=== PATIENT | female | born 1975 | race Caucasian/White ===

== ENCOUNTER 2018-08-24 23:41 | Inpatient (IN) | payer MEDICAID, OTHER ==
[2018-08-25] MEDS ORDERED: Sodium Chloride 0.9% 1,000 ML IV STA ×2 (01:13→04:39)
--- NOTE | 2018-08-25 01:16 | ED PDOC ---
HPI: Abdomen Time Seen by Provider: 08/25/18 00:30 Chief Complaint (Nursing): Abdominal Pain Chief Complaint (Provider): abdominal pain History Per: Patient History/Exam Limitations: no limitations Onset/Duration Of Symptoms: Hrs (x5) Current Symptoms Are (Timing): Still Present Location Of Pain/Discomfort: Epigastric Quality Of Discomfort: "Pain" Associated Symptoms: Nausea. denies: Fever, Chills, Vomiting, Diarrhea, Constipation Additional Complaint(s): Beth Velasquez is a 42 year old female, with a past medical history of x2 open heart surgeries due to rheumatic heart disease and infection, who presents to the emergency department accompanied by family for evaluation of an epigastric pain associated with nausea onset since 18:00 tonight. Patient states pain radiates to the back, her last bowel movement was at 19:00 tonight. She denies any fever, chills, cough, chest pain, shortness of breath, vomit, diarrhea, gases, constipation or other medical complaints. PMD: None provided. Past Medical History Reviewed: Historical Data, Nursing Documentation, Vital Signs Vital Signs: Last Vital Signs Temp 98.7 F 08/25/18 00:05 Pulse 73 08/25/18 00:05 Resp 18 08/25/18 00:05 BP 135/73 08/25/18 00:05 Pulse Ox 98 08/25/18 00:05 Primary Care Provider: Rashad Juarez - Medical History Other PMH: rheumatic heart disease, heart infection - Surgical History Surgical History: Cholecystectomy Other surgeries: x2 open heart - Family History Family History: States: Unknown Family Hx - Home Medications Home Medications: Ambulatory Orders Medication Instructions Recorded Metoprolol Succinate [Kapspargo 50 mg PO DAILY 08/25/18 Sprinkle] Warfarin [Coumadin] 5 mg PO ASDIR 08/25/18 Warfarin [Coumadin] 7.5 mg PO ASDIR 08/25/18 - Allergies Allergies/Adverse Reactions: Allergies Allergy/AdvReac Type Severity Reaction Status Date / Time No Known Allergies Allergy Verified 08/25/18 00:05 Review of Systems ROS Statement: Except As Marked, All Systems Reviewed And Found Negative Constitutional: Negative for: Fever, Chills Cardiovascular: Negative for: Chest Pain Respiratory: Negative for: Cough, Shortness of Breath Gastrointestinal: Positive for: Nausea, Abdominal Pain. Negative for: Vomiting, Diarrhea, Constipation Physical Exam - Reviewed Nursing Documentation Reviewed: Yes Vital Signs Reviewed: Yes - Physical Exam Appears: Positive for: No Acute Distress Head Exam: Positive for: ATRAUMATIC, NORMAL INSPECTION, NORMOCEPHALIC Skin: Positive for: Normal Color, Warm, Dry Eye Exam: Positive for: Normal appearance, EOMI, PERRL Neck: Positive for: Normal, Painless ROM Cardiovascular/Chest: Positive for: Regular Rate, Rhythm. Negative for: Murmur Respiratory: Positive for: Normal Breath Sounds. Negative for: Respiratory Distress Gastrointestinal/Abdominal: Positive for: Normal Exam, Soft, Other (large surgical scars across the upper abdomen). Negative for: Tenderness, Guarding, Rebound Back: Positive for: Normal Inspection. Negative for: L CVA Tenderness, R CVA Tenderness, Vertebral Tenderness Extremity: Positive for: Normal ROM (upper and lower extremities). Negative for: Deformity, Swelling Neurological/Psych: Positive for: Awake, Alert, Normal Tone - Laboratory Results Result Diagrams: 08/25/18 01:09 08/25/18 11:40 - ECG O2 Sat by Pulse Oximetry: 98 (RA) Pulse Ox Interpretation: Normal Medical Decision Making Medical Decision Making: Time: 00:30 Initial Impression: Extensive surgical and cardiac history with epigastric abdominal pain. R/o cardiac etiology. Patient with vomiting r/o SVR vs other pathologies Initial Plan: --VBG --Abd & Pelvis IV Contrast [CT] --EKG --CMP --BNP --Troponin I --CBC w/ differential --PTT --PT --Chest Portable [RAD] --Urinalysis --Reevaluation 03:[address] COMMENTS: 5.2 cm left ovarian cyst. 2.2 cm right ovarian cyst. Cholecystectomy. Dilated common bile duct measuring 12.3 mm in its largest transverse dimension. Correlation with LFTs is suggested. Dilated intrahepatic biliary tree. Mild thickening of the stomach. The liver is of uniform attenuation without mass or defect. The spleen is normal. The pancreas is of normal contour and attenuation characteristics. There is no evidence of adrenal mass. Both kidneys demonstrate prompt and equal nephrograms. The kidneys are normal in size, shape and configuration. There is no evidence of renal or ureteral mass. No renal or ureteral calculi are identified. There is no hydroureter or hydronephrosis. No evidence for appendicitis. There is no bowel wall thickening. No evidence for small or large bowel obstruction. There is no evidence of abdominal ascites or lymphadenopathy. There is no evidence of intrinsic or extrinsic bladder mass. There is no pelvic ascites or lymphadenopathy. Images of the lung bases show no evidence of pleural or parenchymal mass. There are no pleural effusions. The bony structures are free of lytic or blastic lesions. IMPRESSION: 5.2 cm left ovarian cyst. 2.2 cm right ovarian cyst. Cholecystectomy. Dilated common bile duct measuring 12.3 mm in its largest transverse dimension. Correlation with LFTs is suggested. Dilated intrahepatic biliary tree. Mild thickening of the stomach, probably mild gastritis. Thank you for your kind referral of this patient. 05:10 Consulted surgery, MRCP ordered. Patient admitted to hospitalist. Normal WBC, no indication for antibiotics at this time. Scribe Attestation: Documented by Yamil Gutierrez, acting as a scribe for Amanda Quiroz. Provider Scribe Attestation: All medical record entries made by the Scribe were at my direction and personally dictated by me. I have reviewed the chart and agree that the record accurately reflects my personal performance of the history, physical exam, medical decision making, and the department course for this patient. I have also personally directed, reviewed, and agree with the discharge instructions and disposition. Disposition - Clinical Impression Clinical Impression: Abdominal pain - Disposition Disposition Time: 05:10 Condition: FAIR
[2018-08-25 01:18] LABS: BASO # 0.1 K/uL (0.0-0.2); BASO % 0.7 % (0.0-2.0); EOS % 0.5 % (0.0-4.0); HEMOGLOBIN 12.8 g/dL (12.0-16.0); LYMPH # 0.5 K/uL (1.0-4.3); LYMPH % 5.4 % (20.0-40.0); MEAN CELL VOLUME 84.6 fl (81.0-99.0); MEAN CORPUSCULAR HGB CONC 33.1 g/dL (33.0-37.0); MEAN PLATELET VOLUME 9.4 fl (7.2-11.7); MONO # 0.5 K/uL (0.0-0.8); MONO % 5.1 % (0.0-10.0); NEUT % 88.3 % (50.0-75.0); NRBC % 0.1 % (0.0-0.0); PLATELET COUNT 219 K/uL (130-400); RBC 4.55 Mil/uL (3.80-5.20); RED CELL DISTRIBUTION WIDTH 14.5 % (11.5-14.5); WHITE BLOOD COUNT 9.1 K/uL (4.8-10.8)
[2018-08-25 01:21] LABS: VENOUS BLOOD GAS BASE EXCESS 0.1 mmol/L (0.0-2.0); VENOUS BLOOD GAS PCO2 56 mmHg (40-60); VENOUS BLOOD GAS PO2 23 mm/Hg (30-55)
[2018-08-25 01:28] LABS: BLOOD UREA NITROGEN 17 mg/dl (7-17); CALCIUM 9.2 mg/dL (8.4-10.2); GFR NON-AFRICAN AMERICAN > 60
[2018-08-25 01:33] LABS: SQUAMOUS EPITHIAL 2 /hpf (0-5); URINE BILIRUBIN SMALL (NEGATIVE); URINE BLOOD SMALL (NEGATIVE); URINE CLARITY SLIGHTY-CLOUDY (Clear); URINE COLOR AMBER (YELLOW); URINE GLUCOSE (UA) NEG (NEGATIVE); URINE LEUKOCYTE ESTERASE NEG Leu/uL (Negative); URINE PROTEIN 100 mg/dL (NEGATIVE)
[2018-08-25 01:36] LABS: ALB/GLOB RATIO 1.2 (1.0-2.1); ALT/SGPT 1706 U/L (9-52); AST/SGOT 1456 U/L (14-36)
[2018-08-25 01:40] LABS: B-TYPE NATRIURETIC PEPTIDE 359 pg/ml (0-450)
[2018-08-25] MEDS ORDERED: Iohexol 300 100 ML IJ ONE (02:28)
[2018-08-25] MEDS ORDERED: Sodium Chloride 0.9% 50 ML IV ONE ×2 (02:29→07:14)
[2018-08-25 03:04] LABS: BANDS 1 % (0-2); LYMPHOCYTE 5 % (20-50); MONOCYTE 1 % (0-10); MYELOCYTE 1 % (0-0); NEUTROPHIL 92 % (42-75); TOTAL CELLS COUNTED 100
[2018-08-25 03:05] LABS: ANISOCYTOSIS SLIGHT; BURR CELLS SLIGHT; HYPOCHROMIC SLIGHT; LARGE PLATELETS PRESENT; PLATELET ESTIMATE NORMAL (NORMAL)
--- NOTE | 2018-08-25 05:51 | CP.PCM.HP ---
<Lana Tate - Last Filed: 08/25/18 07:05> History of Present Illness - History of Present Illness History of Present Illness: CC: abd pain HPI: 42 YO Female with PMHx of cardiac valve repair (x2), presents to [facility] ED for abdominal pain. Patient states that her pain started around 6PM last night, pain persisted and she became very nauseous, dry heaving but no emesis thus far. Pain is located in the epigastric area with radiation to the back, sharp/cramping in nature, not associated worsening with movement and denies fevers or chills. Normal BMs and no new foods (sushi yesterday and home foods). Of note, patient states that since her cholesecectomy (2000) she has had similar episodes of pain 1-2 x a month, but none as severe as today. No trauma, no PO Tylenol intake, no natural med PO intake. Voyce [id number] PMHx: cardiac valvular repair (x2, metallic mitral valve, does not recall the second valve) SurgHx: see above, cholesesectomy (2000) FHx: cardiac disease, denies liver disease SHx: lives with family, denies ETOH, smoking and illicit drug use NKDA Meds: Metoprolol and Warfarin 5mg Monday and Monday, all other days Warfarin 7.5mg Present on Admission - Present on Admission Any Indicators Present on Admission: No Review of Systems - Constitutional Constitutional: absent: Chills, Fever - Cardiovascular Cardiovascular: absent: Chest Pain, Dyspnea, Palpitations - Respiratory Respiratory: absent: Cough, Dyspnea - Gastrointestinal Gastrointestinal: Abdominal Pain, Nausea. absent: Vomiting - Genitourinary Genitourinary: absent: Dysuria Past Patient History - Past Social History Smoking Status: Never Smoked Alcohol: None Drugs: Denies Home Situation {Lives}: With Family - SURGICAL HISTORY Hx Cholecystectomy: Yes - ANESTHESIA Hx Anesthesia: Yes Hx Anesthesia Reactions: No Meds Allergies/Adverse Reactions: Allergies Allergy/AdvReac Type Severity Reaction Status Date / Time No Known Allergies Allergy Verified 08/25/18 00:05 Physical Exam - Constitutional Appears: No Acute Distress - Head Exam Head Exam: NORMAL INSPECTION - Eye Exam Eye Exam: EOMI, Normal appearance - ENT Exam ENT Exam: Mucous Membranes Moist - Respiratory Exam Respiratory Exam: Clear to Auscultation Bilateral, NORMAL BREATHING PATTERN. absent: Wheezes - Cardiovascular Exam Cardiovascular Exam: Clicks, +S2, Systolic Murmur (and clicking of the valve ) Additional comments: sternotomy scar noted, old, healed - GI/Abdominal Exam GI & Abdominal Exam: Normal Bowel Sounds, Soft. absent: Tenderness Additional comments: old open master scar noted, healed - Extremities Exam Extremities exam: Positive for: normal inspection. Negative for: pedal edema - Neurological Exam Neurological exam: Alert, Oriented x3 - Psychiatric Exam Psychiatric exam: Anxious - Skin Skin Exam: Dry, Normal Color, Warm Results - Vital Signs Recent Vital Signs: Last Vital Signs Temp 98.7 F 08/25/18 00:05 Pulse 73 08/25/18 00:05 Resp 18 08/25/18 00:05 BP 135/73 08/25/18 00:05 Pulse Ox 98 08/25/18 05:36 - Labs Result Diagrams: 08/25/18 01:09 08/25/18 01:09 Labs: Laboratory Results - last 24 hr 08/25/18 08/25/18 08/25/18 01:09 01:09 01:09 WBC 9.1 RBC 4.55 Hgb 12.8 Hct 38.5 MCV 84.6 MCH 28.0 MCHC 33.1 RDW 14.5 Plt Count 219 MPV 9.4 Neut % (Auto) 88.3 H Lymph % (Auto) 5.4 L [place] % (Auto) 5.1 Eos % (Auto) 0.5 Baso % (Auto) 0.7 Neut # (Auto) 8.0 H Lymph # (Auto) 0.5 L [place] # (Auto) 0.5 Eos # (Auto) 0.0 Baso # (Auto) 0.1 Neutrophils % (Manual) 92 H Band Neutrophils % 1 Lymphocytes % (Manual) 5 L Monocytes % (Manual) 1 Myelocytes % 1 H Platelet Estimate Normal Large Platelets Present Hypochromasia (manual) Slight Anisocytosis (manual) Slight [place] Cells Slight Acanthocytes (Spur) Slight APTT 46.4 H pO2 VBG pH VBG pCO2 VBG HCO3 VBG Total CO2 VBG O2 Sat (Calc) VBG Base Excess VBG Potassium Glucose Lactate FiO2 Sodium 139 Potassium 5.4 H Chloride 103 Carbon Dioxide 26 Anion Gap 15 BUN 17 Creatinine 0.7 Est GFR ( Amer) > 60 Est GFR (Non-Af Amer) > 60 Random Glucose 114 H Calcium 9.2 Total Bilirubin 2.6 H AST 1456 H ALT 1706 H Alkaline Phosphatase 339 H Troponin I < 0.0120 NT-Pro-B Natriuret Pep 359 Total Protein 9.1 H Albumin 5.0 Globulin 4.1 H Albumin/Globulin Ratio 1.2 Lipase Venous Blood Potassium Urine Color Urine Clarity Urine pH Ur Specific [place] Urine Protein Urine Glucose (UA) Urine Ketones Urine Blood Urine Nitrate Urine Bilirubin Urine Urobilinogen Ur Leukocyte Esterase Urine RBC (Auto) Urine Microscopic WBC Ur Squamous Epith Cells 08/25/18 08/25/18 08/25/18 01:09 01:13 04:40 WBC RBC Hgb Hct MCV MCH MCHC RDW Plt Count MPV Neut % (Auto) Lymph % (Auto) [place] % (Auto) Eos % (Auto) Baso % (Auto) Neut # (Auto) Lymph # (Auto) [place] # (Auto) Eos # (Auto) Baso # (Auto) Neutrophils % (Manual) Band Neutrophils % Lymphocytes % (Manual) Monocytes % (Manual) Myelocytes % Platelet Estimate Large Platelets Hypochromasia (manual) Anisocytosis (manual) [place] Cells Acanthocytes (Spur) APTT pO2 23 L VBG pH 7.30 L VBG pCO2 56 VBG HCO3 23.3 VBG Total CO2 29.3 H VBG O2 Sat (Calc) 38.2 L VBG Base Excess 0.1 VBG Potassium 4.5 Glucose 114 H Lactate 1.7 FiO2 21.0 Sodium 138.0 Potassium Chloride 105.0 Carbon Dioxide Anion Gap BUN Creatinine Est GFR ( Amer) Est GFR (Non-Af Amer) Random Glucose Calcium Total Bilirubin AST ALT Alkaline Phosphatase Troponin I NT-Pro-B Natriuret Pep Total Protein Albumin Globulin Albumin/Globulin Ratio Lipase 111 Venous Blood Potassium 4.5 Urine Color Michelle Urine Clarity Slighty-cloudy Urine pH 5.0 Ur Specific [place] 1.039 H Urine Protein 100 Urine Glucose (UA) Neg Urine Ketones Negative Urine Blood Small Urine Nitrate Negative Urine Bilirubin Small Urine Urobilinogen 4.0 H Ur Leukocyte Esterase Neg Urine RBC (Auto) 34 H Urine Microscopic WBC 3 Ur Squamous Epith Cells 2 Assessment & Plan - Assessment and Plan (Free Text) Assessment: Assessment/Plan: 42 YO Female with PMHx of cardiac valve repair (x2) is admitted for elevated li sherin enzymes with biliary tree dilatation. Elevated Transaminases -unknown acuity -viral vs toxic vs obstruction vs other causes -AST/ALT 1456/1706 with elevated bili -CT abd and pelvis sig for dilated common bile duct and intrahepatic biliary system, ovarian cysts -keep NPO, Pain management as needed, Zofran PRN -follow up blood work -surgery and GI consulted; follow up recs -MRCP today -consider abx if additional procedure is planned Hyperkalemia -K elevated to 5.4 -1x dose of kayxalete ordered Cardiac valvular disease -chronic -s/p repair with metallic mitral valve -c/w BB -follow up blood work, INR -defer to surgery for anticoagulation, if planned for procedure DVT prolx -on warfarin at home -SCDs for now <Luis Roy - Last Filed: 08/25/18 07:24> Results - Vital Signs Recent Vital Signs: Last Vital Signs Temp 98.7 F 08/25/18 00:05 Pulse 73 08/25/18 00:05 Resp 18 08/25/18 00:05 BP 135/73 08/25/18 00:05 Pulse Ox 98 08/25/18 05:36 - Labs Result Diagrams: 08/25/18 01:09 08/25/18 01:09 Labs: Laboratory Results - last 24 hr 08/25/18 08/25/18 08/25/18 01:09 01:09 01:09 WBC 9.1 RBC 4.55 Hgb 12.8 Hct 38.5 MCV 84.6 MCH 28.0 MCHC 33.1 RDW 14.5 Plt Count 219 MPV 9.4 Neut % (Auto) 88.3 H Lymph % (Auto) 5.4 L [place] % (Auto) 5.1 Eos % (Auto) 0.5 Baso % (Auto) 0.7 Neut # (Auto) 8.0 H Lymph # (Auto) 0.5 L [place] # (Auto) 0.5 Eos # (Auto) 0.0 Baso # (Auto) 0.1 Neutrophils % (Manual) 92 H Band Neutrophils % 1 Lymphocytes % (Manual) 5 L Monocytes % (Manual) 1 Myelocytes % 1 H Platelet Estimate Normal Large Platelets Present Hypochromasia (manual) Slight Anisocytosis (manual) Slight [place] Cells Slight Acanthocytes (Spur) Slight PT Cancelled INR Cancelled APTT Cancelled pO2 VBG pH VBG pCO2 VBG HCO3 VBG Total CO2 VBG O2 Sat (Calc) VBG Base Excess VBG Potassium Glucose Lactate FiO2 Sodium 139 Potassium 5.4 H Chloride 103 Carbon Dioxide 26 Anion Gap 15 BUN 17 Creatinine 0.7 Est GFR ( Amer) > 60 Est GFR (Non-Af Amer) > 60 Random Glucose 114 H Calcium 9.2 Total Bilirubin 2.6 H AST 1456 H ALT 1706 H Alkaline Phosphatase 339 H Troponin I < 0.0120 NT-Pro-B Natriuret Pep 359 Total Protein 9.1 H Albumin 5.0 Globulin 4.1 H Albumin/Globulin Ratio 1.2 Lipase Venous Blood Potassium Urine Color Urine Clarity Urine pH Ur Specific [place] Urine Protein Urine Glucose (UA) Urine Ketones Urine Blood Urine Nitrate Urine Bilirubin Urine Urobilinogen Ur Leukocyte Esterase Urine RBC (Auto) Urine Microscopic WBC Ur Squamous Epith Cells 08/25/18 08/25/18 08/25/18 01:09 01:13 04:40 WBC RBC Hgb Hct MCV MCH MCHC RDW Plt Count MPV Neut % (Auto) Lymph % (Auto) [place] % (Auto) Eos % (Auto) Baso % (Auto) Neut # (Auto) Lymph # (Auto) [place] # (Auto) Eos # (Auto) Baso # (Auto) Neutrophils % (Manual) Band Neutrophils % Lymphocytes % (Manual) Monocytes % (Manual) Myelocytes % Platelet Estimate Large Platelets Hypochromasia (manual) Anisocytosis (manual) Joon Cells Acanthocytes (Spur) PT INR APTT pO2 23 L VBG pH 7.30 L VBG pCO2 56 VBG HCO3 23.3 VBG Total CO2 29.3 H VBG O2 Sat (Calc) 38.2 L VBG Base Excess 0.1 VBG Potassium 4.5 Glucose 114 H Lactate 1.7 FiO2 21.0 Sodium 138.0 Potassium Chloride 105.0 Carbon Dioxide Anion Gap BUN Creatinine Est GFR ( Amer) Est GFR (Non-Af Amer) Random Glucose Calcium Total Bilirubin AST ALT Alkaline Phosphatase Troponin I NT-Pro-B Natriuret Pep Total Protein Albumin Globulin Albumin/Globulin Ratio Lipase 111 Venous Blood Potassium 4.5 Urine Color [place] Urine Clarity Slighty-cloudy Urine pH 5.0 Ur Specific [place] 1.039 H Urine Protein 100 Urine Glucose (UA) Neg Urine Ketones Negative Urine Blood Small Urine Nitrate Negative Urine Bilirubin Small Urine Urobilinogen 4.0 H Ur Leukocyte Esterase Neg Urine RBC (Auto) 34 H Urine Microscopic WBC 3 Ur Squamous Epith Cells 2 08/25/18 05:34 WBC RBC Hgb Hct MCV MCH MCHC RDW Plt Count MPV Neut % (Auto) Lymph % (Auto) [place] % (Auto) Eos % (Auto) Baso % (Auto) Neut # (Auto) Lymph # (Auto) [place] # (Auto) Eos # (Auto) Baso # (Auto) Neutrophils % (Manual) Band Neutrophils % Lymphocytes % (Manual) Monocytes % (Manual) Myelocytes % Platelet Estimate Large Platelets Hypochromasia (manual) Anisocytosis (manual) Joon Cells Acanthocytes (Spur) PT INR APTT pO2 VBG pH VBG pCO2 VBG HCO3 VBG Total CO2 VBG O2 Sat (Calc) VBG Base Excess VBG Potassium Glucose Lactate FiO2 Sodium Potassium Chloride Carbon Dioxide Anion Gap BUN Creatinine Est GFR ( Amer) Est GFR (Non-Af Amer) Random Glucose Calcium Total Bilirubin AST ALT Alkaline Phosphatase Troponin I NT-Pro-B Natriuret Pep Total Protein Albumin Globulin Albumin/Globulin Ratio Lipase 107 Venous Blood Potassium Urine Color Urine Clarity Urine pH Ur Specific [place] Urine Protein Urine Glucose (UA) Urine Ketones Urine Blood Urine Nitrate Urine Bilirubin Urine Urobilinogen Ur Leukocyte Esterase Urine RBC (Auto) Urine Microscopic WBC Ur Squamous Epith Cells Assessment & Plan - Assessment and Plan (Free Text) Plan: Patient seen and examined at bedside, agree with assessment and plan as per above. Pt seen and examined at bedside with the resident, agree with with the management as per above. - Date & Time Date: 08/25/18 Time: 07:24
[2018-08-25] MEDS ORDERED: Sodium Chloride 0.9% 1,000 ML IV SCH (06:00)
[2018-08-25] MEDS ORDERED: Gadodiamide 287 MG/ML VIAL (15ML) IV ONE (07:14)
--- NOTE | 2018-08-25 07:58 | CP.PCM.CON ---
<Jose Mclean - Last Filed: 08/25/18 11:32> History of Present Illness - History of Present Illness History of Present Illness: General Surgery Consult for Dr. Ortega Reason for consult: abd pain, dilated cbd, suspected choledolcholithiasis 42 F with PMH that includes s/p laparoscopic cholecystectomy, cardiac valve repair x 2 presents to [facility] for complaint of abdominal pain. Patient seen and evaluated in the ED. Patient states that her pain started around 6PM last night. The pain persisted and she became very nauseous. She rates pain and severe and describes it as constant and sharp located in the epigastrium with radiation to the back. She denies any specific alleviating or aggravating factors. Denies fevers or chills. Patient reports having this pain intermittently over the last year but this is the worst episode she has experienced. CT abd/pelvis done in ED revealed dilated cbd suspicious for choledolcholithiasis (see full report). MRCP is pending. Denies cp, SOB, palpitations, vomiting, diarrhea, incontinence, urinary symptoms. PMH: valve repair x 2 on warfarin, rheumatic fever PSH: cholecystectomy (2000), cardiac valvular repair x 2 (one is metal mitral valve) FH: cardiac disease Social: denies ETOH, tobacco and illicit drug use ALL: NKDA Meds: Metoprolol, Warfarin 5mg Monday and Monday, all other days Warfarin 7.5mg Review of Systems - Review of Systems All systems: reviewed and no additional remarkable complaints except (as per HPI) Past Patient History - Past Social History Smoking Status: Never Smoked Alcohol: None Drugs: Denies Home Situation {Lives}: With Family - CARDIAC Hx Cardiac Disorders: Yes Hx Heart Murmur: Yes Other/Comment: cardiac valve repair, rheumatic disease - PULMONARY Hx Respiratory Disorders: No - NEUROLOGICAL Hx Neurological Disorder: No - HEENT Hx HEENT Problems: No - RENAL Hx Chronic Kidney Disease: No - ENDOCRINE/METABOLIC Hx Endocrine Disorders: No - HEMATOLOGICAL/ONCOLOGICAL Hx Blood Disorders: No - INTEGUMENTARY Hx Dermatological Problems: No - MUSCULOSKELETAL/RHEUMATOLOGICAL Hx Musculoskeletal Disorders: No - GASTROINTESTINAL Hx Gastrointestinal Disorders: No - GENITOURINARY/GYNECOLOGICAL Hx Genitourinary Disorders: No - PSYCHIATRIC Hx Psychophysiologic Disorder: No Hx Substance Use: No - SURGICAL HISTORY Hx Cholecystectomy: Yes - ANESTHESIA Hx Anesthesia: Yes Hx Anesthesia Reactions: No Meds Allergies/Adverse Reactions: Allergies Allergy/AdvReac Type Severity Reaction Status Date / Time No Known Allergies Allergy Verified 08/25/18 00:05 - Medications Medications: Current Medications Sodium Chloride (Sodium Chloride 0.9%) 1,000 mls @ 100 mls/hr IV .Q10H RADHA Stop: 08/26/18 05:46 Last Admin: 08/25/18 06:55 Dose: 100 mls/hr Morphine Sulfate (Morphine) 2 mg IVP Q4 PRN PRN Reason: Pain, severe (8-10) Last Admin: 08/25/18 06:55 Dose: 2 mg Morphine Sulfate (Morphine) 1 mg IVP Q6 PRN PRN Reason: Pain, moderate (4-7) Ondansetron HCl (Zofran Inj) 4 mg IVP Q6 PRN PRN Reason: Nausea/Vomiting Last Admin: 08/25/18 06:55 Dose: 4 mg Physical Exam - Constitutional Appears: Non-toxic, No Acute Distress - Head Exam Head Exam: ATRAUMATIC, NORMOCEPHALIC - Eye Exam Eye Exam: EOMI Pupil Exam: PERRL - ENT Exam ENT Exam: Mucous Membranes Moist - Respiratory Exam Respiratory Exam: NORMAL BREATHING PATTERN - Cardiovascular Exam Cardiovascular Exam: REGULAR RHYTHM - GI/Abdominal Exam GI & Abdominal Exam: Normal Bowel Sounds, Soft, Tenderness (RUQ/epigastrium). absent: Distended, Firm, Guarding, Hernia, Mass, Rebound, Rigid - Extremities Exam Extremities exam: Positive for: normal capillary refill, pedal pulses present - Back Exam Back exam: absent: CVA tenderness (L), CVA tenderness (R) - Neurological Exam Neurological exam: Alert, CN II-XII Intact, Oriented x3 - Psychiatric Exam Psychiatric exam: Normal Affect, Normal Mood - Skin Skin Exam: Dry, Intact, Warm Results - Vital Signs Recent Vital Signs: Last Vital Signs Temp 98.7 F 08/25/18 00:05 Pulse 73 08/25/18 00:05 Resp 18 08/25/18 00:05 BP 135/73 08/25/18 00:05 Pulse Ox 98 08/25/18 05:36 - Labs Result Diagrams: 08/25/18 01:09 08/25/18 01:09 Labs: Laboratory Results - last 24 hr 08/25/18 08/25/18 08/25/18 01:09 01:09 01:09 WBC 9.1 RBC 4.55 Hgb 12.8 Hct 38.5 MCV 84.6 MCH 28.0 MCHC 33.1 RDW 14.5 Plt Count 219 MPV 9.4 Neut % (Auto) 88.3 H Lymph % (Auto) 5.4 L [place] % (Auto) 5.1 Eos % (Auto) 0.5 Baso % (Auto) 0.7 Neut # (Auto) 8.0 H Lymph # (Auto) 0.5 L [place] # (Auto) 0.5 Eos # (Auto) 0.0 Baso # (Auto) 0.1 Neutrophils % (Manual) 92 H Band Neutrophils % 1 Lymphocytes % (Manual) 5 L Monocytes % (Manual) 1 Myelocytes % 1 H Platelet Estimate Normal Large Platelets Present Hypochromasia (manual) Slight Anisocytosis (manual) Slight [place] Cells Slight Acanthocytes (Spur) Slight PT Cancelled INR Cancelled APTT Cancelled pO2 VBG pH VBG pCO2 VBG HCO3 VBG Total CO2 VBG O2 Sat (Calc) VBG Base Excess VBG Potassium Glucose Lactate FiO2 Sodium 139 Potassium 5.4 H Chloride 103 Carbon Dioxide 26 Anion Gap 15 BUN 17 Creatinine 0.7 Est GFR ( Amer) > 60 Est GFR (Non-Af Amer) > 60 Random Glucose 114 H Calcium 9.2 Total Bilirubin 2.6 H AST 1456 H ALT 1706 H Alkaline Phosphatase 339 H Troponin I < 0.0120 NT-Pro-B Natriuret Pep 359 Total Protein 9.1 H Albumin 5.0 Globulin 4.1 H Albumin/Globulin Ratio 1.2 Lipase Venous Blood Potassium Urine Color Urine Clarity Urine pH Ur Specific [place] Urine Protein Urine Glucose (UA) Urine Ketones Urine Blood Urine Nitrate Urine Bilirubin Urine Urobilinogen Ur Leukocyte Esterase Urine RBC (Auto) Urine Microscopic WBC Ur Squamous Epith Cells 08/25/18 08/25/18 08/25/18 01:09 01:13 04:40 WBC RBC Hgb Hct MCV MCH MCHC RDW Plt Count MPV Neut % (Auto) Lymph % (Auto) [place] % (Auto) Eos % (Auto) Baso % (Auto) Neut # (Auto) Lymph # (Auto) [place] # (Auto) Eos # (Auto) Baso # (Auto) Neutrophils % (Manual) Band Neutrophils % Lymphocytes % (Manual) Monocytes % (Manual) Myelocytes % Platelet Estimate Large Platelets Hypochromasia (manual) Anisocytosis (manual) [place] Cells Acanthocytes (Spur) PT INR APTT pO2 23 L VBG pH 7.30 L VBG pCO2 56 VBG HCO3 23.3 VBG Total CO2 29.3 H VBG O2 Sat (Calc) 38.2 L VBG Base Excess 0.1 VBG Potassium 4.5 Glucose 114 H Lactate 1.7 FiO2 21.0 Sodium 138.0 Potassium Chloride 105.0 Carbon Dioxide Anion Gap BUN Creatinine Est GFR ( Amer) Est GFR (Non-Af Amer) Random Glucose Calcium Total Bilirubin AST ALT Alkaline Phosphatase Troponin I NT-Pro-B Natriuret Pep Total Protein Albumin Globulin Albumin/Globulin Ratio Lipase 111 Venous Blood Potassium 4.5 Urine Color Michelle Urine Clarity Slighty-cloudy Urine pH 5.0 Ur Specific [place] 1.039 H Urine Protein 100 Urine Glucose (UA) Neg Urine Ketones Negative Urine Blood Small Urine Nitrate Negative Urine Bilirubin Small Urine Urobilinogen 4.0 H Ur Leukocyte Esterase Neg Urine RBC (Auto) 34 H Urine Microscopic WBC 3 Ur Squamous Epith Cells 2 08/25/18 05:34 WBC RBC Hgb Hct MCV MCH MCHC RDW Plt Count MPV Neut % (Auto) Lymph % (Auto) [place] % (Auto) Eos % (Auto) Baso % (Auto) Neut # (Auto) Lymph # (Auto) [place] # (Auto) Eos # (Auto) Baso # (Auto) Neutrophils % (Manual) Band Neutrophils % Lymphocytes % (Manual) Monocytes % (Manual) Myelocytes % Platelet Estimate Large Platelets Hypochromasia (manual) Anisocytosis (manual) [place] Cells Acanthocytes (Spur) PT INR APTT pO2 VBG pH VBG pCO2 VBG HCO3 VBG Total CO2 VBG O2 Sat (Calc) VBG Base Excess VBG Potassium Glucose Lactate FiO2 Sodium Potassium Chloride Carbon Dioxide Anion Gap BUN Creatinine Est GFR ( Amer) Est GFR (Non-Af Amer) Random Glucose Calcium Total Bilirubin AST ALT Alkaline Phosphatase Troponin I NT-Pro-B Natriuret Pep Total Protein Albumin Globulin Albumin/Globulin Ratio Lipase 107 Venous Blood Potassium Urine Color Urine Clarity Urine pH Ur Specific [place] Urine Protein Urine Glucose (UA) Urine Ketones Urine Blood Urine Nitrate Urine Bilirubin Urine Urobilinogen Ur Leukocyte Esterase Urine RBC (Auto) Urine Microscopic WBC Ur Squamous Epith Cells Assessment & Plan - Assessment and Plan (Free Text) Assessment: 42F s/p laparoscopic cholecystectomy in 2000 now presents with abd pain and dilated CBD on imaging Plan: -May give liquids -IVf -analgesics/Anti-metics PRN -f/u MRCP -Recommend GI consult for possible ERCP -Will continue to follow -Medical management as per primary -Discussed with Dr. Collins PGY2 - Date & Time Date: 08/25/18 Time: 08:00 <Rusty Schneider - Last Filed: 08/26/18 12:22> Meds - Medications Medications: Current Medications Lidocaine (Lidoderm) 1 ea TD DAILY [facility] Last Admin: 08/26/18 09:04 Dose: 1 ea Metoprolol Succinate (Toprol Xl) 50 mg PO DAILY [facility] Last Admin: 08/26/18 09:03 Dose: 50 mg Morphine Sulfate (Morphine) 2 mg IVP Q4 PRN PRN Reason: Pain, severe (8-10) Last Admin: 08/25/18 17:28 Dose: 2 mg Morphine Sulfate (Morphine) 1 mg IVP Q6 PRN PRN Reason: Pain, moderate (4-7) Last Admin: 08/26/18 10:48 Dose: 1 mg Ondansetron HCl (Zofran Inj) 4 mg IVP Q6 PRN PRN Reason: Nausea/Vomiting Last Admin: 08/25/18 13:07 Dose: 4 mg Pantoprazole Sodium (Protonix Inj) 40 mg IVP DAILY [facility] Last Admin: 08/26/18 09:04 Dose: 40 mg Results - Vital Signs Recent Vital Signs: Last Vital Signs Temp 99.1 F 08/26/18 08:25 Pulse 87 08/26/18 09:03 Resp 18 08/26/18 08:25 BP 115/74 08/26/18 09:03 Pulse Ox 94 L 08/26/18 08:25 - Labs Result Diagrams: 08/26/18 05:10 08/26/18 05:10 Labs: Laboratory Results - last 24 hr 08/25/18 08/25/18 08/25/18 06:04 11:40 11:40 WBC RBC Hgb Hct MCV MCH MCHC RDW Plt Count PT 69.1 H* INR 6.1 Sodium Potassium Chloride Carbon Dioxide Anion Gap BUN Creatinine Est GFR ( Amer) Est GFR (Non-Af Amer) Random Glucose Calcium Total Bilirubin AST ALT Alkaline Phosphatase Total Protein Albumin Globulin Albumin/Globulin Ratio Urine Opiates Screen Urine Methadone Screen Acetaminophen < 10.0 L Ur Barbiturates Screen Ur Phencyclidine Scrn Ur Amphetamines Screen U Benzodiazepines Scrn U Oth Cocaine Metabols U Cannabinoids Screen Hepatitis A IgM Ab Negative Hep Bs Antigen Negative Hep B Core IgM Ab Negative Hepatitis C Antibody Negative Blood Type Blood Type Confirm Antibody Screen BBK History Checked 08/25/18 08/25/18 08/25/18 11:40 11:40 14:45 WBC RBC Hgb Hct MCV MCH MCHC RDW Plt Count PT INR Sodium 137 Potassium 4.3 Chloride 104 Carbon Dioxide 22 Anion Gap 15 BUN 9 Creatinine 0.6 L Est GFR ( Amer) > 60 Est GFR (Non-Af Amer) > 60 Random Glucose 106 H Calcium 8.7 Total Bilirubin 3.0 H AST 786 H D ALT 1351 H Alkaline Phosphatase 335 H Total Protein 8.1 Albumin 4.5 Globulin 3.7 Albumin/Globulin Ratio 1.2 Urine Opiates Screen Urine Methadone Screen Acetaminophen Ur Barbiturates Screen Ur Phencyclidine Scrn Ur Amphetamines Screen U Benzodiazepines Scrn U Oth Cocaine Metabols U Cannabinoids Screen Hepatitis A IgM Ab Hep Bs Antigen Hep B Core IgM Ab Hepatitis C Antibody Blood Type A POSITIVE Blood Type Confirm A POSITIVE Antibody Screen Negative BBK History Checked No verified bt 08/25/18 08/26/18 08/26/18 20:04 05:10 05:10 WBC 5.0 RBC 3.71 L Hgb 10.4 L D Hct 31.2 L MCV 84.0 MCH 28.1 MCHC 33.5 RDW 14.8 H Plt Count 158 PT INR Sodium 138 Potassium 3.7 Chloride 107 Carbon Dioxide 25 Anion Gap 10 BUN 7 Creatinine 0.7 Est GFR ( Amer) > 60 Est GFR (Non-Af Amer) > 60 Random Glucose 138 H Calcium 8.0 L Total Bilirubin 1.5 H AST 336 H D ALT 815 H D Alkaline Phosphatase 230 H D Total Protein 6.3 Albumin 3.3 L D Globulin 3.1 Albumin/Globulin Ratio 1.1 Urine Opiates Screen Positive H Urine Methadone Screen Negative Acetaminophen Ur Barbiturates Screen Negative Ur Phencyclidine Scrn Negative Ur Amphetamines Screen Negative U Benzodiazepines Scrn Negative U Oth Cocaine Metabols Negative U Cannabinoids Screen Negative Hepatitis A IgM Ab Hep Bs Antigen Hep B Core IgM Ab Hepatitis C Antibody Blood Type Blood Type Confirm Antibody Screen BBK History Checked 08/26/18 09:29 WBC RBC Hgb Hct MCV MCH MCHC RDW Plt Count PT 83.2 H* INR 7.3 Sodium Potassium Chloride Carbon Dioxide Anion Gap BUN Creatinine Est GFR ( Amer) Est GFR (Non-Af Amer) Random Glucose Calcium Total Bilirubin AST ALT Alkaline Phosphatase Total Protein Albumin Globulin Albumin/Globulin Ratio Urine Opiates Screen Urine Methadone Screen Acetaminophen Ur Barbiturates Screen Ur Phencyclidine Scrn Ur Amphetamines Screen U Benzodiazepines Scrn U Oth Cocaine Metabols U Cannabinoids Screen Hepatitis A IgM Ab Hep Bs Antigen Hep B Core IgM Ab Hepatitis C Antibody Blood Type Blood Type Confirm Antibody Screen BBK History Checked Assessment & Plan - Assessment and Plan (Free Text) Plan: All medical record entries made by the resident were at my direction. I have reviewed the chart and agree that the record accurately reflects my personal performance of the history, physical exam, and medical decision making.
[2018-08-25 08:06] LABS: PARTIAL THROMBOPLASTIN TIME 56.4 Seconds (25.6-37.1)
[2018-08-25] MEDS ORDERED: Heparin 25,000units in D5W 25,000 UNITS/250 ML BAG IV SCH (08:30)
[2018-08-25 08:32] LABS: INR 4.9; PROTHROMBIN TIME 56.2 Seconds (9.8-13.1)
--- NOTE | 2018-08-25 10:43 | MRI ---
MRI abdomen without/with IV contrast MRCP Indication: elevated LFTs and dilated hepatic duct Technique: Multiplanar, multi sequence magnetic resonance images of the abdomen were obtained without and with the administration of intravenous gadolinium using a multi phase abdomen protocol. Rotating maximum intensity projection images of the biliary system were generated. A total of 964 images submitted for review Comparison: CT abdomen and pelvis with IV contrast performed the same day. Findings: Cholecystectomy. Dilated common bile duct measures approximately 17 mm in diameter. Small filling defect present, possibly small calculus. Intrahepatic biliary ductal dilatation. Distal common bile duct demonstrates abrupt taper; primary or secondary stricture not excluded. The pancreatic duct appears within normal limits of caliber. Hepatic steatosis. The spleen, pancreas, and adrenal glands appear unremarkable. The kidneys enhance symmetrically. No hydronephrosis or obstructing calculus identified. No enlarged abdominal lymph nodes are appreciated. Limited included portions of the abdomen: The stomach is under distended but appears thick walled from its mid to distal portion; correlate clinically for possibility of gastritis. Included bowel loops appear within normal limits of caliber without evidence of obstruction. Uterus is present. Suspect bilateral ovarian cysts. Recommend further evaluation with pelvic ultrasound. Limited views of the inferior thorax appear unremarkable. Impression: Cholecystectomy. Dilated common bile duct measures approximately 17 mm in diameter. Small filling defect present measuring approximately 6 mm, possibly small calculus. Distal common bile duct demonstrates abrupt taper; primary or secondary stricture not excluded. Intrahepatic biliary ductal dilatation. Recommend further evaluation with ERCP if indicated. Hepatic steatosis. Limited included portions of the abdomen: The stomach is under distended but appears thick walled from its mid to distal portion; correlate clinically for possibility of gastritis. Included bowel loops appear within normal limits of caliber without evidence of obstruction. Uterus is present. Suspect bilateral ovarian cysts. Recommend further evaluation with pelvic ultrasound.
--- NOTE | 2018-08-25 11:02 | RAD ---
Date of service: 08/25/2018 HISTORY: possible admission COMPARISON: No prior. FINDINGS: LUNGS: No active pulmonary disease. PLEURA: No significant pleural effusion identified, no pneumothorax apparent. CARDIOVASCULAR: No atherosclerotic calcification present No radiographic findings to suggest acute or significant cardiovascular disease. Incidental Finding(s): Postoperative changes related to sternotomy. OSSEOUS STRUCTURES: No significant abnormalities. VISUALIZED UPPER ABDOMEN: Normal. OTHER FINDINGS: None. IMPRESSION: No active disease.
[2018-08-25] MEDS: Dextrose 5%/0.9% NS 1,000 ML IV SCH ×2 (11:36→19:00)
--- NOTE | 2018-08-25 12:17 | CT ---
Date of service: 08/25/2018 PROCEDURE: CT Abdomen and Pelvis with contrast HISTORY: left/epig abd pain radiating to back COMPARISON: August 25, 2018. MRCP TECHNIQUE: Intravenous contrast dose: 95 cc Omnipaque 300. Radiation dose: Total exam DLP = 666.91 mGy-cm. This CT exam was performed using one or more of the following dose reduction techniques: Automated exposure control, adjustment of the mA and/or kV according to patient size, and/or use of iterative reconstruction technique. FINDINGS: LOWER THORAX: Unremarkable. LIVER: Hepatic steatosis. No focal masses. No intrahepatic bile duct dilatation or perihepatic ascites. Dilated intrahepatic biliary radicles. GALLBLADDER AND BILE DUCTS: Status post cholecystectomy. No abnormality is seen in the gallbladder fossa. Dilated common bile duct maximum measurement 18.4 mm. This tapers distally to 9.4 mm and near the a.m. pill of 3 mm. No visible common duct stone. PANCREAS: Neither focal nor diffuse abnormalities identified with respect to the pancreas or pancreatic duct in the setting of dilated common bile duct. SPLEEN: Unremarkable. ADRENALS: Unremarkable. No mass. KIDNEYS AND URETERS: Unremarkable. No hydronephrosis. No solid mass. VASCULATURE: Unremarkable. No aortic aneurysm. No atherosclerotic calcification or mural plaque present. BOWEL: Unremarkable. No obstruction. No gross mural thickening. APPENDIX: Normal appendix. PERITONEUM: Unremarkable. No free fluid. No free air. LYMPH NODES: Unremarkable. No enlarged lymph nodes. BLADDER: Unremarkable. REPRODUCTIVE: Unremarkable. BONES: No acute fracture. OTHER FINDINGS: None IMPRESSION: Status post cholecystectomy. Dilated common and intrahepatic biliary radicles. No evidence of choledocholithiasis, mass or other pathologic process. Bilateral adnexal cyst left larger than right. Concordant results (preliminary interpretation) provided by [employer]. Procedure Completed: 02:45. Preliminary Report: Interpreted and electronically signed: 03:47. Final Interpretation: 12:13.
[2018-08-25 12:56] LABS: PROTHROMBIN TIME 69.1 Seconds (9.8-13.1)
[2018-08-25 13:08] LABS: INR 6.1
[2018-08-25] MEDS: Lidocaine 5% Patch TD SCH (13:11)
[2018-08-25 13:17] LABS: ALB/GLOB RATIO 1.2 (1.0-2.1); ALBUMIN 4.5 g/dL (3.5-5.0); ALT/SGPT 1351 U/L (9-52); AST/SGOT 786 U/L (14-36); BLOOD UREA NITROGEN 9 mg/dl (7-17); CALCIUM 8.7 mg/dL (8.4-10.2); GFR NON-AFRICAN AMERICAN > 60
[2018-08-25 16:47] LABS: HEPATITIS B SURFACE AG Negative (NEGATIVE)
[2018-08-25 16:52] LABS: HEPATITIS A IGM NEGATIVE (NEGATIVE); HEPATITIS B CORE AB NEGATIVE (NEGATIVE)
[2018-08-25 17:04] LABS: HEPATITIS C ANTIBODY NEGATIVE (NEGATIVE)
[2018-08-25 20:47] LABS: BARBITURATES, UR NEGATIVE (NEGATIVE); BENZODIAZEPINES, UR NEGATIVE (NEGATIVE); OPIATES, UR POSITIVE (NEGATIVE); PHENCYCLIDINE, UR NEGATIVE (NEGATIVE)
[2018-08-26] MEDS: Dextrose 5%/0.9% NS 1,000 ML IV SCH (03:22)
[2018-08-26 06:56] LABS: HEMOGLOBIN 10.4 g/dL (12.0-16.0); MEAN CORPUSCULAR HEMOGLOBIN 28.1 pg (27.0-31.0); MEAN CORPUSCULAR HGB CONC 33.5 g/dL (33.0-37.0); RBC 3.71 Mil/uL (3.80-5.20); RED CELL DISTRIBUTION WIDTH 14.8 % (11.5-14.5)
[2018-08-26 07:05] LABS: ALB/GLOB RATIO 1.1 (1.0-2.1); ALBUMIN 3.3 g/dL (3.5-5.0); ALT/SGPT 815 U/L (9-52); AST/SGOT 336 U/L (14-36); BLOOD UREA NITROGEN 7 mg/dl (7-17); GFR NON-AFRICAN AMERICAN > 60
--- NOTE | 2018-08-26 07:10 | CP.PCM.PN ---
<Jose Mclean - Last Filed: 08/26/18 07:56> Subjective - Date & Time of Evaluation Date of Evaluation: 08/26/18 Time of Evaluation: 07:08 - Subjective Subjective: Surgery Note for Dr. Ortega Patient seen and examined at bedside. No acute event overnight. Patient states pain has improved a bit and is controlled. Denies fever/chills or nausea/vomiting. Patient remains NPO but may have CLD today. No other complaints at this time. Objective - Vital Signs/Intake and Output Vital Signs (last 24 hours): Temp Pulse Resp BP Pulse Ox 97.9 F 80 18 105/65 98 08/25/18 23:39 08/25/18 23:39 08/25/18 23:39 08/25/18 23:39 08/26/18 03:45 Intake and Output: 08/26/18 08/26/18 06:59 18:59 Intake Total 1500 Balance 1500 - Medications Medications: Current Medications Dextrose/Sodium Chloride (Dextrose 5%/0.9% Ns 1000 Ml) 1,000 mls @ 125 mls/hr IV .Q8H RADHA Stop: 08/26/18 10:56 Last Admin: 08/26/18 03:22 Dose: 125 mls/hr Lidocaine (Lidoderm) 1 ea TD DAILY [facility] Last Admin: 08/25/18 13:11 Dose: 1 ea Metoprolol Succinate (Toprol Xl) 50 mg PO DAILY [facility] Morphine Sulfate (Morphine) 2 mg IVP Q4 PRN PRN Reason: Pain, severe (8-10) Last Admin: 08/25/18 17:28 Dose: 2 mg Morphine Sulfate (Morphine) 1 mg IVP Q6 PRN PRN Reason: Pain, moderate (4-7) Ondansetron HCl (Zofran Inj) 4 mg IVP Q6 PRN PRN Reason: Nausea/Vomiting Last Admin: 08/25/18 13:07 Dose: 4 mg - Labs Labs: 08/26/18 05:10 08/26/18 05:10 PT 69.1 Seconds (9.8-13.1) H* 08/25/18 11:40 INR 6.1 08/25/18 11:40 APTT 56.4 Seconds (25.6-37.1) H 08/25/18 07:40 - Additional Findings Additional findings: - Constitutional Appears: Non-toxic, No Acute Distress - Head Exam Head Exam: ATRAUMATIC, NORMOCEPHALIC - Eye Exam Eye Exam: EOMI Pupil Exam: PERRL - ENT Exam ENT Exam: Mucous Membranes Moist - Respiratory Exam Respiratory Exam: NORMAL BREATHING PATTERN - Cardiovascular Exam Cardiovascular Exam: REGULAR RHYTHM - GI/Abdominal Exam GI & Abdominal Exam: Normal Bowel Sounds, Soft, Tenderness (RUQ/epigastrium). absent: Distended, Firm, Guarding, Hernia, Mass, Rebound, Rigid - Extremities Exam Extremities exam: Positive for: normal capillary refill, pedal pulses present - Back Exam Back exam: absent: CVA tenderness (L), CVA tenderness (R) - Neurological Exam Neurological exam: Alert, CN II-XII Intact, Oriented x3 - Psychiatric Exam Psychiatric exam: Normal Affect, Normal Mood - Skin Skin Exam: Dry, Intact, Warm Assessment and Plan - Assessment and Plan (Free Text) Assessment: 42F s/p laparoscopic cholecystectomy in 2000 now presents with abd pain and dilated CBD on imaging Plan: -CLD -IVF -analgesics/Anti-metics PRN -Monitor LFTs -MRCP: CBD 17 mm with 6 mm filling defect distally. Intrahepatic dilation. (see full report) -f/u GI recommendations -Discussed with Dr. Collins PGY2 <Rusty Schneider - Last Filed: 08/26/18 12:16> Objective - Vital Signs/Intake and Output Vital Signs (last 24 hours): Temp Pulse Resp BP Pulse Ox 99.1 F 87 18 115/74 94 L 08/26/18 08:25 08/26/18 09:03 08/26/18 08:25 08/26/18 09:03 08/26/18 08:25 Intake and Output: 08/26/18 08/26/18 06:59 18:59 Intake Total 1500 Balance 1500 - Medications Medications: Current Medications Lidocaine (Lidoderm) 1 ea TD DAILY [facility] Last Admin: 08/26/18 09:04 Dose: 1 ea Metoprolol Succinate (Toprol Xl) 50 mg PO DAILY [facility] Last Admin: 08/26/18 09:03 Dose: 50 mg Morphine Sulfate (Morphine) 2 mg IVP Q4 PRN PRN Reason: Pain, severe (8-10) Last Admin: 08/25/18 17:28 Dose: 2 mg Morphine Sulfate (Morphine) 1 mg IVP Q6 PRN PRN Reason: Pain, moderate (4-7) Last Admin: 08/26/18 10:48 Dose: 1 mg Ondansetron HCl (Zofran Inj) 4 mg IVP Q6 PRN PRN Reason: Nausea/Vomiting Last Admin: 08/25/18 13:07 Dose: 4 mg Pantoprazole Sodium (Protonix Inj) 40 mg IVP DAILY [facility] Last Admin: 08/26/18 09:04 Dose: 40 mg - Labs Labs: 08/26/18 05:10 08/26/18 05:10 PT 83.2 Seconds (9.8-13.1) H* 08/26/18 09:29 INR 7.3 08/26/18 09:29 APTT 56.4 Seconds (25.6-37.1) H 08/25/18 07:40 Assessment and Plan - Assessment and Plan (Free Text) Assessment: All medical record entries made by the resident were at my direction. I have reviewed the chart and agree that the record accurately reflects my personal per formance of the history, physical exam, and medical decision making.
--- NOTE | 2018-08-26 08:25 | CP.PCM.PN ---
Subjective - Date & Time of Evaluation Date of Evaluation: 08/26/18 Time of Evaluation: 12:42 - Subjective Subjective: No acute overnight events. Patient feeling a bit better, abdominal and back pain is less. Tolerated clear liquids. No fevers, chills. Objective - Vital Signs/Intake and Output Vital Signs (last 24 hours): Temp Pulse Resp BP Pulse Ox 97.9 F 80 18 105/65 98 08/25/18 23:39 08/25/18 23:39 08/25/18 23:39 08/25/18 23:39 08/26/18 03:45 Intake and Output: 08/26/18 08/26/18 06:59 18:59 Intake Total 1500 Balance 1500 - Medications Medications: Current Medications Dextrose/Sodium Chloride (Dextrose 5%/0.9% Ns 1000 Ml) 1,000 mls @ 125 mls/hr IV .Q8H [facility] Stop: 08/26/18 10:56 Last Admin: 08/26/18 03:22 Dose: 125 mls/hr Lidocaine (Lidoderm) 1 ea TD DAILY [facility] Last Admin: 08/25/18 13:11 Dose: 1 ea Metoprolol Succinate (Toprol Xl) 50 mg PO DAILY [facility] Morphine Sulfate (Morphine) 2 mg IVP Q4 PRN PRN Reason: Pain, severe (8-10) Last Admin: 08/25/18 17:28 Dose: 2 mg Morphine Sulfate (Morphine) 1 mg IVP Q6 PRN PRN Reason: Pain, moderate (4-7) Ondansetron HCl (Zofran Inj) 4 mg IVP Q6 PRN PRN Reason: Nausea/Vomiting Last Admin: 08/25/18 13:07 Dose: 4 mg - Labs Labs: 08/26/18 05:10 08/26/18 05:10 PT 69.1 Seconds (9.8-13.1) H* 08/25/18 11:40 INR 6.1 08/25/18 11:40 APTT 56.4 Seconds (25.6-37.1) H 08/25/18 07:40 - Constitutional Appears: Well, Non-toxic - Head Exam Head Exam: ATRAUMATIC, NORMAL INSPECTION, NORMOCEPHALIC - Eye Exam Eye Exam: Scleral icterus (mild) - ENT Exam ENT Exam: Mucous Membranes Moist - Respiratory Exam Respiratory Exam: Clear to Ausculation Bilateral, NORMAL BREATHING PATTERN - Cardiovascular Exam Cardiovascular Exam: REGULAR RHYTHM, +S1, +S2 - GI/Abdominal Exam GI & Abdominal Exam: Soft. absent: Distended, Guarding, Tenderness - Extremities Exam Extremities Exam: Normal Inspection. absent: Pedal Edema - Back Exam Back Exam: NORMAL INSPECTION. absent: paraspinal tenderness - Neurological Exam Neurological Exam: Alert, Awake, CN II-XII Intact - Psychiatric Exam Psychiatric exam: Normal Affect, Normal Mood - Skin Skin Exam: Dry, Intact Assessment and Plan - Assessment and Plan (Free Text) Assessment: 42 YO Female with PMHx of cardiac valve repair (x2) is admitted for hepatitis, likely secondary to calculi in biliary tree with biliary tree dilatation with supratherapeutic INR. Hepatic steatosis noted on MRI. Viral hepatitis ruled out, acetominophen level <10. Liver enzymes trending down, patient is afebrile and hemodynamically stable. Tolerating clear liquid diet. Hepatitis thought to be secondary to CBD obstruction with calculi -acute vs chronic, patient denies hx of elevated LFTs in the past, however hepatic steatosis was noted on MRI -viral etiology -ruled out. -toxic - no etoh/ high dose tylenol use - acetominophen level <10 -Liver function trending down, alk phos treding down -CT abd and pelvis sig for dilated common bile duct and intrahepatic biliary system, ovarian cysts -MRCP:Dilated common bile duct measures approximately 17 mm in diameter. Small filling defect present measuring approximately 6 mm, possibly small calculus. Distal common bile duct demonstrates abrupt taper; primary or secondary stricture not excluded. Intrahepatic biliary ductal dilatation. Recommend fur ther evaluation with ERCP if indicated. Hepatic steatosis. -f/u CMP in AM Supratherapeutic INR -patient is on coumadin at home, however level continues to rise despite holding coumadin -monitor PT/INR -Vitamin K given 08/26 Anemia --stable, could be dilutional --normocytic, monitor cbc Cardiac valvular disease -chronic -s/p repair with metallic mitral valve -c/w BB, hold coumadin DVT prophylaxis -on warfarin at home- on hold due to elevated INR -hold lovenox/heparin due to elevated PT -SCDs for now -ambulation Hyperkalemia resolved
[2018-08-26] MEDS: Metoprolol Succinate 50 mg XL Tab PO SCH (09:03)
[2018-08-26] MEDS: Lidocaine 5% Patch TD SCH (09:04)
--- NOTE | 2018-08-26 09:51 | CARD ---
APPROVED REPORT Date of service: 08/25/2018 EKG Measurement Heart [id number] <Conclusion> Normal sinus rhythm Normal Electrocardiogram
[2018-08-26 11:36] LABS: INR 7.3; PROTHROMBIN TIME 83.2 Seconds (9.8-13.1)
[2018-08-26 19:26] LABS: INR 4.7; PROTHROMBIN TIME 53.6 Seconds (9.8-13.1)
[2018-08-26] MEDS: Potassium Ch 20mEq in D5-1/2NS 1,000 ML IV SCH (21:47)
[2018-08-27 06:50] LABS: HEMOGLOBIN 10.4 g/dL (12.0-16.0); MEAN CELL VOLUME 84.4 fl (81.0-99.0); MEAN CORPUSCULAR HEMOGLOBIN 28.2 pg (27.0-31.0); MEAN CORPUSCULAR HGB CONC 33.4 g/dL (33.0-37.0); RBC 3.67 Mil/uL (3.80-5.20); RED CELL DISTRIBUTION WIDTH 14.5 % (11.5-14.5); WHITE BLOOD COUNT 6.1 K/uL (4.8-10.8)
[2018-08-27 06:57] LABS: ALBUMIN 3.3 g/dL (3.5-5.0); ALT/SGPT 601 U/L (9-52); AST/SGOT 177 U/L (14-36); BLOOD UREA NITROGEN 5 mg/dl (7-17); CALCIUM 8.1 mg/dL (8.4-10.2); GFR NON-AFRICAN AMERICAN > 60
--- NOTE | 2018-08-27 07:56 | CP.PCM.PN ---
<Bret Dorado - Last Filed: 08/27/18 07:57> Subjective - Date & Time of Evaluation Date of Evaluation: 08/27/18 Time of Evaluation: 07:54 - Subjective Subjective: Surgery Progress Note for Dr. Ortega 42F seen and evaluated at bedside this morning. No acute events overnight. No complaints this morning. Patient states abd pain has improved. No nausea or vomiting. Had BM yesterday. Denies f/c, diarrhea, SOB, CP, or urinary symptoms. Objective - Vital Signs/Intake and Output Vital Signs (last 24 hours): Temp Pulse Resp BP Pulse Ox 98.4 F 73 19 134/83 97 08/27/18 07:46 08/27/18 07:46 08/27/18 07:46 08/27/18 07:46 08/27/18 07:46 Intake and Output: 08/27/18 08/27/18 06:59 18:59 Intake Total 1000 Balance 1000 - Medications Medications: Current Medications Potassium Chloride/Dextrose/Sod Cl (Potassium Chl 20 Meq In D5-1/2ns) 1,000 mls @ 100 mls/hr IV .Q10H [facility] Stop: 08/27/18 20:47 Last Admin: 08/26/18 21:47 Dose: 100 mls/hr Lidocaine (Lidoderm) 1 ea TD DAILY [facility] Last Admin: 08/26/18 09:04 Dose: 1 ea Metoprolol Succinate (Toprol Xl) 50 mg PO DAILY [facility] Last Admin: 08/26/18 09:03 Dose: 50 mg Morphine Sulfate (Morphine) 2 mg IVP Q4 PRN PRN Reason: Pain, severe (8-10) Last Admin: 08/25/18 17:28 Dose: 2 mg Morphine Sulfate (Morphine) 1 mg IVP Q6 PRN PRN Reason: Pain, moderate (4-7) Last Admin: 08/26/18 10:48 Dose: 1 mg Ondansetron HCl (Zofran Inj) 4 mg IVP Q6 PRN PRN Reason: Nausea/Vomiting Last Admin: 08/25/18 13:07 Dose: 4 mg Pantoprazole Sodium (Protonix Inj) 40 mg IVP DAILY [facility] Last Admin: 08/26/18 09:04 Dose: 40 mg - Labs Labs: 08/27/18 05:35 08/27/18 05:35 PT 53.6 Seconds (9.8-13.1) H* 08/26/18 18:07 INR 4.7 08/26/18 18:07 APTT 56.4 Seconds (25.6-37.1) H 08/25/18 07:40 - Constitutional Appears: Well, Non-toxic, No Acute Distress - Head Exam Head Exam: ATRAUMATIC, NORMAL INSPECTION, NORMOCEPHALIC - Eye Exam Eye Exam: EOMI - ENT Exam ENT Exam: Mucous Membranes Moist - Respiratory Exam Respiratory Exam: Clear to Ausculation Bilateral, NORMAL BREATHING PATTERN. absent: Wheezes, Respiratory Distress - Cardiovascular Exam Cardiovascular Exam: REGULAR RHYTHM, +S1, +S2. absent: Murmur - GI/Abdominal Exam GI & Abdominal Exam: Soft, Normal Bowel Sounds. absent: Distended, Guarding, Tenderness, Rebound - Neurological Exam Neurological Exam: Alert, Awake, Oriented x3 - Psychiatric Exam Psychiatric exam: Normal Affect, Normal Mood - Skin Additional comments: open cholecystectomy scar noted Assessment and Plan - Assessment and Plan (Free Text) Assessment: 42F w/ choledocholithiasis, pending ERCP once INR therapeutic Plan: NPO FU morning INR Pending ERCP FU further GI recommendations Further recs per Dr. Johnson PGY1 <Rusty Schneider - Last Filed: 09/02/18 04:06> Objective - Vital Signs/Intake and Output Vital Signs (last 24 hours): Temp Pulse Resp BP Pulse Ox 97.9 F 67 20 115/80 99 08/31/18 16:19 08/31/18 16:19 08/31/18 16:19 08/31/18 16:19 08/31/18 16:19 - Labs Labs: 08/31/18 05:40 08/31/18 05:40 PT 12.7 Seconds (9.8-13.1) 08/30/18 08:25 INR 1.1 08/30/18 08:25 APTT 89.3 Seconds (25.6-37.1) H 08/31/18 11:55 Assessment and Plan - Assessment and Plan (Free Text) Plan: All medical record entries made by the resident were at my direction. I have reviewed the chart and agree that the record accurately reflects my personal performance of the history, physical exam, and medical decision making
[2018-08-27] MEDS ORDERED: Potassium Chloride 20 mEq ER Tab PO ONE (09:30)
[2018-08-27] MEDS: Lidocaine 5% Patch TD SCH (09:50)
[2018-08-27] MEDS: Metoprolol Succinate 50 mg XL Tab PO SCH (09:51)
[2018-08-27] MEDS: Potassium Ch 20mEq in D5-1/2NS 1,000 ML IV SCH ×2 (09:52→18:27)
[2018-08-27 10:27] LABS: INR 1.6; PROTHROMBIN TIME 18.7 Seconds (9.8-13.1)
--- NOTE | 2018-08-27 12:36 | CP.PCM.PN ---
Subjective - Date & Time of Evaluation Date of Evaluation: 08/27/18 Time of Evaluation: 12:32 - Subjective Subjective: Patient seen and examined bedside with Dr. Sood. Some right sided back pain, no nausea/vomiting. NPO - will start clear liquids. No other complaints. INR pending- f/u LFTs trending down Objective - Vital Signs/Intake and Output Vital Signs (last 24 hours): Temp Pulse Resp BP Pulse Ox 98.4 F 73 19 134/83 97 08/27/18 09:00 08/27/18 09:51 08/27/18 09:00 08/27/18 09:51 08/27/18 09:00 Intake and Output: 08/27/18 08/27/18 06:59 18:59 Intake Total 1000 Balance 1000 - Medications Medications: Current Medications Potassium Chloride/Dextrose/Sod Cl (Potassium Chl 20 Meq In D5-1/2ns) 1,000 mls @ 100 mls/hr IV .Q10H [facility] Stop: 08/27/18 20:47 Last Admin: 08/27/18 09:52 Dose: 100 mls/hr Lidocaine (Lidoderm) 1 ea TD DAILY [facility] Last Admin: 08/27/18 09:50 Dose: 1 ea Metoprolol Succinate (Toprol Xl) 50 mg PO DAILY [facility] Last Admin: 08/27/18 09:51 Dose: 50 mg Morphine Sulfate (Morphine) 2 mg IVP Q4 PRN PRN Reason: Pain, severe (8-10) Last Admin: 08/25/18 17:28 Dose: 2 mg Morphine Sulfate (Morphine) 1 mg IVP Q6 PRN PRN Reason: Pain, moderate (4-7) Last Admin: 08/27/18 10:09 Dose: 1 mg Ondansetron HCl (Zofran Inj) 4 mg IVP Q6 PRN PRN Reason: Nausea/Vomiting Last Admin: 08/25/18 13:07 Dose: 4 mg Pantoprazole Sodium (Protonix Inj) 40 mg IVP DAILY [facility] Last Admin: 08/27/18 09:51 Dose: 40 mg - Labs Labs: 08/27/18 05:35 08/27/18 05:35 PT 18.7 Seconds (9.8-13.1) H D 08/27/18 09:45 INR 1.6 05/20/19 09:45 APTT 56.4 Seconds (25.6-37.1) H 08/25/18 07:40 - Constitutional Appears: Non-toxic, No Acute Distress - Head Exam Head Exam: ATRAUMATIC, NORMAL INSPECTION, NORMOCEPHALIC - ENT Exam ENT Exam: Mucous Membranes Moist - Respiratory Exam Respiratory Exam: Clear to Ausculation Bilateral, NORMAL BREATHING PATTERN - Cardiovascular Exam Cardiovascular Exam: Clicks, REGULAR RHYTHM, +S1, +S2 - GI/Abdominal Exam GI & Abdominal Exam: Soft, Normal Bowel Sounds. absent: Distended, Guarding, Tenderness - Neurological Exam Neurological Exam: Alert, Awake, CN II-XII Intact - Skin Skin Exam: Dry, Intact Assessment and Plan - Assessment and Plan (Free Text) Assessment: 42 YO Female with PMHx of cardiac valve repair (x2) is admitted for hepatitis, likely secondary to calculi in biliary tree with biliary tree dilatation with supratherapeutic INR now subtherapeutic. Hepatic steatosis noted on MRI. Viral hepatitis ruled out, acetominophen level <10. Liver enzymes trending down, patient is afebrile and hemodynamically stable. Tolerating clear liquid diet. Obtain cardiac clearance for ERCP. Hepatitis thought to be secondary to CBD obstruction with calculi -acute vs chronic, patient denies hx of elevated LFTs in the past, however hepatic steatosis was noted on MRI -viral etiology -ruled out. -toxic - no etoh/ high dose tylenol use - acetominophen level <10 -Liver function trending down, alk phos treding down -CT abd and pelvis sig for dilated common bile duct and intrahepatic biliary system, ovarian cysts -MRCP:Dilated common bile duct measures approximately 17 mm in diameter. Small filling defect present measuring approximately 6 mm, possibly small calculus. Distal common bile duct demonstrates abrupt taper; primary or secondary stricture not excluded. Intrahepatic biliary ductal dilatation. Hepatic steatosis. -cardiac clearance for possible ERCP - will d/w Dr. Sherman -Case d/w Dr. Ryan Supratherapeutic INR now subtherapeutic -patient is on coumadin at home, however level continues to rise despite holding coumadin -monitor PT/INR -Vitamin K given 08/26 and 08/27 repeat inr pending Anemia --stable, could be dilutional --normocytic, monitor cbc Cardiac valvular disease -chronic -s/p repair with metallic mitral valve -c/w BB, hold coumadin DVT prophylaxis -on warfarin at home- on hold due to supretherapeutic INR -hold lovenox/heparin due to elevated PT -SCDs for now -ambulation Hypokalemia -repleted Rafael PGY3
[2018-08-27] MEDS ORDERED: Heparin 25,000units in D5W 25,000 UNITS/250 ML BAG IV SCH ×3 (15:45→18:15)
[2018-08-28 02:12] LABS: HEMOGLOBIN 10.7 g/dL (12.0-16.0); MEAN CELL VOLUME 84.4 fl (81.0-99.0); MEAN CORPUSCULAR HEMOGLOBIN 28.3 pg (27.0-31.0); MEAN CORPUSCULAR HGB CONC 33.5 g/dL (33.0-37.0); RBC 3.79 Mil/uL (3.80-5.20); WHITE BLOOD COUNT 6.9 K/uL (4.8-10.8)
[2018-08-28 02:29] LABS: ALBUMIN 3.5 g/dL (3.5-5.0); ALT/SGPT 508 U/L (9-52); AST/SGOT 120 U/L (14-36); BLOOD UREA NITROGEN 5 mg/dl (7-17); CALCIUM 8.3 mg/dL (8.4-10.2); GFR NON-AFRICAN AMERICAN > 60
[2018-08-28] MEDS ORDERED: Heparin 25,000units in D5W 25,000 UNITS/250 ML BAG IV SCH ×2 (04:30→22:30)
[2018-08-28] MEDS ORDERED: Magnesium Sulfate 2 gm/50 ml 2 GM/50 ML BAG IVPB ONE (08:03)
--- NOTE | 2018-08-28 08:10 | CP.PCM.PN ---
<Bret Dorado - Last Filed: 08/28/18 08:54> Subjective - Date & Time of Evaluation Date of Evaluation: 08/28/18 Time of Evaluation: 08:08 - Subjective Subjective: Surgery Progress Note for Dr. Ortega 42F seen and evaluated at bedside this morning. No acute events overnight. No complaints this morning. States abd pain has improved. Tolerated CLD. Passing flatus, having BM. Denies f/c, n/v/d, SOB, CP, or urinary symptoms Objective - Vital Signs/Intake and Output Vital Signs (last 24 hours): Temp Pulse Resp BP Pulse Ox 98.5 F 65 20 131/78 95 08/28/18 08:02 08/28/18 08:02 08/28/18 08:02 08/28/18 08:02 08/28/18 08:02 - Medications Medications: Current Medications Heparin Sodium/Dextrose (Heparin 25,000 Units/250ml In D5w) 25,000 units in 250 mls @ 13 mls/hr IV .[id number] [facility]; Protocol Last Admin: 08/27/18 20:21 Dose: 13 mls/hr Heparin Sodium/Dextrose (Heparin 25,000 Units/250ml In D5w) 25,000 units in 250 mls @ 11 mls/hr IV .[id number] [facility]; Protocol Last Admin: 08/28/18 04:41 Dose: 11 mls/hr Magnesium Sulfate (Magnesium Sulfate 2 Gm/50 Ml Water) 2 gm in 50 mls @ 50 mls/hr IVPB ONCE ONE Stop: 08/28/18 09:02 Lidocaine (Lidoderm) 1 ea TD DAILY [facility] Last Admin: 08/27/18 09:50 Dose: 1 ea Metoprolol Succinate (Toprol Xl) 50 mg PO DAILY [facility] Last Admin: 08/27/18 09:51 Dose: 50 mg Morphine Sulfate (Morphine) 2 mg IVP Q4 PRN PRN Reason: Pain, severe (8-10) Last Admin: 08/25/18 17:28 Dose: 2 mg Morphine Sulfate (Morphine) 1 mg IVP Q6 PRN PRN Reason: Pain, moderate (4-7) Last Admin: 08/27/18 20:07 Dose: 1 mg Ondansetron HCl (Zofran Inj) 4 mg IVP Q6 PRN PRN Reason: Nausea/Vomiting Last Admin: 08/25/18 13:07 Dose: 4 mg Pantoprazole Sodium (Protonix Inj) 40 mg IVP DAILY [facility] Last Admin: 08/27/18 09:51 Dose: 40 mg - Labs Labs: 08/28/18 02:00 08/28/18 02:00 PT 18.7 Seconds (9.8-13.1) H D 08/27/18 09:45 INR 1.6 08/27/18 09:45 APTT 152.1 Seconds (25.6-37.1) H 08/28/18 02:40 - Constitutional Appears: Well, Non-toxic, No Acute Distress - Head Exam Head Exam: ATRAUMATIC, NORMAL INSPECTION, NORMOCEPHALIC - Eye Exam Eye Exam: EOMI - ENT Exam ENT Exam: Mucous Membranes Moist - Respiratory Exam Respiratory Exam: Clear to Ausculation Bilateral, NORMAL BREATHING PATTERN - Cardiovascular Exam Cardiovascular Exam: REGULAR RHYTHM, +S1, +S2. absent: Murmur - GI/Abdominal Exam GI & Abdominal Exam: Soft, Normal Bowel Sounds. absent: Distended, Tenderness - Neurological Exam Neurological Exam: Alert, Awake, Oriented x3 - Psychiatric Exam Psychiatric exam: Normal Affect, Normal Mood - Skin Skin Exam: Dry, Intact, Normal Color, Warm Assessment and Plan - Assessment and Plan (Free Text) Assessment: 42F w/ suspected choledocholithiasis Plan: Pending ERCP per GI LFTs downtrending Continue to monitor liver enzymes Further recs per Dr. Johnson PGY1 <Rusty Schneider - Last Filed: 09/02/18 04:03> Objective - Vital Signs/Intake and Output Vital Signs (last 24 hours): Temp Pulse Resp BP Pulse Ox 97.9 F 67 20 115/80 99 08/31/18 16:19 08/31/18 16:19 08/31/18 16:19 08/31/18 16:19 08/31/18 16:19 - Labs Labs: 08/31/18 05:40 08/31/18 05:40 PT 12.7 Seconds (9.8-13.1) 08/30/18 08:25 INR 1.1 08/30/18 08:25 APTT 89.3 Seconds (25.6-37.1) H 08/31/18 11:55 Assessment and Plan - Assessment and Plan (Free Text) Plan: All medical record entries made by the resident were at my direction. I have reviewed the chart and agree that the record accurately reflects my personal performance of the history, physical exam, and medical decision making await ERCP
[2018-08-28] MEDS: Lidocaine 5% Patch TD SCH (08:43)
[2018-08-28] MEDS: Metoprolol Succinate 50 mg XL Tab PO SCH (08:44)
[2018-08-28 09:37] LABS: INR 1.3; PROTHROMBIN TIME 14.2 Seconds (9.8-13.1)
[2018-08-28 09:40] LABS: PARTIAL THROMBOPLASTIN TIME 91.9 Seconds (25.6-37.1)
[2018-08-28] MEDS: Heparin 25,000units in D5W 25,000 UNITS/250 ML BAG IV SCH (10:17)
--- NOTE | 2018-08-28 11:13 | CP.PCM.PN ---
<Kaity Parker - Last Filed: 08/28/18 16:56> Subjective - Date & Time of Evaluation Date of Evaluation: 08/28/18 Time of Evaluation: 11:12 - Subjective Subjective: No acute overnight events. On heparin drip. Tolerating clear liquid diet. No abd pain today. No chest pain, shortness of breath, nausea, vomiting. 1 BM overnight Objective - Vital Signs/Intake and Output Vital Signs (last 24 hours): Temp Pulse Resp BP Pulse Ox 98.5 F 65 20 138/65 95 08/28/18 08:02 08/28/18 08:44 08/28/18 08:02 08/28/18 08:44 08/28/18 08:02 - Medications Medications: Current Medications Heparin Sodium/Dextrose (Heparin 25,000 Units/250ml In D5w) 25,000 units in 250 mls @ 9.5 mls/hr IV .Q24H [facility]; Protocol Last Admin: 08/28/18 10:17 Dose: 9.5 mls/hr Lidocaine (Lidoderm) 1 ea TD DAILY [facility] Last Admin: 08/28/18 08:43 Dose: 1 ea Metoprolol Succinate (Toprol Xl) 50 mg PO DAILY [facility] Last Admin: 08/28/18 08:44 Dose: 50 mg Morphine Sulfate (Morphine) 2 mg IVP Q4 PRN PRN Reason: Pain, severe (8-10) Last Admin: 08/25/18 17:28 Dose: 2 mg Morphine Sulfate (Morphine) 1 mg IVP Q6 PRN PRN Reason: Pain, moderate (4-7) Last Admin: 08/27/18 20:07 Dose: 1 mg Ondansetron HCl (Zofran Inj) 4 mg IVP Q6 PRN PRN Reason: Nausea/Vomiting Last Admin: 08/25/18 13:07 Dose: 4 mg Pantoprazole Sodium (Protonix Inj) 40 mg IVP DAILY [facility] Last Admin: 08/28/18 08:44 Dose: 40 mg - Labs Labs: 08/28/18 02:00 08/28/18 02:00 PT 14.2 Seconds (9.8-13.1) H 08/28/18 09:20 INR 1.3 08/28/18 09:20 APTT 91.9 Seconds (25.6-37.1) H 08/28/18 09:20 - Constitutional Appears: Non-toxic - Head Exam Head Exam: ATRAUMATIC, NORMAL INSPECTION, NORMOCEPHALIC - ENT Exam ENT Exam: Mucous Membranes Moist, Normal Exam - Respiratory Exam Respiratory Exam: Clear to Ausculation Bilateral, NORMAL BREATHING PATTERN - Cardiovascular Exam Cardiovascular Exam: Clicks, REGULAR RHYTHM, +S1, +S2 - GI/Abdominal Exam GI & Abdominal Exam: Soft. absent: Distended, Tenderness - Extremities Exam Extremities Exam: Full ROM, Normal Capillary Refill, Normal Inspection. absent: Joint Swelling, Pedal Edema - Neurological Exam Neurological Exam: Alert, Awake, CN II-XII Intact, Normal Gait, Oriented x3 Assessment and Plan - Assessment and Plan (Free Text) Assessment: 42 YO Female with PMHx of cardiac valve repair (x2) is admitted for hepatitis, likely secondary to calculi in biliary tree with biliary tree dilatation with s upratherapeutic INR now subtherapeutic. Viral hepatitis ruled out, acetominophen level <10. CT abd and pelvis sig for dilated common bile duct and intrahepatic biliary system, ovarian cysts. MRCP:Dilated common bile duct measures approximately 17 mm in diameter. Small filling defect present measuring approximately 6 mm, possibly small calculus. Distal common bile duct demonstrates abrupt taper; primary or secondary stricture not excluded. Intrahepatic biliary ductal dilatation. Hepatic steatosis. Today: Liver enzymes trending down, patient is afebrile and hemodynamically stable. C/w heparin Drip due to subtherapeutic INR. Tolerating clear liquid diet will advance to low fat diet. Cleared by Dr. Sherman for ERCP. Hepatitis thought to be secondary to CBD obstruction with calculi -LFTs improving -for possible ERCP -start low fat diet -Case d/w Dr. Ryan Supratherapeutic INR now subtherapeutic -patient is on coumadin at home, however level continues to rise despite holding coumadin -monitor PT/INR -Vitamin K given 08/26 and 08/27 repeat inr pending Anemia --stable, could be dilutional --normocytic, monitor cbc Cardiac valvular disease -chronic -s/p repair with metallic mitral valve -c/w BB, hold coumadin DVT prophylaxis -on warfarin at home- on hold due to supretherapeutic INR -heparin drip -SCDs for now -ambulation Hypokalemia -resolved Rafael PGY3 <Nancy Shafer Arianna - Last Filed: 08/28/18 17:39> Objective - Vital Signs/Intake and Output Vital Signs (last 24 hours): Temp Pulse Resp BP Pulse Ox 97.9 F 59 L 18 126/79 97 08/28/18 15:49 08/28/18 15:49 08/28/18 15:49 08/28/18 15:49 08/28/18 15:49 Intake and Output: 08/28/18 08/28/18 06:59 18:59 Intake Total 100 Balance 100 - Medications Medications: Current Medications Heparin Sodium/Dextrose (Heparin 25,000 Units/250ml In D5w) 25,000 units in 250 mls @ 9.5 mls/hr IV .Q24H [facility]; Protocol Last Admin: 08/28/18 10:17 Dose: 9.5 mls/hr Lidocaine (Lidoderm) 1 ea TD DAILY [facility] Last Admin: 08/28/18 08:43 Dose: 1 ea Metoprolol Succinate (Toprol Xl) 50 mg PO DAILY [facility] Last Admin: 08/28/18 08:44 Dose: 50 mg Morphine Sulfate (Morphine) 2 mg IVP Q4 PRN PRN Reason: Pain, severe (8-10) Last Admin: 08/25/18 17:28 Dose: 2 mg Morphine Sulfate (Morphine) 1 mg IVP Q6 PRN PRN Reason: Pain, moderate (4-7) Last Admin: 08/27/18 20:07 Dose: 1 mg Ondansetron HCl (Zofran Inj) 4 mg IVP Q6 PRN PRN Reason: Nausea/Vomiting Last Admin: 08/25/18 13:07 Dose: 4 mg Pantoprazole Sodium (Protonix Inj) 40 mg IVP DAILY [facility] Last Admin: 08/28/18 08:44 Dose: 40 mg - Labs Labs: 08/28/18 02:00 08/28/18 02:00 PT 14.2 Seconds (9.8-13.1) H 08/28/18 09:20 INR 1.3 08/28/18 09:20 APTT 70.6 Seconds (25.6-37.1) H 08/28/18 15:30 Attending/Attestation - Attestation I have personally seen and examined this patient.: Yes I have fully participated in the care of the patient.: Yes I have reviewed all pertinent clinical information, including history, physical exam and plan: Yes Notes (Text): 1.Choledocholithiasis and possible CBD stricture 2. Abn LFTs 3. Mechanical Heart Valve on Anticoagulation 4. Supratherapeutic INR 5. HTN 6. Anemia, prob dilutional LFTs and bilirubin trending down Continue pain management no need for antibiotics Plan for ERCP as per GI - Dr Ryan INR now normal after Vit K Coumadin held and started on Heparin drip in preparation for poss Surgical procedure - monitor APTT cont Metoprolol
--- NOTE | 2018-08-29 05:03 | CON ---
DATE: 08/28/2018 REFERRING PHYSICIAN: Reece Sood MD REASON FOR CONSULTATION: Abdominal pain. HISTORY OF PRESENT ILLNESS: This is a pleasant 42-year-old female with a history of on Coumadin who comes in with abdominal pain and discomfort and vomiting, all of which have resolved. The patient is feeling better. MRCP demonstrates small stones. INR is elevated. Currently lying in bed comfortably, in no apparent distress. PAST MEDICAL HISTORY: As above. PAST SURGICAL HISTORY: As above. MEDICATIONS: Reviewed. REVIEW OF SYSTEMS: All other systems have been reviewed and negative apart from the HPI. PHYSICAL EXAMINATION: VITAL SIGNS: Here in the hospital are grossly unremarkable. GENERAL: This is a pleasant, middle aged female, lying in bed comfortably, in no apparent distress. HEENT: Head; normocephalic and atraumatic. Eyes; pupils are equally reactive to light bilaterally. No conjunctival pallor or icterus. NECK: Supple. Normal range of motion. No lymphadenopathy appreciated. LUNGS: Coarse breath sounds bilaterally. HEART: S1 and S2, regular rate and rhythm. No murmurs appreciated. ABDOMEN: Soft, nontender. Bowel sounds present. No rebound. No guarding. RECTAL: Deferred. EXTREMITIES: Pulses felt bilaterally. SKIN: Warm, dry, and intact. NEUROLOGICAL: A and O x3. LABORATORY DATA: Labs and radiology have been reviewed. WBC is 6.1, hemoglobin 10.4, hematocrit 31. INR was 4.7, now down to 1.6. LFTs are as high as alk phos 231. MRCP demonstrates small stones. ASSESSMENT: This is a 42-year-old female with kidney stones. Plan for ERCP once cardiac clearance is obtained and the patient is off Coumadin. Thank you for the consult. Gilbert Ryan MD/ PhD cc: Reece Sood MD
[2018-08-29 07:20] LABS: BASO % 0.7 % (0.0-2.0); EOS # 0.2 K/uL (0.0-0.7); EOS % 3.1 % (0.0-4.0); HEMOGLOBIN 11.4 g/dL (12.0-16.0); LYMPH % 16.9 % (20.0-40.0); MEAN CELL VOLUME 85.1 fl (81.0-99.0); MEAN CORPUSCULAR HEMOGLOBIN 27.7 pg (27.0-31.0); MEAN CORPUSCULAR HGB CONC 32.6 g/dL (33.0-37.0); MEAN PLATELET VOLUME 8.5 fl (7.2-11.7); MONO # 0.4 K/uL (0.0-0.8); MONO % 6.8 % (0.0-10.0); NEUT # 4.3 K/uL (1.8-7.0); NEUT % 72.5 % (50.0-75.0); NRBC % 0.1 % (0.0-0.0); RBC 4.13 Mil/uL (3.80-5.20); RED CELL DISTRIBUTION WIDTH 14.3 % (11.5-14.5)
[2018-08-29 07:35] LABS: ALB/GLOB RATIO 1.1 (1.0-2.1); ALT/SGPT 407 U/L (9-52); AST/SGOT 97 U/L (14-36); BLOOD UREA NITROGEN 11 mg/dl (7-17); CALCIUM 8.5 mg/dL (8.4-10.2); GFR NON-AFRICAN AMERICAN > 60
[2018-08-29] MEDS: Lidocaine 5% Patch TD SCH (08:32)
[2018-08-29] MEDS: Metoprolol Succinate 50 mg XL Tab PO SCH (08:33)
--- NOTE | 2018-08-29 10:09 | CP.PCM.PN ---
<Jose Mclean - Last Filed: 08/29/18 10:41> Subjective - Date & Time of Evaluation Date of Evaluation: 08/29/18 Time of Evaluation: 10:40 - Subjective Subjective: Surgery Progress Note for Dr. Ortega Patient seen and evaluated at bedside. No acute events overnight. No complaints this morning. Tolerating HHD. Passing flatus, having BM. Denies f/c, n/v/d, SOB, CP, or urinary symptoms. Plan for ERCP 08/30. Objective - Vital Signs/Intake and Output Vital Signs (last 24 hours): Temp Pulse Resp BP Pulse Ox 97.6 F 64 18 124/85 98 08/29/18 08:44 08/29/18 08:44 08/29/18 08:44 08/29/18 08:44 08/29/18 08:44 - Medications Medications: Current Medications Heparin Sodium/Dextrose (Heparin 25,000 Units/250ml In D5w) 25,000 units in 250 mls @ 9.5 mls/hr IV .Q24H [facility]; Protocol Last Admin: 08/28/18 10:17 Dose: 9.5 mls/hr Heparin Sodium/Dextrose (Heparin 25,000 Units/250ml In D5w) 25,000 units in 250 mls @ 9.5 mls/hr IV .Q24H [facility]; Protocol Last Admin: 08/28/18 22:59 Dose: 9.5 mls/hr Lidocaine (Lidoderm) 1 ea TD DAILY [facility] Last Admin: 08/29/18 08:32 Dose: 1 ea Metoprolol Succinate (Toprol Xl) 50 mg PO DAILY [facility] Last Admin: 08/29/18 08:33 Dose: 50 mg Morphine Sulfate (Morphine) 2 mg IVP Q4 PRN PRN Reason: Pain, severe (8-10) Last Admin: 08/25/18 17:28 Dose: 2 mg Morphine Sulfate (Morphine) 1 mg IVP Q6 PRN PRN Reason: Pain, moderate (4-7) Last Admin: 08/27/18 20:07 Dose: 1 mg Ondansetron HCl (Zofran Inj) 4 mg IVP Q6 PRN PRN Reason: Nausea/Vomiting Last Admin: 08/25/18 13:07 Dose: 4 mg Pantoprazole Sodium (Protonix Inj) 40 mg IVP DAILY [facility] Last Admin: 08/29/18 08:32 Dose: 40 mg - Labs Labs: 08/29/18 07:00 08/29/18 07:00 PT 14.2 Seconds (9.8-13.1) H 08/28/18 09:20 INR 1.3 08/28/18 09:20 APTT 59.3 Seconds (25.6-37.1) H 08/28/18 21:50 - Additional Findings Additional findings: - Constitutional Appears: Well, Non-toxic, No Acute Distress - Head Exam Head Exam: ATRAUMATIC, NORMAL INSPECTION, NORMOCEPHALIC - Eye Exam Eye Exam: EOMI - ENT Exam ENT Exam: Mucous Membranes Moist - Respiratory Exam Respiratory Exam: Clear to Ausculation Bilateral, NORMAL BREATHING PATTERN - Cardiovascular Exam Cardiovascular Exam: REGULAR RHYTHM, +S1, +S2. absent: Murmur - GI/Abdominal Exam GI & Abdominal Exam: Soft, Normal Bowel Sounds. absent: Distended, Tenderness - Neurological Exam Neurological Exam: Alert, Awake, Oriented x3 - Psychiatric Exam Psychiatric exam: Normal Affect, Normal Mood - Skin Skin Exam: Dry, Intact, Normal Color, Warm Assessment and Plan - Assessment and Plan (Free Text) Assessment: 42F w/ suspected choledocholithiasis Plan: Plan for ERCP 08/30 as per GI LFTs downtrending Continue to monitor liver enzymes NPO past MN Hold heparin drip for procedure Further recs per Dr. Collins PGY2 <Rusty Schneider - Last Filed: 09/02/18 03:53> Objective - Vital Signs/Intake and Output Vital Signs (last 24 hours): Temp Pulse Resp BP Pulse Ox 97.9 F 67 20 115/80 99 08/31/18 16:19 08/31/18 16:19 08/31/18 16:19 08/31/18 16:19 08/31/18 16:19 - Labs Labs: 08/31/18 05:40 08/31/18 05:40 PT 12.7 Seconds (9.8-13.1) 08/30/18 08:25 INR 1.1 08/30/18 08:25 APTT 89.3 Seconds (25.6-37.1) H 08/31/18 11:55 Assessment and Plan - Assessment and Plan (Free Text) Assessment: All medical record entries made by the resident were at my direction. I have reviewed the chart and agree that the record accurately reflects my personal performance of the history, physical exam, and medical decision making Await ERCP results
--- NOTE | 2018-08-29 10:21 | CP.PCM.PN ---
<Kaity Parker - Last Filed: 08/29/18 10:24> Subjective - Date & Time of Evaluation Date of Evaluation: 08/29/18 Time of Evaluation: 10:20 - Subjective Subjective: No acute overnight events. Patient tolerating low fat diet. On heparin drip. For ERCP tomorrow. No complaints. D/c Heparin drip at 7 AM NPO past midnight. Objective - Vital Signs/Intake and Output Vital Signs (last 24 hours): Temp Pulse Resp BP Pulse Ox 97.6 F 64 18 124/85 98 08/29/18 08:44 08/29/18 08:44 08/29/18 08:44 08/29/18 08:44 08/29/18 08:44 - Medications Medications: Current Medications Heparin Sodium/Dextrose (Heparin 25,000 Units/250ml In D5w) 25,000 units in 250 mls @ 9.5 mls/hr IV .Q24H [facility]; Protocol Last Admin: 08/28/18 22:59 Dose: 9.5 mls/hr Lidocaine (Lidoderm) 1 ea TD DAILY [facility] Last Admin: 08/29/18 08:32 Dose: 1 ea Metoprolol Succinate (Toprol Xl) 50 mg PO DAILY [facility] Last Admin: 08/29/18 08:33 Dose: 50 mg Morphine Sulfate (Morphine) 2 mg IVP Q4 PRN PRN Reason: Pain, severe (8-10) Last Admin: 08/25/18 17:28 Dose: 2 mg Morphine Sulfate (Morphine) 1 mg IVP Q6 PRN PRN Reason: Pain, moderate (4-7) Last Admin: 08/27/18 20:07 Dose: 1 mg Ondansetron HCl (Zofran Inj) 4 mg IVP Q6 PRN PRN Reason: Nausea/Vomiting Last Admin: 08/25/18 13:07 Dose: 4 mg Pantoprazole Sodium (Protonix Inj) 40 mg IVP DAILY [facility] Last Admin: 08/29/18 08:32 Dose: 40 mg - Labs Labs: 08/29/18 07:00 08/29/18 07:00 PT 14.2 Seconds (9.8-13.1) H 08/28/18 09:20 INR 1.3 08/28/18 09:20 APTT 59.3 Seconds (25.6-37.1) H 08/28/18 21:50 - Constitutional Appears: Well, Non-toxic - Head Exam Head Exam: ATRAUMATIC, NORMAL INSPECTION, NORMOCEPHALIC - Eye Exam Eye Exam: Normal appearance - Respiratory Exam Respiratory Exam: Clear to Ausculation Bilateral, NORMAL BREATHING PATTERN - Cardiovascular Exam Cardiovascular Exam: Clicks, REGULAR RHYTHM, +S1, +S2 - GI/Abdominal Exam GI & Abdominal Exam: Soft. absent: Distended, Guarding, Tenderness - Extremities Exam Extremities Exam: absent: Pedal Edema - Neurological Exam Neurological Exam: Alert, Awake Assessment and Plan - Assessment and Plan (Free Text) Assessment: 42 YO Female with PMHx of cardiac valve repair (x2) is admitted for hepatitis, likely secondary to calculi in biliary tree with biliary tree dilatation with s upratherapeutic INR now subtherapeutic currently on heparin. Viral hepatitis ruled out, acetominophen level <10. CT abd and pelvis sig for dilated common bile duct and intrahepatic biliary system, ovarian cysts. MRCP:Dilated common bile duct measures approximately 17 mm in diameter. Small filling defect present measuring approximately 6 mm, possibly small calculus. Distal common bile duct demonstrates abrupt taper; primary or secondary stricture not excluded. Intrahepatic biliary ductal dilatation. Hepatic steatosis. Today: Liver enzymes trending down, patient is afebrile and hemodynamically stable. C/w heparin Drip due to subtherapeutic INR. Tolerating clear liquid diet will advance to low fat diet. Cleared by Dr. Sherman for ERCP. ERCP in AM NPO past midnight HEparin drip to be d/c at 7 AM Hepatitis thought to be secondary to CBD obstruction with calculi -LFTs improving -for possible ERCP -start low fat diet -Case d/w Dr. Ryan Supratherapeutic INR now subtherapeutic -patient is on coumadin at home, however level continues to rise despite holding coumadin -monitor PT/INR -Vitamin K given 08/26 and 08/27 repeat inr pending Anemia --stable, could be dilutional --normocytic, monitor cbc Cardiac valvular disease -chronic -s/p repair with metallic mitral valve -c/w BB, hold coumadin DVT prophylaxis -on warfarin at home -heparin drip -SCDs for now -ambulation Hypokalemia -resolved Rafael PGY3 <Nancy Shafer Last Filed: 08/29/18 15:37> Objective - Vital Signs/Intake and Output Vital Signs (last 24 hours): Temp Pulse Resp BP Pulse Ox 97.6 F 64 18 124/85 98 08/29/18 08:44 08/29/18 08:44 08/29/18 08:44 08/29/18 08:44 08/29/18 08:44 - Medications Medications: Current Medications Heparin Sodium/Dextrose (Heparin 25,000 Units/250ml In D5w) 25,000 units in 250 mls @ 9.5 mls/hr IV .Q24H [facility]; Protocol Stop: 08/30/18 07:00 Last Admin: 08/28/18 22:59 Dose: 9.5 mls/hr Indomethacin (Indocin Suppository) 100 mg [place] ONCE ONE Stop: 08/30/18 12:01 Lidocaine (Lidoderm) 1 ea TD DAILY [facility] Last Admin: 08/29/18 08:32 Dose: 1 ea Metoprolol Succinate (Toprol Xl) 50 mg PO DAILY [facility] Last Admin: 08/29/18 08:33 Dose: 50 mg Morphine Sulfate (Morphine) 2 mg IVP Q4 PRN PRN Reason: Pain, severe (8-10) Last Admin: 08/25/18 17:28 Dose: 2 mg Morphine Sulfate (Morphine) 1 mg IVP Q6 PRN PRN Reason: Pain, moderate (4-7) Last Admin: 08/27/18 20:07 Dose: 1 mg Ondansetron HCl (Zofran Inj) 4 mg IVP Q6 PRN PRN Reason: Nausea/Vomiting Last Admin: 08/25/18 13:07 Dose: 4 mg Pantoprazole Sodium (Protonix Inj) 40 mg IVP DAILY [facility] Last Admin: 08/29/18 08:32 Dose: 40 mg - Labs Labs: 08/29/18 07:00 08/29/18 07:00 PT 13.0 Seconds (9.8-13.1) 08/29/18 07:00 INR 1.1 08/29/18 07:00 APTT 59.3 Seconds (25.6-37.1) H 08/28/18 21:50 Attending/Attestation - Attestation I have personally seen and examined this patient.: Yes I have fully participated in the care of the patient.: Yes I have reviewed all pertinent clinical information, including history, physical exam and plan: Yes Notes (Text): 1.Choledocholithiasis and possible CBD stricture 2. Abn LFTs 3. Mechanical Heart Valve on Anticoagulation 4. Supratherapeutic INR 5. HTN 6. Anemia, prob dilutional LFTs and bilirubin trending down Continue pain management no fever, no leukocytosis-no need for antibiotics Plan for ERCP tomorrow as per GI - Dr Ryan- Hold Heparin drip in am INR now normal after Vit K Coumadin held and started on Heparin drip in preparation for poss Surgical procedure - monitor APTT cont Metoprolol
[2018-08-29] MEDS: Heparin 25,000units in D5W 25,000 UNITS/250 ML BAG IV SCH (13:41)
[2018-08-29 15:09] LABS: INR 1.1
[2018-08-29 15:36] LABS: PARTIAL THROMBOPLASTIN TIME 57.4 Seconds (25.6-37.1)
[2018-08-29] MEDS ORDERED: Heparin 25,000units in D5W 25,000 UNITS/250 ML BAG IV SCH ×2 (20:30→22:30)
[2018-08-30 06:57] LABS: ALB/GLOB RATIO 1.1 (1.0-2.1); ALBUMIN 4.1 g/dL (3.5-5.0); ALT/SGPT 336 U/L (9-52); AST/SGOT 117 U/L (14-36); BLOOD UREA NITROGEN 17 mg/dl (7-17); CALCIUM 8.9 mg/dL (8.4-10.2); GFR NON-AFRICAN AMERICAN > 60
[2018-08-30] MEDS ORDERED: Iohexol 240 (50 ml) ONE (07:51)
[2018-08-30] MEDS ORDERED: Indomethacin 50 MG Suppository PR ONE ×3 (07:51→14:10)
[2018-08-30] MEDS ORDERED: Glucagon Recombinant 1 mg Inj ONE (07:51)
--- NOTE | 2018-08-30 08:13 | CP.PCM.PN ---
<Arleth George - Last Filed: 08/30/18 08:34> Subjective - Date & Time of Evaluation Date of Evaluation: 08/30/18 Time of Evaluation: 08:11 - Subjective Subjective: Surgery Progress Note for Dr. Ortega Patient seen and evaluated at bedside. No acute events overnight. No complaints this morning. Passing flatus, having BM. Denies f/c, n/v/d, SOB, CP, or urinary symptoms. Plan for ERCP today Objective - Vital Signs/Intake and Output Vital Signs (last 24 hours): Temp Pulse Resp BP Pulse Ox 97.8 F 69 20 121/77 98 08/30/18 07:55 08/30/18 07:55 08/30/18 07:55 08/30/18 07:55 08/30/18 07:55 - Medications Medications: Current Medications Indomethacin (Indocin Suppository) 100 mg [place] ONCE ONE Stop: 08/30/18 12:01 Lidocaine (Lidoderm) 1 ea TD DAILY [facility] Last Admin: 08/29/18 08:32 Dose: 1 ea Metoprolol Succinate (Toprol Xl) 50 mg PO DAILY [facility] Last Admin: 08/29/18 08:33 Dose: 50 mg Morphine Sulfate (Morphine) 2 mg IVP Q4 PRN PRN Reason: Pain, severe (8-10) Last Admin: 08/25/18 17:28 Dose: 2 mg Morphine Sulfate (Morphine) 1 mg IVP Q6 PRN PRN Reason: Pain, moderate (4-7) Last Admin: 08/27/18 20:07 Dose: 1 mg Ondansetron HCl (Zofran Inj) 4 mg IVP Q6 PRN PRN Reason: Nausea/Vomiting Last Admin: 08/25/18 13:07 Dose: 4 mg Pantoprazole Sodium (Protonix Inj) 40 mg IVP DAILY [facility] Last Admin: 08/29/18 08:32 Dose: 40 mg - Labs Labs: 08/29/18 07:00 08/30/18 06:15 PT 13.0 Seconds (9.8-13.1) 08/29/18 07:00 INR 1.1 08/29/18 07:00 APTT 57.4 Seconds (25.6-37.1) H 08/29/18 07:00 - Constitutional Appears: Well, Non-toxic, No Acute Distress - Head Exam Head Exam: ATRAUMATIC, NORMOCEPHALIC - Eye Exam Eye Exam: Normal appearance - ENT Exam ENT Exam: Mucous Membranes Moist - Respiratory Exam Respiratory Exam: Clear to Ausculation Bilateral, NORMAL BREATHING PATTERN - Cardiovascular Exam Cardiovascular Exam: REGULAR RHYTHM, +S1, +S2 - GI/Abdominal Exam GI & Abdominal Exam: Tenderness, Normal Bowel Sounds - Neurological Exam Neurological Exam: Alert, Awake, Oriented x3 - Psychiatric Exam Psychiatric exam: Normal Affect - Skin Skin Exam: Normal Color Assessment and Plan - Assessment and Plan (Free Text) Assessment: 42F w/ suspected choledocholithiasis Plan: Plan for ERCP today as per GI LFTs downtrending Continue to monitor liver enzymes Further recs per Dr. Ortega <Rusty Schneider - Last Filed: 09/02/18 03:46> Objective - Vital Signs/Intake and Output Vital Signs (last 24 hours): Temp Pulse Resp BP Pulse Ox 97.9 F 67 20 115/80 99 08/31/18 16:19 08/31/18 16:19 08/31/18 16:19 08/31/18 16:19 08/31/18 16:19 - Labs Labs: 08/31/18 05:40 08/31/18 05:40 PT 12.7 Seconds (9.8-13.1) 08/30/18 08:25 INR 1.1 08/30/18 08:25 APTT 89.3 Seconds (25.6-37.1) H 08/31/18 11:55 Assessment and Plan - Assessment and Plan (Free Text) Plan: All medical record entries made by the resident were at my direction. I have reviewed the chart and agree that the record accurately reflects my personal performance of the history, physical exam, and medical decision making. await [facility] results
[2018-08-30] MEDS ORDERED: Heparin 25,000units in D5W 25,000 UNITS/250 ML BAG IV SCH ×3 (08:15→20:15)
[2018-08-30 08:54] LABS: INR 1.1; PROTHROMBIN TIME 12.7 Seconds (9.8-13.1)
[2018-08-30 08:56] LABS: PARTIAL THROMBOPLASTIN TIME 51.2 Seconds (25.6-37.1)
[2018-08-30] MEDS: Lidocaine 5% Patch TD SCH (09:23)
[2018-08-30] MEDS: Metoprolol Succinate 50 mg XL Tab PO SCH (09:26)
--- NOTE | 2018-08-30 10:50 | CP.PCM.PN ---
<Kaity Parker - Last Filed: 08/30/18 10:54> Subjective - Date & Time of Evaluation Date of Evaluation: 08/30/18 Time of Evaluation: 10:50 - Subjective Subjective: No complaints. No overnight events. NPO status maintained. Plan for ERCP later today. Will need to restart heparin drip and coumadin today for mechanical valve. F/u post procedure. Objective - Vital Signs/Intake and Output Vital Signs (last 24 hours): Temp Pulse Resp BP Pulse Ox 97.8 F 69 20 121/77 98 08/30/18 07:55 08/30/18 09:26 08/30/18 07:55 08/30/18 09:26 08/30/18 07:55 - Medications Medications: Current Medications Ampicillin 2 gm/ Sodium (Chloride) 100 mls @ 100 mls/hr IVPB ONCE ONE; Protocol Stop: 08/30/18 12:59 Indomethacin (Indocin Suppository) 100 mg [place] ONCE ONE Stop: 08/30/18 12:01 Lidocaine (Lidoderm) 1 ea TD DAILY [facility] Last Admin: 08/30/18 09:23 Dose: 1 ea Metoprolol Succinate (Toprol Xl) 50 mg PO DAILY [facility] Last Admin: 08/30/18 09:26 Dose: 50 mg Morphine Sulfate (Morphine) 2 mg IVP Q4 PRN PRN Reason: Pain, severe (8-10) Last Admin: 08/25/18 17:28 Dose: 2 mg Morphine Sulfate (Morphine) 1 mg IVP Q6 PRN PRN Reason: Pain, moderate (4-7) Last Admin: 08/27/18 20:07 Dose: 1 mg Ondansetron HCl (Zofran Inj) 4 mg IVP Q6 PRN PRN Reason: Nausea/Vomiting Last Admin: 08/25/18 13:07 Dose: 4 mg Pantoprazole Sodium (Protonix Inj) 40 mg IVP DAILY [facility] Last Admin: 08/30/18 09:26 Dose: 40 mg - Labs Labs: 08/29/18 07:00 08/30/18 06:15 PT 12.7 Seconds (9.8-13.1) 08/30/18 08:25 INR 1.1 08/30/18 08:25 APTT 51.2 Seconds (25.6-37.1) H 08/30/18 08:25 - Constitutional Appears: Well - Head Exam Head Exam: ATRAUMATIC, NORMAL INSPECTION, NORMOCEPHALIC - Eye Exam Eye Exam: Normal appearance - ENT Exam ENT Exam: Mucous Membranes Moist - Respiratory Exam Respiratory Exam: Clear to Ausculation Bilateral, NORMAL BREATHING PATTERN - Cardiovascular Exam Cardiovascular Exam: REGULAR RHYTHM, +S1, +S2 - GI/Abdominal Exam GI & Abdominal Exam: Soft, Normal Bowel Sounds. absent: Distended, Guarding, Tenderness - Neurological Exam Neurological Exam: Alert, Awake, Oriented x3 - Psychiatric Exam Psychiatric exam: Normal Affect, Normal Mood - Skin Skin Exam: Dry, Intact Assessment and Plan - Assessment and Plan (Free Text) Assessment: 42 YO Female with PMHx of cardiac valve repair (x2) is admitted for hepatitis, likely secondary to calculi in biliary tree with biliary tree dilatation with supratherapeutic INR now subtherapeutic currently on heparin. Viral hepatitis ruled out, acetominophen level <10. CT abd and pelvis sig for dilated common bile duct and intrahepatic biliary system, ovarian cysts. MRCP:Dilated common bile duct measures approximately 17 mm in diameter. Small filling defect present measuring approximately 6 mm, possibly small calculus. Distal common bile duct demonstrates abrupt taper; primary or secondary stricture not excluded. Intrahepatic biliary ductal dilatation. Hepatic steatosis. Cleared by Dr. Sherman(cardiology) for ERCP. Transaminitis CBD obstruction with calculi Hepatic Steatosis Mechanical Heart Valve with supratherapeutic INR now subtherapeutic Anemia DVT prophylaxis -Plan for ERCP -Resume heparin drip post procedure, will discuss with Dr. Ryan -Coumadin to be resumed as well, INR 1.1 -Will follow up post procedure Rafael PGY3 <Nancy Shafer - Last Filed: 08/30/18 15:27> Objective - Vital Signs/Intake and Output Vital Signs (last 24 hours): Temp Pulse Resp BP Pulse Ox 97.3 F L 69 18 126/76 100 08/30/18 15:00 08/30/18 15:15 08/30/18 15:15 08/30/18 15:15 08/30/18 15:15 Intake and Output: 08/30/18 08/30/18 06:59 18:59 Intake Total 50 Balance 50 - Medications Medications: Current Medications Lidocaine (Lidoderm) 1 ea TD DAILY [facility] Last Admin: 08/30/18 09:23 Dose: 1 ea Metoprolol Succinate (Toprol Xl) 50 mg PO DAILY [facility] Last Admin: 08/30/18 09:26 Dose: 50 mg Morphine Sulfate (Morphine) 2 mg IVP Q4 PRN PRN Reason: Pain, severe (8-10) Last Admin: 08/25/18 17:28 Dose: 2 mg Morphine Sulfate (Morphine) 1 mg IVP Q6 PRN PRN Reason: Pain, moderate (4-7) Last Admin: 08/27/18 20:07 Dose: 1 mg Ondansetron HCl (Zofran Inj) 4 mg IVP Q6 PRN PRN Reason: Nausea/Vomiting Last Admin: 08/25/18 13:07 Dose: 4 mg Pantoprazole Sodium (Protonix Inj) 40 mg IVP DAILY [facility] Last Admin: 08/30/18 09:26 Dose: 40 mg - Labs Labs: 08/29/18 07:00 08/30/18 06:15 PT 12.7 Seconds (9.8-13.1) 08/30/18 08:25 INR 1.1 08/30/18 08:25 APTT 51.2 Seconds (25.6-37.1) H 08/30/18 08:25 Attending/Attestation - Attestation I have personally seen and examined this patient.: Yes I have fully participated in the care of the patient.: Yes I have reviewed all pertinent clinical information, including history, physical exam and plan: Yes Notes (Text): 1.Choledochal Cyst /Choledocholithiasis 2. Abn LFTs 3. Mechanical Heart Valve on Anticoagulation 4. Supratherapeutic INR, resolved 5. HTN 6. Anemia, prob dilutional LFTs and bilirubin trending down ERCP done by Dr Ryan showed Choledochal cyst Discussed with Surgery - plan for surgery to remove Choledochal cyst - Monday Surgery wants formal Cardiac clearance due to [facility] Heart Valve - cardio consult, ECHO Continue pain management Restart Heparin drip, hold off on the Coumadin due to plan for surgery Monday
[2018-08-30] MEDS ORDERED: AMPicillin 2 GM in Sodium Chloride 0.9% 100 ML IVPB ONE (12:00)
[2018-08-30] MEDS ORDERED: Lactated Ringer's 500 ML IV ONE ×2 (13:45→15:00)
[2018-08-30] MEDS ORDERED: Midazolam 2 MG/2 ML VIAL ONE (13:51)
[2018-08-30] MEDS ORDERED: Etomidate 20 mg/10ml Inj IV ONE (13:51)
[2018-08-30] MEDS ORDERED: Propofol 10 mg/ml Inj (20 ML) ONE (13:52)
[2018-08-30] MEDS ORDERED: Lactated Ringer's 500 ML IV SCH (15:30)
--- NOTE | 2018-08-30 16:48 | RAD ---
Date of service: 08/30/2018 PROCEDURE: ERCP HISTORY: Transaminitis/ elevated alk phos 2/2biliary stone COMPARISON: None TECHNIQUE: Standard protocol for this study/examination. FINDINGS: Total fluoroscopic time (continuous mode) utilized during the procedure 158 seconds. Submitted images from the current procedure: 7.0 IMPRESSION: Less than 1 hr fluoroscopic assistance provided during performance of the procedure.
[2018-08-30 20:38] VITALS: BMI 30.2
[2018-08-31 03:26] VITALS: RESP 20; O2SAT 99
[2018-08-31] MEDS ORDERED: Heparin 25,000units in D5W 25,000 UNITS/250 ML BAG IV SCH (06:00)
[2018-08-31 06:23] LABS: BASO % 0.5 % (0.0-2.0); EOS # 0.2 K/uL (0.0-0.7); EOS % 2.2 % (0.0-4.0); HEMOGLOBIN 11.5 g/dL (12.0-16.0); LYMPH # 1.1 K/uL (1.0-4.3); LYMPH % 15.2 % (20.0-40.0); MEAN CELL VOLUME 84.5 fl (81.0-99.0); MEAN CORPUSCULAR HEMOGLOBIN 28.2 pg (27.0-31.0); MEAN CORPUSCULAR HGB CONC 33.4 g/dL (33.0-37.0); MEAN PLATELET VOLUME 8.5 fl (7.2-11.7); MONO # 0.6 K/uL (0.0-0.8); NEUT # 5.6 K/uL (1.8-7.0); NEUT % 74.1 % (50.0-75.0); RBC 4.09 Mil/uL (3.80-5.20); RED CELL DISTRIBUTION WIDTH 13.6 % (11.5-14.5); WHITE BLOOD COUNT 7.6 K/uL (4.8-10.8)
[2018-08-31 06:53] LABS: ALB/GLOB RATIO 1.1 (1.0-2.1); ALBUMIN 3.7 g/dL (3.5-5.0); ALT/SGPT 322 U/L (9-52); AST/SGOT 193 U/L (14-36); BLOOD UREA NITROGEN 15 mg/dl (7-17); CALCIUM 8.6 mg/dL (8.4-10.2); GFR NON-AFRICAN AMERICAN > 60; LIPASE 88 U/L (23-300)
--- NOTE | 2018-08-31 07:39 | CP.PCM.PN ---
<Jose Mclean - Last Filed: 08/31/18 10:21> Subjective - Date & Time of Evaluation Date of Evaluation: 08/31/18 Time of Evaluation: 10:21 - Subjective Subjective: General Surgery Note for Dr. Ortega Patient seen and examined at bedside. No acute event overnight. She is s/p ERCP POD#1. Patient has no complaints and feels fine. She is tolerating diet. Paasing flatus and having BM. Patient denies fever/chills, nausea/vomiting, or abd pain. Objective - Vital Signs/Intake and Output Vital Signs (last 24 hours): Temp Pulse Resp BP Pulse Ox 97.8 F 60 20 143/83 99 08/31/18 03:25 08/31/18 03:25 08/31/18 03:25 08/31/18 03:25 08/31/18 03:25 - Medications Medications: Current Medications Lactated Ringer's (Lactated Ringer's 500ml) 500 mls @ 75 mls/hr IV .[id number] [facility] Heparin Sodium/Dextrose (Heparin 25,000 Units/250ml In D5w) 25,000 units in 250 mls @ 11.5 mls/hr IV .[id number] [facility]; Protocol Last Admin: 08/31/18 06:14 Dose: 11.5 mls/hr Lidocaine (Lidoderm) 1 ea TD DAILY [facility] Last Admin: 08/30/18 09:23 Dose: 1 ea Metoprolol Succinate (Toprol Xl) 50 mg PO DAILY [facility] Last Admin: 08/30/18 09:26 Dose: 50 mg Morphine Sulfate (Morphine) 2 mg IVP Q4 PRN PRN Reason: Pain, severe (8-10) Last Admin: 08/25/18 17:28 Dose: 2 mg Morphine Sulfate (Morphine) 1 mg IVP Q6 PRN PRN Reason: Pain, moderate (4-7) Last Admin: 08/27/18 20:07 Dose: 1 mg Ondansetron HCl (Zofran Inj) 4 mg IVP Q6 PRN PRN Reason: Nausea/Vomiting Last Admin: 08/25/18 13:07 Dose: 4 mg Pantoprazole Sodium (Protonix Inj) 40 mg IVP DAILY [facility] Last Admin: 08/30/18 09:26 Dose: 40 mg - Labs Labs: 08/31/18 05:40 08/31/18 05:40 PT 12.7 Seconds (9.8-13.1) 08/30/18 08:25 INR 1.1 08/30/18 08:25 APTT 188.7 Seconds (25.6-37.1) H 08/31/18 04:00 - Constitutional Appears: No Acute Distress - Head Exam Head Exam: ATRAUMATIC, NORMOCEPHALIC - Eye Exam Eye Exam: EOMI, Normal appearance Pupil Exam: PERRL - ENT Exam ENT Exam: Mucous Membranes Moist - Respiratory Exam Respiratory Exam: NORMAL BREATHING PATTERN - Cardiovascular Exam Cardiovascular Exam: REGULAR RHYTHM - GI/Abdominal Exam GI & Abdominal Exam: Soft, Normal Bowel Sounds. 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 Collins PGY2 <Rusty Schneider - Last Filed: 09/02/18 03:41> Objective - Vital Signs/Intake and Output Vital Signs (last 24 hours): Temp Pulse Resp BP Pulse Ox 97.9 F 67 20 115/80 99 08/31/18 16:19 08/31/18 16:19 08/31/18 16:19 08/31/18 16:19 08/31/18 16:19 - Labs Labs: 08/31/18 05:40 08/31/18 05:40 PT 12.7 Seconds (9.8-13.1) 08/30/18 08:25 INR 1.1 08/30/18 08:25 APTT 89.3 Seconds (25.6-37.1) H 08/31/18 11:55 Assessment and Plan - Assessment and Plan (Free Text) Plan: All medical record entries made by the resident were at my direction. I have reviewed the chart and agree that the record accurately reflects my personal performance of the history, physical exam, and medical decision making Patient has choledochocyst on MRI and comfirmed on ERCP. Pending OR
[2018-08-31] MEDS ORDERED: ceFAZolin 2 GM in Sodium Chloride 0.9% 100 ML IVPB ONE ×2 (08:06→12:00)
[2018-08-31] MEDS ORDERED: AMPicillin 2 GM in Sodium Chloride 0.9% 100 ML IVPB ONE (08:18)
[2018-08-31] MEDS: Lidocaine 5% Patch TD SCH (09:53)
--- NOTE | 2018-08-31 10:37 | CP.PCM.PN ---
Subjective - Date & Time of Evaluation Date of Evaluation: 08/31/18 Time of Evaluation: 15:54 - Subjective Subjective: No acute overnight events. Patient feeling better. No abdominal pain. Currently on heparin drip. Objective - Vital Signs/Intake and Output Vital Signs (last 24 hours): Temp Pulse Resp BP Pulse Ox 97.7 F 63 20 106/66 99 08/31/18 08:07 08/31/18 08:07 08/31/18 08:07 08/31/18 08:07 08/31/18 08:07 - Medications Medications: Current Medications Lactated Ringer's (Lactated Ringer's 500ml) 500 mls @ 75 mls/hr IV .Q6H40M RADHA Heparin Sodium/Dextrose (Heparin 25,000 Units/250ml In D5w) 25,000 units in 250 mls @ 11.5 mls/hr IV .[id number] RADHA; Protocol Last Admin: 08/31/18 06:14 Dose: 11.5 mls/hr Lidocaine (Lidoderm) 1 ea TD DAILY [facility] Last Admin: 08/30/18 09:23 Dose: 1 ea Metoprolol Succinate (Toprol Xl) 50 mg PO DAILY [facility] Last Admin: 08/30/18 09:26 Dose: 50 mg Morphine Sulfate (Morphine) 2 mg IVP Q4 PRN PRN Reason: Pain, severe (8-10) Last Admin: 08/25/18 17:28 Dose: 2 mg Morphine Sulfate (Morphine) 1 mg IVP Q6 PRN PRN Reason: Pain, moderate (4-7) Last Admin: 08/27/18 20:07 Dose: 1 mg Ondansetron HCl (Zofran Inj) 4 mg IVP Q6 PRN PRN Reason: Nausea/Vomiting Last Admin: 08/25/18 13:07 Dose: 4 mg Pantoprazole Sodium (Protonix Inj) 40 mg IVP DAILY [facility] Last Admin: 08/30/18 09:26 Dose: 40 mg - Labs Labs: 08/31/18 05:40 08/31/18 05:40 PT 12.7 Seconds (9.8-13.1) 08/30/18 08:25 INR 1.1 08/30/18 08:25 APTT 188.7 Seconds (25.6-37.1) H 08/31/18 04:00 - Constitutional Appears: Well, Non-toxic - Head Exam Head Exam: ATRAUMATIC, NORMAL INSPECTION, NORMOCEPHALIC - Respiratory Exam Respiratory Exam: Clear to Ausculation Bilateral, NORMAL BREATHING PATTERN - Cardiovascular Exam Cardiovascular Exam: REGULAR RHYTHM, +S1, +S2. absent: Murmur - GI/Abdominal Exam GI & Abdominal Exam: Soft, Normal Bowel Sounds. absent: Distended, Guarding, Tenderness - Extremities Exam Extremities Exam: Full ROM, Normal Capillary Refill, Normal Inspection. absent: Joint Swelling, Pedal Edema - Neurological Exam Neurological Exam: Alert, Awake - Psychiatric Exam Psychiatric exam: Normal Affect, Normal Mood - Skin Skin Exam: Dry, Intact, Normal Color, Warm Assessment and Plan (1) Choledochal cyst Status: Acute (2) Choledocholithiasis with acute cholecystitis Status: Acute (3) Mechanical heart valve present Status: Chronic - Assessment and Plan (Free Text) Assessment: 42 YO Female with PMHx of cardiac valve repair (x2) is admitted for hepatitis, likely secondary to calculi in biliary tree with biliary tree dilatation with supratherapeutic INR now subtherapeutic currently on heparin. Viral hepatitis ruled out, acetominophen level <10. CT abd and pelvis sig for dilated common bile duct and intrahepatic biliary system, ovarian cysts. MRCP:Dilated common bile duct measures approximately 17 mm in diameter. Small filling defect present measuring approximately 6 mm, possibly small calculus. Distal common bile duct demonstrates abrupt taper; primary or secondary stricture not excluded. Intrahepatic biliary ductal dilatation. Hepatic steatosis. 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 CBD obstruction with calculi s/p ERCP found to have choledolchocyst Transaminitis Hepatic Steatosis Mechanical Heart Valve with supratherapeutic INR now subtherapeutic Anemia DVT prophylaxis -Plan for possible surgery of cyst, pending discussion with patient/family as per surgery. -Heparin Drip resumed. - Patient to be scheduled for surgery by Dr. Ortega for type 1 choledochol cyst excision hepaticojejunostomy. Rafael PGY3
--- NOTE | 2018-08-31 10:48 | CP.PCM.PN ---
Subjective - Date & Time of Evaluation Date of Evaluation: 08/31/18 Time of Evaluation: 10:47 - Subjective Subjective: no overnight events Objective - Vital Signs/Intake and Output Vital Signs (last 24 hours): Temp Pulse Resp BP Pulse Ox 97.7 F 63 20 106/66 99 08/31/18 08:07 08/31/18 08:07 08/31/18 08:07 08/31/18 08:07 08/31/18 08:07 - Medications Medications: Current Medications Lactated Ringer's (Lactated Ringer's 500ml) 500 mls @ 75 mls/hr IV .Q6H40M RADHA Heparin Sodium/Dextrose (Heparin 25,000 Units/250ml In D5w) 25,000 units in 250 mls @ 11.5 mls/hr IV .[id number] RADHA; Protocol Last Admin: 08/31/18 06:14 Dose: 11.5 mls/hr Lidocaine (Lidoderm) 1 ea TD DAILY [facility] Last Admin: 08/30/18 09:23 Dose: 1 ea Metoprolol Succinate (Toprol Xl) 50 mg PO DAILY [facility] Last Admin: 08/30/18 09:26 Dose: 50 mg Morphine Sulfate (Morphine) 2 mg IVP Q4 PRN PRN Reason: Pain, severe (8-10) Last Admin: 08/25/18 17:28 Dose: 2 mg Morphine Sulfate (Morphine) 1 mg IVP Q6 PRN PRN Reason: Pain, moderate (4-7) Last Admin: 08/27/18 20:07 Dose: 1 mg Ondansetron HCl (Zofran Inj) 4 mg IVP Q6 PRN PRN Reason: Nausea/Vomiting Last Admin: 08/25/18 13:07 Dose: 4 mg Pantoprazole Sodium (Protonix Inj) 40 mg IVP DAILY [facility] Last Admin: 08/30/18 09:26 Dose: 40 mg - Labs Labs: 08/31/18 05:40 08/31/18 05:40 PT 12.7 Seconds (9.8-13.1) 08/30/18 08:25 INR 1.1 08/30/18 08:25 APTT 188.7 Seconds (25.6-37.1) H 08/31/18 04:00 - Neck Exam Neck Exam: Normal Inspection - Respiratory Exam Respiratory Exam: Clear to Ausculation Bilateral, NORMAL BREATHING PATTERN - Cardiovascular Exam Cardiovascular Exam: REGULAR RHYTHM - GI/Abdominal Exam GI & Abdominal Exam: Soft, Normal Bowel Sounds Assessment and Plan - Assessment and Plan (Free Text) Assessment: 42 yo female with cbd stones s/p ercp and doing well ADAT cbd dilated on ercp cholangiogram concern for choledochocyst hepatobiliary evaluation
[2018-08-31] MEDS: Metoprolol Succinate 50 mg XL Tab PO SCH (11:51)
--- NOTE | 2018-08-31 12:33 | CARD ---
APPROVED REPORT Date of service: 08/31/2018 EXAM: Two-dimensional and M-mode echocardiogram with Doppler and color Doppler. Other Information Quality : GoodRhythm : NSR INDICATION Pre-Op Surgery/Intervention Status/Post Aortic Valve Replacement: Mechanical Status/Post Mitral Valve Replacement: Mechanical 2D DIMENSIONS IVSd0.95 (0.7-1.1cm)LVDd4.50 (3.9-5.9cm) LVOT Diameter1.83 (1.8-2.4cm)PWd1.16 (0.7-1.1cm) IVSs1.75 (0.8-1.2cm)LVDs2.42 (2.5-4.0cm) FS (%) 46.1 %PWs1.43 (0.8-1.2cm) M-Mode DIMENSIONS IVSd1.00 (0.7-1.1cm)LVDd4.12 (4.0-5.6cm) PWd0.74 (0.7-1.1cm)IVSs1.21 cm FS (%) 43 %LVDs2.35 (2.0-3.8cm) PWs1.29 cm Aortic Valve AoV Peak Hppxdctf420.9cm/sAoV VTI76.9cmAO Peak GR.42mmHg LVOT Peak Fbanfmhb93.2cm/sLVOT VTI17.18cmAO Mean GR.22mmHg TORRES (VMAX)0.93gw6HIW (VTI)0.35cm2 Mitral Valve MV E Pybhdgxs902.8cm/sMV DECEL [id number] A Ehtlppux17.5cm/s MV NPT89jqQ/A ratio2.8MVA (PHT)3.52cm2 TDI E/Lateral E'0.0E/Medial E'0.0 Tricuspid Valve TR Peak Tqjuxgjh274zz/sRAP BVXOCZQC28owEtST Peak Gr.26mmHg AWKU74ywMn LEFT VENTRICLE The left ventricle is normal size. There is normal left ventricular wall thickness. The left ventricular systolic function is normal. The estimated ejection fraction is 60-65% No regional wall motion abnormalities noted.. Transmitral Doppler flow pattern is Grade II-pseudonormal filling dynamics. No left ventricle thrombus noted on this study. There is no ventricular septal defect visualized. There is no left ventricular aneurysm. There is no mass noted in the left ventricle. RIGHT VENTRICLE The right ventricle is normal size. There is normal right ventricular wall thickness. The right ventricular systolic function is normal. ATRIA The left atrium is mildly dilated. The right atrium size is normal. The interatrial septum is intact with no evidence for an atrial septal defect. AORTIC VALVE Mechanical aortic valve. No aortic regurgitation is present. Peak velocity accross the valve is 3.2 m/sec. Calculated AV area is < 1 cm2. Likely has patient prosthesis mismatch. Correlate clinically. There is no aortic valvular vegetation. MITRAL VALVE There is mechanical mitral valve. There is no evidence of mitral valve prolapse. There is no mitral valve stenosis. There is no mitral valve regurgitation noted. TRICUSPID VALVE The tricuspid valve is normal in structure. There is mild tricuspid valve regurgitation noted. RVSP is calculated at 33 mm Hg. There is no tricuspid valve prolapse or vegetation. There is no tricuspid valve stenosis. PULMONIC VALVE The pulmonary valve is normal in structure. There is no pulmonic valvular regurgitation. There is no pulmonic valvular stenosis. GREAT VESSELS The aortic root is normal in size. The ascending aorta is normal in size. The pulmonary artery is normal. The IVC is normal in size and collapses >50% with inspiration. PERICARDIAL EFFUSION There is no pericardial effusion. There is no pleural effusion. <Conclusion> Technically difficult study The estimated ejection fraction is 60-65% Transmitral Doppler flow pattern is Grade II-pseudonormal filling dynamics. The left atrium is mildly dilated. Mechanical aortic valve. Peak velocity accross the valve is 3.2 m/sec. Calculated AV area is < 1 cm2. Likely has patient prosthesis mismatch. Correlate clinically. There is mechanical mitral valve in place. There is mild tricuspid valve regurgitation noted. RVSP is calculated at 33 mm Hg.
[2018-08-31] MEDS ORDERED: Enoxaparin 80 mg Syringe SC ONE (15:18)
--- NOTE | 2018-08-31 16:02 | CP.PCM.DIS ---
Provider - Provider Date of Admission: 08/25/18 05:03 Attending physician: Luis Roy MD Consults: 08/25/18 05:01 Surgery [General Surgery Consult] Stat Comment: Consulting Provider: Rusty Schneider Consulting Physician: Rusty Schneider Reason for Consult: elevated LFTs and dilated hepatic duct 08/25/18 08:00 Gastroenterology Consult Routine Comment: Consulting Provider: Gilbert Ryan Consulting Physician: Gilbert Ryan Reason for Consult: Elevated liver enzymes 08/30/18 15:20 Cardiology Consult Routine Comment: Consulting Provider: Trevor Oseguera Consulting Physician: Trevor Oseguera Reason for Consult: Cardiac clearance for surgery, hx of mechanical valve x 2 Time Spent in preparation of Discharge (in minutes): 35 Diagnosis - Discharge Diagnosis (1) Choledochal cyst Status: Acute Comment: For excision with Dr. Ortega (2) Choledocholithiasis with acute cholecystitis Status: Acute Comment: s/p ERCP -with removal of biliary stone and sphincterotomy. (3) Mechanical heart valve present Status: Chronic Comment: patient was given vitamin k x 2, started on heparin drip. Discharged on therapeutic lovenox 80mg q 12 hrs for next 3 days until surgery scheduled on 09/04/18 Hospital Course - Lab Results Lab Results: Most Recent Lab Values WBC 7.6 K/uL (4.8-10.8) 08/31/18 05:40 RBC 4.09 Mil/uL (3.80-5.20) 08/31/18 05:40 Hgb 11.5 g/dL (12.0-16.0) L 08/31/18 05:40 Hct 34.6 % (34.0-47.0) 08/31/18 05:40 MCV 84.5 fl (81.0-99.0) 08/31/18 05:40 MCH 28.2 pg (27.0-31.0) 08/31/18 05:40 MCHC 33.4 g/dL (33.0-37.0) 08/31/18 05:40 RDW 13.6 % (11.5-14.5) 08/31/18 05:40 Plt Count 221 K/uL (130-400) 08/31/18 05:40 MPV 8.5 fl (7.2-11.7) 08/31/18 05:40 Neut % (Auto) 74.1 % (50.0-75.0) 08/31/18 05:40 Lymph % (Auto) 15.2 % (20.0-40.0) L 08/31/18 05:40 [place] % (Auto) 8.0 % (0.0-10.0) 08/31/18 05:40 Eos % (Auto) 2.2 % (0.0-4.0) 08/31/18 05:40 Baso % (Auto) 0.5 % (0.0-2.0) 08/31/18 05:40 Neut # (Auto) 5.6 K/uL (1.8-7.0) 08/31/18 05:40 Lymph # (Auto) 1.1 K/uL (1.0-4.3) 08/31/18 05:40 [place] # (Auto) 0.6 K/uL (0.0-0.8) 08/31/18 05:40 Eos # (Auto) 0.2 K/uL (0.0-0.7) 08/31/18 05:40 Baso # (Auto) 0.0 K/uL (0.0-0.2) 08/31/18 05:40 Neutrophils % (Manual) 92 % (42-75) H 08/25/18 01:09 Band Neutrophils % 1 % (0-2) 08/25/18 01:09 Lymphocytes % (Manual) 5 % (20-50) L 08/25/18 01:09 Monocytes % (Manual) 1 % (0-10) 08/25/18 01:09 Myelocytes % 1 % (0-0) H 08/25/18 01:09 Platelet Estimate Normal (NORMAL) 08/25/18 01:09 Large Platelets Present 08/25/18 01:09 Hypochromasia (manual) Slight 08/25/18 01:09 Anisocytosis (manual) Slight 08/25/18 01:09 Joon Cells Slight 08/25/18 01:09 Acanthocytes (Spur) Slight 08/25/18 01:09 PT 12.7 Seconds (9.8-13.1) 08/30/18 08:25 INR 1.1 08/30/18 08:25 APTT 89.3 Seconds (25.6-37.1) H 08/31/18 11:55 pO2 23 mm/Hg (30-55) L 08/25/18 01:13 VBG pH 7.30 (7.32-7.43) L 08/25/18 01:13 VBG pCO2 56 mmHg (40-60) 08/25/18 01:13 VBG HCO3 23.3 mmol/L 08/25/18 01:13 VBG Total CO2 29.3 mmol/L (22-28) H 08/25/18 01:13 VBG O2 Sat (Calc) 38.2 % (40-65) L 08/25/18 01:13 VBG Base Excess 0.1 mmol/L (0.0-2.0) 08/25/18 01:13 VBG Potassium 4.5 mmol/L (3.6-5.2) 08/25/18 01:13 Sodium 138.0 mmol/L (132-148) 08/25/18 01:13 Chloride 105.0 mmol/L (98-107) 08/25/18 01:13 Glucose 114 mg/dL (65-105) H 08/25/18 01:13 Lactate 1.7 mmol/L (0.7-2.1) 08/25/18 01:13 FiO2 21.0 % 08/25/18 01:13 Sodium 135 mmol/l (132-148) 08/31/18 05:40 Potassium 4.1 MMOL/L (3.6-5.0) 08/31/18 05:40 Chloride 99 mmol/L (98-107) 08/31/18 05:40 Carbon Dioxide 26 mmol/L (22-30) 08/31/18 05:40 Anion Gap 14 (10-20) 08/31/18 05:40 BUN 15 mg/dl (7-17) 08/31/18 05:40 Creatinine 0.7 mg/dl (0.7-1.2) 08/31/18 05:40 Est GFR ( Amer) > 60 08/31/18 05:40 Est GFR (Non-Af Amer) > 60 08/31/18 05:40 Random Glucose 110 mg/dL (65-105) H 08/31/18 05:40 Calcium 8.6 mg/dL (8.4-10.2) 08/31/18 05:40 Phosphorus 2.5 mg/dl (2.5-4.5) 08/28/18 02:00 Magnesium 1.8 MG/DL (1.6-2.3) 08/29/18 07:00 Total Bilirubin 1.7 mg/dl (0.2-1.3) H 08/31/18 05:40 AST 193 U/L (14-36) H D 08/31/18 05:40 ALT 322 U/L (9-52) H 08/31/18 05:40 Alkaline Phosphatase 365 U/L (38-126) H 08/31/18 05:40 Troponin I < 0.0120 ng/mL (0.00-0.120) 08/25/18 01:09 NT-Pro-B Natriuret Pep 359 pg/ml (0-450) 08/25/18 01:09 Total Protein 7.1 G/DL (6.3-8.2) 08/31/18 05:40 Albumin 3.7 g/dL (3.5-5.0) 08/31/18 05:40 Globulin 3.4 gm/dL (2.2-3.9) 08/31/18 05:40 Albumin/Globulin Ratio 1.1 (1.0-2.1) 08/31/18 05:40 Lipase 88 U/L (23-300) 08/31/18 05:40 Venous Blood Potassium 4.5 mmol/L (3.6-5.2) 08/25/18 01:13 Urine Color Michelle (YELLOW) 08/25/18 01:09 Urine Clarity Slighty-cloudy (Clear) 08/25/18 01:09 Urine pH 5.0 (5.0-8.0) 08/25/18 01:09 Ur Specific [place] 1.039 (1.003-1.030) H 08/25/18 01:09 Urine Protein 100 mg/dL (NEGATIVE) 08/25/18 01:09 Urine Glucose (UA) Neg mg/dL (NEGATIVE) 08/25/18 01:09 Urine Ketones Negative mg/dL (NEGATIVE) 08/25/18 01:09 Urine Blood Small (NEGATIVE) 08/25/18 01:09 Urine Nitrate Negative (NEGATIVE) 08/25/18 01:09 Urine Bilirubin Small (NEGATIVE) 08/25/18 01:09 Urine Urobilinogen 4.0 mg/dL (0.2-1.0) H 08/25/18 01:09 Ur Leukocyte Esterase Neg Iza/uL (Negative) 08/25/18 01:09 Urine RBC (Auto) 34 /hpf (0-3) H 08/25/18 01:09 Urine Microscopic WBC 3 /hpf (0-5) 08/25/18 01:09 Ur Squamous Epith Cells 2 /hpf (0-5) 08/25/18 01:09 Urine Opiates Screen Positive (NEGATIVE) H 08/25/18 20:04 Urine Methadone Screen Negative (NEGATIVE) 08/25/18 20:04 Acetaminophen < 10.0 ug/ml (10.0-30.0) L 08/25/18 11:40 Ur Barbiturates Screen Negative (NEGATIVE) 08/25/18 20:04 Ur Phencyclidine Scrn Negative (NEGATIVE) 08/25/18 20:04 Ur Amphetamines Screen Negative (NEGATIVE) 08/25/18 20:04 U Benzodiazepines Scrn Negative (NEGATIVE) 08/25/18 20:04 U Oth Cocaine Metabols Negative (NEGATIVE) 08/25/18 20:04 U Cannabinoids Screen Negative (NEGATIVE) 08/25/18 20:04 Hepatitis A IgM Ab Negative (NEGATIVE) 08/25/18 06:04 Hep Bs Antigen Negative (NEGATIVE) 08/25/18 06:04 Hep B Core IgM Ab Negative (NEGATIVE) 08/25/18 06:04 Hepatitis C Antibody Negative (NEGATIVE) 08/25/18 06:04 Blood Type A POSITIVE 08/25/18 11:40 Blood Type Confirm A POSITIVE 08/25/18 14:45 Antibody Screen Negative 08/25/18 11:40 BBK History Checked No verified bt 08/25/18 11:40 - Hospital Course Hospital Course: 42 YO Female with PMHx of cardiac valve repair (x2) is admitted for hepatitis, likely secondary to calculi in biliary tree with biliary tree dilatation with supratherapeutic INR now subtherapeutic currently on heparin. Viral hepatitis ruled out, acetominophen level <10. CT abd and pelvis sig for dilated common bile duct and intrahepatic biliary system, ovarian cysts. MRCP:Dilated common bile duct measures approximately 17 mm in diameter. Small filling defect present measuring approximately 6 mm, possibly small calculus. Distal common bile duct demonstrates abrupt taper; primary or secondary stricture not excluded. Intrahepatic biliary ductal dilatation. Hepatic steatosis. 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 Patient to be scheduled for surgery by Dr. Ortega for type 1 choledochol cyst excision hepaticojejunostomy. Cardiac clearance requested for surgical procedure pending. Lovenox 80mg q12 hrs x 3 days. Do not restart coumadin. Return to [facility] on 09/04/18. Discharge Exam - GI/Abdominal Exam GI & Abdominal Exam: Soft - Skin Skin Exam: Dry, Intact, Normal Color, Warm Discharge Plan - Discharge Medications Prescriptions: Enoxaparin [Lovenox] 80 mg SQ Q12 3 Days #6 syr Ondansetron ODT [Zofran ODT] 4 mg PO Q6 PRN #5 odt PRN Reason: Nausea/Vomiting - Follow Up Plan Condition: FAIR Disposition: HOME/ ROUTINE Instructions: Gallstones (DC), Acute Abdominal Pain (DC) Additional Instructions: follow up with primary MD 1 week Referrals: Rusty Schneider MD [Staff Provider] - Gilbert Ryan MD, PhD [Staff Provider] -
[2018-08-31 16:20] VITALS: BP 115/80; PULSE 67; TEMP 97.9
--- NOTE | 2018-09-01 04:43 | CON ---
DATE: 08/31/2018 REASON FOR CONSULTATION: Preoperative evaluation. HISTORY OF PRESENT ILLNESS: The patient is a 42-year-old female, originally from [facility] who has a history of rheumatic heart disease in 1992. In [place], underwent presumably mitral valve commissurotomy in 1992. She became after this, had a daughter, and in 2000, the patient underwent aortic and mitral mechanical valve replacements, and she is being followed by Dr. Sherman as an outpatient, on Coumadin therapy. The patient presented with abdominal pain, was found to have cholelithiasis, cholecystitis, and biliary duct cyst without aggressive cholangitis. The patient underwent ERCP with removal of stones and debris and was considered for surgery for choledochal cyst as an outpatient on Monday of next week. The patient denied any chest pain or shortness of breath. She is fairly active and has no physical limitation of her activity and has no problems with her artificial valves since 2000, according to the daughter, who translated for me. MEDICATIONS: The patient's in-hospital medications were intravenous heparin on therapeutic regimen, morphine sulfate 2 mg intravenously every 4 hours p.r.n., Protonix 40 mg intravenously daily, Toprol-XL 50 mg once a day, Zofran 4 mg intravenous every 6 hours p.r.n. REVIEW OF SYSTEMS: No retrosternal chest pain, no shortness of breath, and no palpitations. PHYSICAL EXAMINATION: GENERAL: The patient is a middle-aged female who does not appear to be in any distress. VITAL SIGNS: At this time, blood pressure 115/80, heart rate 67, temperature 97.9, respirations 20. HEENT: Normocephalic. CHEST: Clear. HEART: S1, S2, regular. Metallic cardiac sounds. ABDOMEN: Soft. EXTREMITIES: No edema. LABORATORY DATA: EKG revealed normal sinus rhythm. Echocardiographic study revealed normal ejection fraction, mildly dilated left atrium, mechanical aortic valve. Peak velocity across the valve is 32 mm per second with calculated valve area less than 1 square centimeter. Likely has prosthesis mismatch. Mechanical mitral valve in place. Mild tricuspid insufficiency. Today's hemoglobin and hematocrit are 11.5 and 34.6. White count and platelet count are within normal limits. Today's SMA-7 is within normal limits except for glucose of 110. Today's total bilirubin is 1.7. AST, ALT, and alkaline phosphatase are elevated. Admitting INR is 4.9. Admitting chest x-ray, no active disease. Sternotomy sutures were noted. ASSESSMENT: 1. Status post mechanical mitral and aortic valve replacements in 2000. 2. Status post endoscopic retrograde cholangiopancreatography for common bile duct stones. 3. The patient is being considered for surgery for choledochal cyst. 4. Consider mechanical aortic valve stenosis. The calculated valve area from the transthoracic echo is less than 1 square centimeter. RECOMMENDATIONS: Continue current intravenous heparin until a therapeutic INR is achieved unless a decision is made to discharge the patient now, which it appears that the patient is being discharged. In this scenario, the patient needs to be kept on therapeutic subcutaneous Lovenox as an outpatient until she gets readmitted for her surgery. The patient has moderate to high cardiac risk from undergoing surgery under general anesthesia and surgically the procedure is unavoidable, then it needs to be done under close hemodynamic observation with a postoperative ICU monitoring. Further evaluation or intervention on the mechanical aortic prosthesis should be delayed and the patient is evaluated by our snow shoveler, Dr. Sherman, on outpatient basis. Trevor Oseguera MD
== END 2018-08-31 17:23 | disposition home or self-care (01) ==
LOC: H.ER 23:41 → H.ERHOLD 08-25 05:03 → H.MEDSURG1 08-25 09:50
PROVIDERS: ADMIT Internal Medicine; ATTEND Internal Medicine
PROC: 0F798ZZ Dilation of Common Bile Duct, Via Natural or Artificial Opening Endoscopic (ICD-10-PCS; 2018-08-30)
PROC: 0FC98ZZ Extirpation of Matter from Common Bile Duct, Via Natural or Artificial Opening Endoscopic (ICD-10-PCS; principal; 2018-08-30 13:00)
DX: K80.42 Calculus of bile duct with acute cholecystitis without obstruction (principal); K76.0 Fatty (change of) liver, not elsewhere classified; K75.9 Inflammatory liver disease, unspecified; E87.5 Hyperkalemia; I10 Essential (primary) hypertension; E87.6 Hypokalemia; D64.9 Anemia, unspecified; K29.70 Gastritis, unspecified, without bleeding; I09.9 Rheumatic heart disease, unspecified; N83.202 Unspecified ovarian cyst, left side; N83.201 Unspecified ovarian cyst, right side; R79.1 Abnormal coagulation profile; Z79.01 Long term (current) use of anticoagulants; Q44.4 Choledochal cyst; Z95.2 Presence of prosthetic heart valve

== ENCOUNTER 2018-09-02 12:22 | Inpatient (IN) | payer MEDICAID, OTHER ==
[2018-09-02 12:23] VITALS: BMI 30.8
[2018-09-02] MEDS ORDERED: Sodium Chloride 0.9% 1,000 ML IV STA ×2 (12:32→14:11)
[2018-09-02] MEDS ORDERED: Pantoprazole 40 MG in Sodium Chloride 0.9% 100 ML IVPB STA (12:47)
[2018-09-02 13:01] LABS: BASO # 0.1 K/uL (0.0-0.2); BASO % 0.9 % (0.0-2.0); EOS # 0.1 K/uL (0.0-0.7); EOS % 0.5 % (0.0-4.0); HEMOGLOBIN 10.3 g/dL (12.0-16.0); LYMPH # 1.4 K/uL (1.0-4.3); LYMPH % 12.3 % (20.0-40.0); MEAN CELL VOLUME 85.2 fl (81.0-99.0); MEAN CORPUSCULAR HEMOGLOBIN 28.1 pg (27.0-31.0); MEAN PLATELET VOLUME 8.6 fl (7.2-11.7); MONO # 0.5 K/uL (0.0-0.8); MONO % 4.9 % (0.0-10.0); NEUT # 9.1 K/uL (1.8-7.0); NEUT % 81.4 % (50.0-75.0); NRBC % 0.1 % (0.0-0.0); RBC 3.68 Mil/uL (3.80-5.20); WHITE BLOOD COUNT 11.2 K/uL (4.8-10.8)
[2018-09-02 13:05] LABS: VENOUS BLOOD GAS PCO2 33 mmHg (40-60); VENOUS BLOOD GAS PO2 42 mm/Hg (30-55); VENOUS BLOOD PH 7.43 (7.32-7.43)
[2018-09-02 13:13] LABS: INR 1.3; PROTHROMBIN TIME 14.4 Seconds (9.8-13.1)
[2018-09-02 13:14] LABS: ALB/GLOB RATIO 1.1 (1.0-2.1); ALT/SGPT 210 U/L (9-52); AMYLASE 106 U/L (30-110); AST/SGOT 64 U/L (14-36); BLOOD UREA NITROGEN 41 mg/dl (7-17); CALCIUM 8.9 mg/dL (8.4-10.2); GFR NON-AFRICAN AMERICAN > 60; LIPASE 95 U/L (23-300)
[2018-09-02 13:16] LABS: PARTIAL THROMBOPLASTIN TIME 29.6 Seconds (25.6-37.1)
--- NOTE | 2018-09-02 13:35 | ED PDOC ---
HPI:Nausea, Vomiting, Diarrhea Time Seen by Provider: 09/02/18 12:28 Chief Complaint (Nursing): GI Problem Chief Complaint (Provider): GI Problem History Per: Patient History/Exam Limitations: no limitations Onset/Duration Of Symptoms: Hrs Current Symptoms Are (Timing): Still Present Additional Complaint(s): Patient is a 42 y/o female with a PMHx of pneumonia, rheumatic disease, and choledocholithiasis who presents to the ED for evaluation of vomiting with episodes of blood and clots onset started this morning. Furthermore, patient complains of extreme lightheadedness and nausea. Daughter reports episodes of near fainting at home. Patient reports two days ago she was discharged from [place] ED after being admitted and treated for choledocholithiasis. Patient cl aimed she felt better and was tolerating food well at that time. Patient states she was also felt fine yesterday. Patient was on Coumadin for rheumatic disease and valve replacement. Since hospitalization patient changed to Lovenox for planned cholecystectomy on 09/04/18. Patient denies stomach pain, diarrhea, and black or bloody stools. PCP: Dr. Martha Sherman Past Medical History Reviewed: Historical Data, Nursing Documentation, Vital Signs Vital Signs: Last Vital Signs Temp 98.7 F 09/02/18 12:24 Pulse 87 09/02/18 12:24 Resp 18 09/02/18 12:24 BP 97/60 L 09/02/18 12:24 Pulse Ox 100 09/02/18 12:24 Primary Care Provider: Martha Sherman - Medical History PMH: Pneumonia Denies: HIV, Chronic Kidney Disease Other PMH: rheumatic diseases and choledocholithiasis - Surgical History Surgical History: Cholecystectomy Other surgeries: Valve Replacement - Family History Family History: States: Unknown Family Hx - Social History Current smoker - smoking cessation education provided: No Ex-Smoker (has not smoked in the last 12 months): No Alcohol: None Drugs: Denies - Home Medications Home Medications: Ambulatory Orders Medication Instructions Recorded Metoprolol Succinate [Kapspargo 50 mg PO DAILY 08/25/18 Sprinkle] Enoxaparin [Lovenox] 80 mg SQ Q12 3 Days #6 syr 08/31/18 Ondansetron ODT [Zofran ODT] 4 mg PO Q6 PRN #5 odt 08/31/18 - Allergies Allergies/Adverse Reactions: Allergies Allergy/AdvReac Type Severity Reaction Status Date / Time No Known Allergies Allergy Verified 09/02/18 12:26 Review of Systems ROS Statement: Except As Marked, All Systems Reviewed And Found Negative (as per HPI) Gastrointestinal: Positive for: Nausea, Vomiting (with episodes of blood and clots). Negative for: Abdominal Pain, Diarrhea, Melena, Hematochezia Neurological: Positive for: Dizziness, Other (lightheadedness) Physical Exam - Reviewed Nursing Documentation Reviewed: Yes Vital Signs Reviewed: Yes - Physical Exam Appears: Positive for: In Acute Distress (tired appearing) Head Exam: Positive for: ATRAUMATIC, NORMAL INSPECTION, NORMOCEPHALIC Skin: Positive for: Warm, Diaphoresis, Pallor, Jaundice Eye Exam: Positive for: EOMI, Normal appearance, PERRL ENT: Positive for: Normal ENT Inspection, Other (tacky mucous membranes) Neck: Positive for: Painless ROM, Supple Cardiovascular/Chest: Positive for: Regular Rate, Rhythm. Negative for: Murmur Respiratory: Positive for: Normal Breath Sounds. Negative for: Respiratory Distress Gastrointestinal/Abdominal: Positive for: Normal Exam, Soft. Negative for: Tenderness, Mass, Distended, Guarding, Rebound Back: Positive for: Normal Inspection. Negative for: Decreased ROM Extremity: Positive for: Normal ROM. Negative for: Deformity Lymphatic: Negative for: Adenopathy Neurological/Psych: Positive for: Lethargic, Other (arousable to voice) Comments: While in ED patient often closes eyes stating she feels dizzy and stays quiet for a few seconds. - Laboratory Results Result Diagrams: 09/03/18 04:25 09/03/18 04:25 Lab Results: pO2 42 mm/Hg (30-55) 09/02/18 12:38 VBG pH 7.43 (7.32-7.43) 09/02/18 12:38 VBG pCO2 33 mmHg (40-60) L 09/02/18 12:38 VBG HCO3 23.1 mmol/L 09/02/18 12:38 VBG Total CO2 22.9 mmol/L (22-28) 09/02/18 12:38 VBG O2 Sat (Calc) 88.1 % (40-65) H 09/02/18 12:38 VBG Base Excess -2.0 mmol/L (0.0-2.0) L 09/02/18 12:38 VBG Potassium 5.0 mmol/L (3.6-5.2) 09/02/18 12:38 Sodium 134.0 mmol/L (132-148) 09/02/18 12:38 Chloride 107.0 mmol/L (98-107) 09/02/18 12:38 Glucose 124 mg/dL (65-105) H 09/02/18 12:38 Lactate 1.6 mmol/L (0.7-2.1) 09/02/18 12:38 FiO2 21.0 % 09/02/18 12:38 PT 14.4 Seconds (9.8-13.1) H 09/02/18 13:00 INR 1.3 09/02/18 13:00 APTT 29.6 Seconds (25.6-37.1) 09/02/18 13:00 Total Bilirubin 0.8 mg/dl (0.2-1.3) 09/02/18 12:55 AST 64 U/L (14-36) H D 09/02/18 12:55 ALT 210 U/L (9-52) H D 09/02/18 12:55 Alkaline Phosphatase 279 U/L (38-126) H D 09/02/18 12:55 Total Protein 7.4 G/DL (6.3-8.2) 09/02/18 12:55 Albumin 4.0 g/dL (3.5-5.0) 09/02/18 12:55 Globulin 3.5 gm/dL (2.2-3.9) 09/02/18 12:55 Albumin/Globulin Ratio 1.1 (1.0-2.1) 09/02/18 12:55 Amylase 106 U/L (30-110) 09/02/18 12:55 Lipase 95 U/L (23-300) 09/02/18 12:55 - ECG O2 Sat by Pulse Oximetry: 100 (RA) Pulse Ox Interpretation: Normal - Critical Care Total Time (In Min): 30 Medical Decision Making Medical Decision Making: Time: 1255 Impression: GI Bleed DDx includes but not limited to acute gastritis, peptic ulcer disease, supratherapeutic anticoagulation, anemia, and near syncope. Plan: Packed Cells Leukoreduced Type and Screen VBG EKG Amylase CMP LDH Lipase Magnesium Phosphorus Urine Urine Dipstick CBC PTT Prothrombin Time Glucose, POC IV Fluids Protonix Inj 40 mg Sodium Chloride 0.9% Protonix Inj 80 mg IVP Blood Culture Transfused Blood IV Insertion Occult Blood, Stool Time: 1345 Hemoglobin 10 which is only a small drop from discharge. BUN 41. Hemoccult positive. Stool blood cult positive confirming GI bleed. Spoke with Dr. Alan who recommends repeat hemoglobin at [address] Alan recommends ICU placement. Patient discussed with Dr. Chaparro, diaphragm builder, who was made aware of ICU placement. Discussed findings with Dr. Hsieh, hospitalist. Scribe Attestation: Documented by Kameron Day, acting as a scribe Airam Keyes MD. Provider Scribe Attestation: All medical record entries made by the Scribe were at my direction and personally dictated by me. I have reviewed the chart and agree that the record accurately reflects my personal performance of the history, physical exam, medical decision making, and the department course for this patient. I have also personally directed, reviewed, and agree with the discharge instructions and disposition. Disposition - Clinical Impression Clinical Impression: Gastrointestinal hemorrhage - Disposition Disposition Time: 13:00 Condition: CRITICAL - Pt Status Changed To: Hospital Disposition Of: Inpatient - Admit Certification Admit to Inpatient:: After my assessment, the patient will require hospitaliza tion for at least two midnights. This is because of the severity of symptoms shown, intensity of services needed, and/or the medical risk in this patient being treated as an outpatient. - POA Present On Arrival: None
--- NOTE | 2018-09-02 14:50 | CP.PCM.HP ---
<Yarelis Ford - Last Filed: 09/02/18 15:25> History of Present Illness - History of Present Illness History of Present Illness: 42 yo female with history of cardiac valve repair (x2- aortic and mitral repair) on therapeutic lovenox, presented to [facility] ED because of vomiting blood clots. Patient is accompanied by daughters who say their mother had two episodes of vomitus with blood clots and one episode of fainting but did not fall or hit her head but goes "in and out" of conversation. Patient was recently discharged from [facility] after having an ERCP performed with Sphincterotomy performed because she was diagnosed with choledocholithiasis with obstructing stone. Patient was then discharged on therapeutic Lovenox given mechanical valves. At this time, patient reports she feels weak and dizzy. Denies chest pain, nausea, abdominal pain, lower extremity pain. Ros: negative except for stated above in HPI. Rn Recovery: Dr. Prakash Sherman PMHx: cardiac valvular repair (x2, metallic mitral valve, Aortic valve) SurgHx: see above, cholesesectomy (2000) FHx: cardiac disease, denies liver disease SHx: lives with family, denies ETOH, smoking and illicit drug use NKDA Meds: Metoprolol and Warfarin 5mg Monday and Monday, all other days Warfarin 7.5mg ED course: Hypotensive, afebrile, saturating 100% room air. -Packed Cells Leukoreduced and T & S - VBG, EKG, Amylase, CMP, LDH, Lipase, Mg, Phos, Urine Preg, Urine Dip, CBC, PTT, PT - Glucose - IV Fluids: 2L NS boluses - Protonix 80mg IVP loading dose then -Protonix Inj 40 mg drip - Blood Culture - Transfused Blood - Occult Blood, Stool Present on Admission - Present on Admission Any Indicators Present on Admission: No Past Patient History - Past Social History Alcohol: None Drugs: Denies - CARDIAC Hx Cardiac Disorders: Yes Hx Heart Murmur: Yes Other/Comment: cardiac valve repair, rheumatic disease - PULMONARY Hx Pneumonia: Yes - NEUROLOGICAL Hx Neurological Disorder: No - HEENT Hx HEENT Problems: No - RENAL Hx Chronic Kidney Disease: No - ENDOCRINE/METABOLIC Hx Endocrine Disorders: No - HEMATOLOGICAL/ONCOLOGICAL Hx Human Immunodeficiency Virus (HIV): No - INTEGUMENTARY Hx Dermatological Problems: No - MUSCULOSKELETAL/RHEUMATOLOGICAL Hx Musculoskeletal Disorders: No - GASTROINTESTINAL Hx Gastrointestinal Disorders: No - GENITOURINARY/GYNECOLOGICAL Hx Genitourinary Disorders: No - PSYCHIATRIC Hx Psychophysiologic Disorder: No Hx Substance Use: No - SURGICAL HISTORY Hx Cholecystectomy: Yes - ANESTHESIA Hx Anesthesia: Yes Hx Anesthesia Reactions: No Meds Allergies/Adverse Reactions: Allergies Allergy/AdvReac Type Severity Reaction Status Date / Time No Known Allergies Allergy Verified 09/02/18 12:26 Physical Exam - Constitutional Appears: Toxic, Chronically Ill, Other (fatigued ) - Eye Exam Eye Exam: Normal appearance Additional comments: Conjunctival pallor - ENT Exam ENT Exam: Mucous Membranes Moist - Neck Exam Neck exam: Positive for: Normal Inspection - Respiratory Exam Respiratory Exam: Clear to Auscultation Bilateral, NORMAL BREATHING PATTERN. absent: Accessory Muscle Use, Chest Wall Tenderness, Decreased Breath Sounds, Prolonged Expiratory Phase, Rales, Rhonchi, Wheezes, Respiratory Distress, Stridor - Cardiovascular Exam Cardiovascular Exam: Clicks, +S1, +S2 - GI/Abdominal Exam GI & Abdominal Exam: Normal Bowel Sounds, Soft. absent: Diminished Bowel Sounds, Distended, Firm, Rebound, Rigid, Tenderness - Extremities Exam Extremities exam: Positive for: normal capillary refill (< 2 sec cap), pedal pulses present. Negative for: calf tenderness, joint swelling, pedal edema, tenderness Additional comments: Ecchymosis noted on all extremities. - Neurological Exam Neurological exam: Alert, Oriented x3 - Skin Skin Exam: Dry, Intact, Pallor (extremities cold to touch) Results - Vital Signs Recent Vital Signs: Last Vital Signs Temp 98.3 F 09/02/18 14:40 Pulse 98 H 09/02/18 14:40 Resp 20 09/02/18 14:40 BP 103/57 L 09/02/18 14:40 Pulse Ox 100 09/02/18 14:40 - Labs Result Diagrams: 09/02/18 12:55 09/02/18 12:55 Labs: Laboratory Results - last 24 hr 09/02/18 09/02/18 09/02/18 12:38 12:48 12:55 WBC RBC Hgb Hct MCV MCH MCHC RDW Plt Count MPV Neut % (Auto) Lymph % (Auto) Liberty % (Auto) Eos % (Auto) Baso % (Auto) Neut # (Auto) Lymph # (Auto) [place] # (Auto) Eos # (Auto) Baso # (Auto) PT INR APTT pO2 42 VBG pH 7.43 VBG pCO2 33 L VBG HCO3 23.1 VBG Total CO2 22.9 VBG O2 Sat (Calc) 88.1 H VBG Base Excess -2.0 L VBG Potassium 5.0 Sodium 134.0 134 Chloride 107.0 105 Glucose 124 H Lactate 1.6 FiO2 21.0 Potassium 4.9 Carbon Dioxide 18 L Anion Gap 16 BUN 41 H Creatinine 0.7 Est GFR ( Amer) > 60 Est GFR (Non-Af Amer) > 60 POC Glucose (mg/dL) Random Glucose 119 H Calcium 8.9 Phosphorus 2.7 Magnesium 1.7 Total Bilirubin 0.8 AST 64 H D ALT 210 H D Alkaline Phosphatase 279 H D Lactate Dehydrogenase 781 H Total Protein 7.4 Albumin 4.0 Globulin 3.5 Albumin/Globulin Ratio 1.1 Amylase 106 Lipase 95 Venous Blood Potassium 5.0 Stool Occult Blood Positive H Blood Type Antibody Screen Crossmatch BBK History Checked 09/02/18 09/02/18 09/02/18 12:55 12:55 12:56 WBC 11.2 H RBC 3.68 L Hgb 10.3 L Hct 31.3 L MCV 85.2 MCH 28.1 MCHC 33.0 RDW 14.0 Plt Count 295 MPV 8.6 Neut % (Auto) 81.4 H Lymph % (Auto) 12.3 L Liberty % (Auto) 4.9 Eos % (Auto) 0.5 Baso % (Auto) 0.9 Neut # (Auto) 9.1 H Lymph # (Auto) 1.4 Liberty # (Auto) 0.5 Eos # (Auto) 0.1 Baso # (Auto) 0.1 PT INR APTT pO2 VBG pH VBG pCO2 VBG HCO3 VBG Total CO2 VBG O2 Sat (Calc) VBG Base Excess VBG Potassium Sodium Chloride Glucose Lactate FiO2 Potassium Carbon Dioxide Anion Gap BUN Creatinine Est GFR ( Amer) Est GFR (Non-Af Amer) POC Glucose (mg/dL) 98 Random Glucose Calcium Phosphorus Magnesium Total Bilirubin AST ALT Alkaline Phosphatase Lactate Dehydrogenase Total Protein Albumin Globulin Albumin/Globulin Ratio Amylase Lipase Venous Blood Potassium Stool Occult Blood Blood Type A POSITIVE Antibody Screen Negative Crossmatch See Detail BBK History Checked Patient has bt 09/02/18 13:00 WBC RBC Hgb Hct MCV MCH MCHC RDW Plt Count MPV Neut % (Auto) Lymph % (Auto) Liberty % (Auto) Eos % (Auto) Baso % (Auto) Neut # (Auto) Lymph # (Auto) [place] # (Auto) Eos # (Auto) Baso # (Auto) PT 14.4 H INR 1.3 APTT 29.6 pO2 VBG pH VBG pCO2 VBG HCO3 VBG Total CO2 VBG O2 Sat (Calc) VBG Base Excess VBG Potassium Sodium Chloride Glucose Lactate FiO2 Potassium Carbon Dioxide Anion Gap BUN Creatinine Est GFR ( Amer) Est GFR (Non-Af Amer) POC Glucose (mg/dL) Random Glucose Calcium Phosphorus Magnesium Total Bilirubin AST ALT Alkaline Phosphatase Lactate Dehydrogenase Total Protein Albumin Globulin Albumin/Globulin Ratio Amylase Lipase Venous Blood Potassium Stool Occult Blood Blood Type Antibody Screen Crossmatch BBK History Checked Assessment & Plan - Assessment and Plan (Free Text) Assessment: 42 to female with history of cardiac valve repair (x2- aortic and mitral repair) on lovenox, presented to [facility] ED because of vomiting blood clots admitted for upper GI bleed. 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 Dilated CBD measures 17 mm in diameter. Small filling defect present measuring 6 mm, possibly small calculus. Distal CBD demonstrates abrupt taper; primary or secondary stricture not excluded. Intrahepatic biliary ductal dilatation. Transaminitis - AST/ALT: 64 / 210 - Alk Phos: 279 - LDH: 781 - Trending down since last admission- secondary to choledolithiasis - Trend labs. Mechanical valves - S/P mitral and aortic valve repair - Metoprolol and Lovenox on hold at this time given GI bleed and hypotension DVT prophylaxis - SCD at this time - no anticoagulation at this time given upper GI bleed. <HsiehMin gibobnsLit D - Last Filed: 09/02/18 15:51> Results - Vital Signs Recent Vital Signs: Last Vital Signs Temp 98.3 F 09/02/18 14:40 Pulse 102 H 09/02/18 15:29 Resp 18 09/02/18 15:29 BP 118/67 09/02/18 15:29 Pulse Ox 100 09/02/18 15:29 - Labs Result Diagrams: 09/02/18 12:55 09/02/18 12:55 Labs: Laboratory Results - last 24 hr 09/02/18 09/02/18 09/02/18 12:38 12:48 12:55 WBC RBC Hgb Hct MCV MCH MCHC RDW Plt Count MPV Neut % (Auto) Lymph % (Auto) Liberty % (Auto) Eos % (Auto) Baso % (Auto) Neut # (Auto) Lymph # (Auto) [place] # (Auto) Eos # (Auto) Baso # (Auto) PT INR APTT pO2 42 VBG pH 7.43 VBG pCO2 33 L VBG HCO3 23.1 VBG Total CO2 22.9 VBG O2 Sat (Calc) 88.1 H VBG Base Excess -2.0 L VBG Potassium 5.0 Sodium 134.0 134 Chloride 107.0 105 Glucose 124 H Lactate 1.6 FiO2 21.0 Potassium 4.9 Carbon Dioxide 18 L Anion Gap 16 BUN 41 H Creatinine 0.7 Est GFR ( Amer) > 60 Est GFR (Non-Af Amer) > 60 POC Glucose (mg/dL) Random Glucose 119 H Calcium 8.9 Phosphorus 2.7 Magnesium 1.7 Total Bilirubin 0.8 AST 64 H D ALT 210 H D Alkaline Phosphatase 279 H D Lactate Dehydrogenase 781 H Total Protein 7.4 Albumin 4.0 Globulin 3.5 Albumin/Globulin Ratio 1.1 Amylase 106 Lipase 95 Venous Blood Potassium 5.0 Stool Occult Blood Positive H Blood Type Antibody Screen Crossmatch BBK History Checked 09/02/18 09/02/18 09/02/18 12:55 12:55 12:56 WBC 11.2 H RBC 3.68 L Hgb 10.3 L Hct 31.3 L MCV 85.2 MCH 28.1 MCHC 33.0 RDW 14.0 Plt Count 295 MPV 8.6 Neut % (Auto) 81.4 H Lymph % (Auto) 12.3 L Liberty % (Auto) 4.9 Eos % (Auto) 0.5 Baso % (Auto) 0.9 Neut # (Auto) 9.1 H Lymph # (Auto) 1.4 Liberty # (Auto) 0.5 Eos # (Auto) 0.1 Baso # (Auto) 0.1 PT INR APTT pO2 VBG pH VBG pCO2 VBG HCO3 VBG Total CO2 VBG O2 Sat (Calc) VBG Base Excess VBG Potassium Sodium Chloride Glucose Lactate FiO2 Potassium Carbon Dioxide Anion Gap BUN Creatinine Est GFR ( Amer) Est GFR (Non-Af Amer) POC Glucose (mg/dL) 98 Random Glucose Calcium Phosphorus Magnesium Total Bilirubin AST ALT Alkaline Phosphatase Lactate Dehydrogenase Total Protein Albumin Globulin Albumin/Globulin Ratio Amylase Lipase Venous Blood Potassium Stool Occult Blood Blood Type A POSITIVE Antibody Screen Negative Crossmatch See Detail BBK History Checked Patient has bt 09/02/18 13:00 WBC RBC Hgb Hct MCV MCH MCHC RDW Plt Count MPV Neut % (Auto) Lymph % (Auto) Liberty % (Auto) Eos % (Auto) Baso % (Auto) Neut # (Auto) Lymph # (Auto) Liberty # (Auto) Eos # (Auto) Baso # (Auto) PT 14.4 H INR 1.3 APTT 29.6 pO2 VBG pH VBG pCO2 VBG HCO3 VBG Total CO2 VBG O2 Sat (Calc) VBG Base Excess VBG Potassium Sodium Chloride Glucose Lactate FiO2 Potassium Carbon Dioxide Anion Gap BUN Creatinine Est GFR ( Amer) Est GFR (Non-Af Amer) POC Glucose (mg/dL) Random Glucose Calcium Phosphorus Magnesium Total Bilirubin AST ALT Alkaline Phosphatase Lactate Dehydrogenase Total Protein Albumin Globulin Albumin/Globulin Ratio Amylase Lipase Venous Blood Potassium Stool Occult Blood Blood Type Antibody Screen Crossmatch BBK History Checked Attending/Attestation - Attestation I have personally seen and examined this patient.: Yes I have fully participated in the care of the patient.: Yes I have reviewed all pertinent clinical information: Yes Notes (Text): 09/02/18 15:50 Patient seen and examined with resident. Case discussed and agreed with as sessment and plan of management.
--- NOTE | 2018-09-02 15:19 | CP.PCM.CON ---
History of Present Illness - History of Present Illness History of Present Illness: Patient was seen in ER room 8, d/w ER physician and also with patient's two daughters in the room. Patient is a 42 y/o female with a PMHx of pneumonia, rheumatic disease, and choledocholithiasis who presents to the ED for evaluation of vomiting with episodes of blood and clots onset started this morning. As per her daughter , patient complains of extreme lightheadedness and nausea. Patient reports two days ago she was discharged from [place] ED after being admitted and treated for choledocholithiasis. Patient claimed she felt better and was tolerating food well at that time. Patient states she was also felt fine yesterday. Patient was on Coumadin for rheumatic disease and valve replacement. Since hospitalization patient changed to Lovenox for planned cholecystectomy on 09/04/18. Patient denies stomach pain, diarrhea, and black or bloody stools. Review of Systems - Review of Systems Systems not reviewed;Unavailable: Unstable Vital Signs - Constitutional Constitutional: As Per HPI - EENT Eyes: As Per HPI Ears: As Per HPI Nose/Mouth/Throat: As Per HPI - Cardiovascular Cardiovascular: Rapid Heart Rate - Gastrointestinal Gastrointestinal: As Per HPI, Abdominal Pain, Change in Bowel Habits, Coffee Ground Emesis Past Patient History - Past Social History Alcohol: None Drugs: Denies - CARDIAC Hx Cardiac Disorders: Yes Hx Heart Murmur: Yes Other/Comment: cardiac valve repair, rheumatic disease - PULMONARY Hx Pneumonia: Yes - NEUROLOGICAL Hx Neurological Disorder: No - HEENT Hx HEENT Problems: No - RENAL Hx Chronic Kidney Disease: No - ENDOCRINE/METABOLIC Hx Endocrine Disorders: No - HEMATOLOGICAL/ONCOLOGICAL Hx Human Immunodeficiency Virus (HIV): No - INTEGUMENTARY Hx Dermatological Problems: No - MUSCULOSKELETAL/RHEUMATOLOGICAL Hx Musculoskeletal Disorders: No - GASTROINTESTINAL Hx Gastrointestinal Disorders: No - GENITOURINARY/GYNECOLOGICAL Hx Genitourinary Disorders: No - PSYCHIATRIC Hx Psychophysiologic Disorder: No Hx Substance Use: No - SURGICAL HISTORY Hx Cholecystectomy: Yes - ANESTHESIA Hx Anesthesia: Yes Hx Anesthesia Reactions: No Meds Allergies/Adverse Reactions: Allergies Allergy/AdvReac Type Severity Reaction Status Date / Time No Known Allergies Allergy Verified 09/02/18 12:26 - Medications Medications: Current Medications Pantoprazole Sodium 40 mg/ (Sodium Chloride) 100 mls @ 20 mls/hr IVPB STAT STA Stop: 09/02/18 17:46 Last Admin: 09/02/18 13:53 Dose: 20 mls/hr Ondansetron HCl (Zofran Inj) 4 mg IVP Q6H PRN PRN Reason: Nausea/Vomiting Physical Exam - Head Exam Head Exam: NORMAL INSPECTION - Eye Exam Eye Exam: Normal appearance - ENT Exam ENT Exam: Mucous Membranes Moist - Neck Exam Neck exam: Positive for: Full Rom - Respiratory Exam Respiratory Exam: NORMAL BREATHING PATTERN - Cardiovascular Exam Cardiovascular Exam: REGULAR RHYTHM Results - Vital Signs Recent Vital Signs: Last Vital Signs Temp 98.3 F 09/02/18 14:40 Pulse 98 H 09/02/18 14:40 Resp 20 09/02/18 14:40 BP 103/57 L 09/02/18 14:40 Pulse Ox 100 09/02/18 15:03 - Labs Result Diagrams: 09/02/18 12:55 09/02/18 12:55 Labs: Laboratory Results - last 24 hr 09/02/18 09/02/18 09/02/18 12:38 12:48 12:55 WBC RBC Hgb Hct MCV MCH MCHC RDW Plt Count MPV Neut % (Auto) Lymph % (Auto) [place] % (Auto) Eos % (Auto) Baso % (Auto) Neut # (Auto) Lymph # (Auto) [place] # (Auto) Eos # (Auto) Baso # (Auto) PT INR APTT pO2 42 VBG pH 7.43 VBG pCO2 33 L VBG HCO3 23.1 VBG Total CO2 22.9 VBG O2 Sat (Calc) 88.1 H VBG Base Excess -2.0 L VBG Potassium 5.0 Sodium 134.0 134 Chloride 107.0 105 Glucose 124 H Lactate 1.6 FiO2 21.0 Potassium 4.9 Carbon Dioxide 18 L Anion Gap 16 BUN 41 H Creatinine 0.7 Est GFR ( Amer) > 60 Est GFR (Non-Af Amer) > 60 POC Glucose (mg/dL) Random Glucose 119 H Calcium 8.9 Phosphorus 2.7 Magnesium 1.7 Total Bilirubin 0.8 AST 64 H D ALT 210 H D Alkaline Phosphatase 279 H D Lactate Dehydrogenase 781 H Total Protein 7.4 Albumin 4.0 Globulin 3.5 Albumin/Globulin Ratio 1.1 Amylase 106 Lipase 95 Venous Blood Potassium 5.0 Stool Occult Blood Positive H Blood Type Antibody Screen Crossmatch BBK History Checked 09/02/18 09/02/18 09/02/18 12:55 12:55 12:56 WBC 11.2 H RBC 3.68 L Hgb 10.3 L Hct 31.3 L MCV 85.2 MCH 28.1 MCHC 33.0 RDW 14.0 Plt Count 295 MPV 8.6 Neut % (Auto) 81.4 H Lymph % (Auto) 12.3 L [place] % (Auto) 4.9 Eos % (Auto) 0.5 Baso % (Auto) 0.9 Neut # (Auto) 9.1 H Lymph # (Auto) 1.4 [place] # (Auto) 0.5 Eos # (Auto) 0.1 Baso # (Auto) 0.1 PT INR APTT pO2 VBG pH VBG pCO2 VBG HCO3 VBG Total CO2 VBG O2 Sat (Calc) VBG Base Excess VBG Potassium Sodium Chloride Glucose Lactate FiO2 Potassium Carbon Dioxide Anion Gap BUN Creatinine Est GFR ( Amer) Est GFR (Non-Af Amer) POC Glucose (mg/dL) 98 Random Glucose Calcium Phosphorus Magnesium Total Bilirubin AST ALT Alkaline Phosphatase Lactate Dehydrogenase Total Protein Albumin Globulin Albumin/Globulin Ratio Amylase Lipase Venous Blood Potassium Stool Occult Blood Blood Type A POSITIVE Antibody Screen Negative Crossmatch See Detail BBK History Checked Patient has bt 09/02/18 13:00 WBC RBC Hgb Hct MCV MCH MCHC RDW Plt Count MPV Neut % (Auto) Lymph % (Auto) [place] % (Auto) Eos % (Auto) Baso % (Auto) Neut # (Auto) Lymph # (Auto) [place] # (Auto) Eos # (Auto) Baso # (Auto) PT 14.4 H INR 1.3 APTT 29.6 pO2 VBG pH VBG pCO2 VBG HCO3 VBG Total CO2 VBG O2 Sat (Calc) VBG Base Excess VBG Potassium Sodium Chloride Glucose Lactate FiO2 Potassium Carbon Dioxide Anion Gap BUN Creatinine Est GFR ( Amer) Est GFR (Non-Af Amer) POC Glucose (mg/dL) Random Glucose Calcium Phosphorus Magnesium Total Bilirubin AST ALT Alkaline Phosphatase Lactate Dehydrogenase Total Protein Albumin Globulin Albumin/Globulin Ratio Amylase Lipase Venous Blood Potassium Stool Occult Blood Blood Type Antibody Screen Crossmatch BBK History Checked Assessment & Plan - Assessment and Plan (Free Text) Assessment: 1-Upper GIB 2-Anemia 3-Dizziness 4-HTN 5-h/o Rheumatic heart disease PLAN: Serial H&H Will transfuse, if needed CBC PTT Prothrombin Time IV Fluids Protonix Inj 40 mg Sodium Chloride 0.9% Protonix Inj 80 mg IVP Occult Blood, Stool [employer], following, No AG at this point.
--- NOTE | 2018-09-02 16:44 | CP.PCM.CON ---
<Axel Juan - Last Filed: 09/02/18 20:48> History of Present Illness - History of Present Illness History of Present Illness: Surgery Consult Note- Dr. Ortega Reason for Consult: Choledochal Cyst 42F known to our service recently admitted for Cholangitits found to have Choledochal cyst presents to [facility] ED today for Hematemsis and near syncope. Patient admits to dizziness. During examination in ICU patient had large dark melanotic bowel movement. Previous admission concerned for Cholangitis and was found to have Choledochal Cyst. Patient was bridged to therapeutic Lovenox 80 BI D and discharged home for elective surgery. Currently AAOx3 GCS 15. non-focal. HR 80-90. ICU plans for transfusion of 2uPRBC Denies: fevers, chills, chest pain, shortness of breath, changes in urinary habits, sudden changes in vision NGT placed at bedside: Lavage negative PMH: Cardiac Valve repair X2( mitral, aortic), RA PSH: Cholecystectomy (2000), Cardiac Valve repair (2000), Open heart surgery (24 years ago) ALL: NKDA SocialHx: denies tobacco, etoh, recreational drug use FH: CAD, liver disease Review of Systems - Review of Systems All systems: reviewed and no additional remarkable complaints except - Constitutional Constitutional: As Per HPI Past Patient History - Past Social History Alcohol: None Drugs: Denies - CARDIAC Hx Cardiac Disorders: Yes Hx Heart Murmur: Yes Other/Comment: cardiac valve repair, rheumatic disease - PULMONARY Hx Pneumonia: Yes - NEUROLOGICAL Hx Neurological Disorder: No - HEENT Hx HEENT Problems: No - RENAL Hx Chronic Kidney Disease: No - ENDOCRINE/METABOLIC Hx Endocrine Disorders: No - HEMATOLOGICAL/ONCOLOGICAL Hx Human Immunodeficiency Virus (HIV): No - INTEGUMENTARY Hx Dermatological Problems: No - MUSCULOSKELETAL/RHEUMATOLOGICAL Hx Musculoskeletal Disorders: No - GASTROINTESTINAL Hx Gastrointestinal Disorders: No - GENITOURINARY/GYNECOLOGICAL Hx Genitourinary Disorders: No - PSYCHIATRIC Hx Psychophysiologic Disorder: No Hx Substance Use: No - SURGICAL HISTORY Hx Cholecystectomy: Yes - ANESTHESIA Hx Anesthesia: Yes Hx Anesthesia Reactions: No Meds Allergies/Adverse Reactions: Allergies Allergy/AdvReac Type Severity Reaction Status Date / Time No Known Allergies Allergy Verified 09/02/18 12:26 - Medications Medications: Current Medications Pantoprazole Sodium 40 mg/ (Sodium Chloride) 100 mls @ 20 mls/hr IVPB STAT STA Stop: 09/02/18 17:46 Last Admin: 09/02/18 13:53 Dose: 20 mls/hr Ondansetron HCl (Zofran Inj) 4 mg IVP Q6H PRN PRN Reason: Nausea/Vomiting Physical Exam - Constitutional Appears: Non-toxic, No Acute Distress, Chronically Ill - Head Exam Head Exam: ATRAUMATIC - Eye Exam Eye Exam: EOMI. absent: Scleral icterus - ENT Exam ENT Exam: Mucous Membranes Dry - Respiratory Exam Respiratory Exam: NORMAL BREATHING PATTERN. absent: Accessory Muscle Use, Respiratory Distress - Cardiovascular Exam Cardiovascular Exam: REGULAR RHYTHM. absent: Bradycardia, Tachycardia - GI/Abdominal Exam GI & Abdominal Exam: Soft, Tenderness (midly tender mid-abdomen). absent: Distended, Firm, Guarding, Hernia, Rigid - Rectal Exam Rectal Exam: Black Stool Additional comments: Good tone, dark melanotic stool BM during examination - Extremities Exam Extremities exam: Negative for: calf tenderness - Neurological Exam Neurological exam: Alert, Oriented x3 - Psychiatric Exam Psychiatric exam: Normal Affect - Skin Skin Exam: Dry, Intact Results - Vital Signs Recent Vital Signs: Last Vital Signs Temp 98.3 F 09/02/18 15:56 Pulse 102 H 09/02/18 15:56 Resp 18 09/02/18 15:56 BP 118/67 09/02/18 15:56 Pulse Ox 100 09/02/18 15:56 - Labs Result Diagrams: 09/02/18 16:40 09/02/18 12:55 Labs: Laboratory Results - last 24 hr 09/02/18 09/02/18 09/02/18 12:38 12:48 12:55 WBC RBC Hgb Hct MCV MCH MCHC RDW Plt Count MPV Neut % (Auto) Lymph % (Auto) [place] % (Auto) Eos % (Auto) Baso % (Auto) Neut # (Auto) Lymph # (Auto) [place] # (Auto) Eos # (Auto) Baso # (Auto) PT INR APTT pO2 42 VBG pH 7.43 VBG pCO2 33 L VBG HCO3 23.1 VBG Total CO2 22.9 VBG O2 Sat (Calc) 88.1 H VBG Base Excess -2.0 L VBG Potassium 5.0 Sodium 134.0 134 Chloride 107.0 105 Glucose 124 H Lactate 1.6 FiO2 21.0 Potassium 4.9 Carbon Dioxide 18 L Anion Gap 16 BUN 41 H Creatinine 0.7 Est GFR ( Amer) > 60 Est GFR (Non-Af Amer) > 60 POC Glucose (mg/dL) Random Glucose 119 H Calcium 8.9 Phosphorus 2.7 Magnesium 1.7 Total Bilirubin 0.8 AST 64 H D ALT 210 H D Alkaline Phosphatase 279 H D Lactate Dehydrogenase 781 H Total Protein 7.4 Albumin 4.0 Globulin 3.5 Albumin/Globulin Ratio 1.1 Amylase 106 Lipase 95 Venous Blood Potassium 5.0 Stool Occult Blood Positive H Blood Type Antibody Screen Crossmatch BBK History Checked 09/02/18 09/02/18 09/02/18 12:55 12:55 12:56 WBC 11.2 H RBC 3.68 L Hgb 10.3 L Hct 31.3 L MCV 85.2 MCH 28.1 MCHC 33.0 RDW 14.0 Plt Count 295 MPV 8.6 Neut % (Auto) 81.4 H Lymph % (Auto) 12.3 L [place] % (Auto) 4.9 Eos % (Auto) 0.5 Baso % (Auto) 0.9 Neut # (Auto) 9.1 H Lymph # (Auto) 1.4 [place] # (Auto) 0.5 Eos # (Auto) 0.1 Baso # (Auto) 0.1 PT INR APTT pO2 VBG pH VBG pCO2 VBG HCO3 VBG Total CO2 VBG O2 Sat (Calc) VBG Base Excess VBG Potassium Sodium Chloride Glucose Lactate FiO2 Potassium Carbon Dioxide Anion Gap BUN Creatinine Est GFR ( Amer) Est GFR (Non-Af Amer) POC Glucose (mg/dL) 98 Random Glucose Calcium Phosphorus Magnesium Total Bilirubin AST ALT Alkaline Phosphatase Lactate Dehydrogenase Total Protein Albumin Globulin Albumin/Globulin Ratio Amylase Lipase Venous Blood Potassium Stool Occult Blood Blood Type A POSITIVE Antibody Screen Negative Crossmatch See Detail BBK History Checked Patient has bt 09/02/18 13:00 WBC RBC Hgb Hct MCV MCH MCHC RDW Plt Count MPV Neut % (Auto) Lymph % (Auto) [place] % (Auto) Eos % (Auto) Baso % (Auto) Neut # (Auto) Lymph # (Auto) [place] # (Auto) Eos # (Auto) Baso # (Auto) PT 14.4 H INR 1.3 APTT 29.6 pO2 VBG pH VBG pCO2 VBG HCO3 VBG Total CO2 VBG O2 Sat (Calc) VBG Base Excess VBG Potassium Sodium Chloride Glucose Lactate FiO2 Potassium Carbon Dioxide Anion Gap BUN Creatinine Est GFR ( Amer) Est GFR (Non-Af Amer) POC Glucose (mg/dL) Random Glucose Calcium Phosphorus Magnesium Total Bilirubin AST ALT Alkaline Phosphatase Lactate Dehydrogenase Total Protein Albumin Globulin Albumin/Globulin Ratio Amylase Lipase Venous Blood Potassium Stool Occult Blood Blood Type Antibody Screen Crossmatch BBK History Checked Assessment & Plan - Assessment and Plan (Free Text) Assessment: 42F w/ choledochal cyst, admitted for GI bleed Bedside NGT Lavage Negative Plan: - admitted to ICU - maintain O2 saturation > 88% - MAP > 65 - NPO - IVF - Strict I/O - daily weights - hold AC and blood thinners - monitor H/H - transfuse PRN - if continues to bleed recommend bleeding scan vs CTA to localize bleeding - plan for OR at a later date once GI bleed resolves - further recs per Dr. Ortega Surgical attending PGY2 <Rusty Schneider - Last Filed: 09/04/18 21:31> Meds - Medications Medications: Current Medications Famotidine (Pepcid) 20 mg IVP Q12 [facility] Sodium Chloride (Sodium Chloride 0.9%) 500 mls @ 1,000 mls/hr IV .Q30M [facility] Last Admin: 09/03/18 04:00 Dose: 1,000 mls/hr Lactated Ringer's (Lactated Ringer's) 1,000 mls @ 150 mls/hr IV .Q6H40M [facility] Last Admin: 09/04/18 08:45 Dose: 150 mls/hr Ondansetron HCl (Zofran Inj) 4 mg IVP Q6H PRN PRN Reason: Nausea/Vomiting Results - Vital Signs Recent Vital Signs: Last Vital Signs Temp 98.6 F 09/04/18 16:00 Pulse 91 H 09/04/18 20:00 Resp 12 09/04/18 20:00 BP 108/59 L 09/04/18 20:00 Pulse Ox 98 09/04/18 20:00 - Labs Result Diagrams: 09/04/18 15:06 09/04/18 15:06 Labs: Laboratory Results - last 24 hr 09/04/18 09/04/1819 04:21 04:21 08:15 WBC 9.7 RBC 2.97 L Hgb 8.8 L Hct 24.9 L MCV 83.7 MCH 29.6 MCHC 35.3 RDW 14.2 Plt Count 120 L PT INR APTT Sodium 135 Potassium 3.7 Chloride 104 Carbon Dioxide 28 Anion Gap 7 L BUN 14 Creatinine 0.7 Est GFR ( Amer) > 60 Est GFR (Non-Af Amer) > 60 Random Glucose 91 Calcium 7.8 L Phosphorus Magnesium Total Bilirubin 0.5 Direct Bilirubin 0.2 AST 42 H D ALT 88 H D Alkaline Phosphatase 108 Total Protein 5.0 L Albumin 2.6 L D Globulin 2.4 Albumin/Globulin Ratio 1.1 09/04/18 09/04/18 09/04/18 15:06 15:06 15:06 WBC 9.8 RBC 3.07 L Hgb 9.0 L Hct 25.8 L MCV 83.9 MCH 29.1 MCHC 34.7 RDW 14.1 Plt Count 125 L PT 13.3 H INR 1.2 APTT 27.0 Sodium 135 Potassium 3.5 L Chloride 101 Carbon Dioxide 29 Anion Gap 9 L BUN 10 Creatinine 0.7 Est GFR ( Amer) > 60 Est GFR (Non-Af Amer) > 60 Random Glucose 86 Calcium 8.0 L Phosphorus 3.5 Magnesium 1.4 L Total Bilirubin 0.6 Direct Bilirubin 0.3 AST 36 ALT 87 H Alkaline Phosphatase 97 Total Protein 5.3 L Albumin 2.7 L Globulin 2.5 Albumin/Globulin Ratio 1.1 Assessment & Plan - Assessment and Plan (Free Text) Plan: All medical record entries made by the resident were at my direction. I have reviewed the chart and agree that the record accurately reflects my personal performance of the history, physical exam, and medical decision making.
[2018-09-02 16:56] LABS: MEAN CELL VOLUME 85.5 fl (81.0-99.0); MEAN CORPUSCULAR HEMOGLOBIN 27.8 pg (27.0-31.0); MEAN CORPUSCULAR HGB CONC 32.5 g/dL (33.0-37.0); RBC 2.57 Mil/uL (3.80-5.20); RED CELL DISTRIBUTION WIDTH 13.9 % (11.5-14.5)
[2018-09-02] MEDS ORDERED: Lactated Ringer's 1,000 ML IV SCH (17:15)
[2018-09-02 17:20] LABS: HEMOGLOBIN 7.1 g/dL (12.0-16.0)
[2018-09-02] MEDS ORDERED: Protamine 50mg/5mL Inj IV ONE (18:54)
[2018-09-02] MEDS ORDERED: Chlorhexidine Gluconate 1 APPL/PKT TP ONE (19:53)
[2018-09-02] MEDS: Pantoprazole 40 MG in Sodium Chloride 0.9% 100 ML IVPB SCH (20:38)
--- NOTE | 2018-09-02 21:24 | CARD ---
APPROVED REPORT Date of service: 09/02/2018 EKG Measurement Heart [id number] <Conclusion> Normal sinus rhythm T wave abnormality, consider inferior ischemia Abnormal ECG
[2018-09-03 00:39] LABS: BASO % 0.2 % (0.0-2.0); EOS % 0.2 % (0.0-4.0); LYMPH # 1.4 K/uL (1.0-4.3); LYMPH % 8.8 % (20.0-40.0); MEAN CELL VOLUME 83.5 fl (81.0-99.0); MEAN CORPUSCULAR HEMOGLOBIN 27.9 pg (27.0-31.0); MEAN CORPUSCULAR HGB CONC 33.4 g/dL (33.0-37.0); MEAN PLATELET VOLUME 8.3 fl (7.2-11.7); MONO # 0.9 K/uL (0.0-0.8); MONO % 5.4 % (0.0-10.0); NEUT # 13.8 K/uL (1.8-7.0); NEUT % 85.4 % (50.0-75.0); PLATELET COUNT 207 K/uL (130-400); RBC 3.29 Mil/uL (3.80-5.20); RED CELL DISTRIBUTION WIDTH 14.2 % (11.5-14.5); WHITE BLOOD COUNT 16.1 K/uL (4.8-10.8)
[2018-09-03 00:40] LABS: HEMOGLOBIN 9.2 g/dL (12.0-16.0)
[2018-09-03] MEDS: Pantoprazole 40 MG in Sodium Chloride 0.9% 100 ML IVPB SCH ×5 (00:50→21:00)
[2018-09-03 01:07] LABS: ANISOCYTOSIS SLIGHT; BANDS 1 % (0-2); HYPOCHROMIC SLIGHT; LYMPHOCYTE 8 % (20-50); MONOCYTE 8 % (0-10); NEUTROPHIL 83 % (42-75); PLATELET ESTIMATE NORMAL (NORMAL); POIKILOCYTOSIS SLIGHT; TOTAL CELLS COUNTED 100; TOXIC GRANULATION PRESENT
[2018-09-03 01:09] LABS: BURR CELLS SLIGHT; TARGET CELLS SLIGHT
[2018-09-03] MEDS ORDERED: Sodium Chloride 0.9% 500 ML IV SCH (04:00)
[2018-09-03] MEDS: Lactated Ringer's 1,000 ML IV SCH ×3 (04:48→19:05)
[2018-09-03 06:50] LABS: BASO % 0.2 % (0.0-2.0); EOS % 0.1 % (0.0-4.0); HEMOGLOBIN 7.6 g/dL (12.0-16.0); LYMPH # 1.3 K/uL (1.0-4.3); LYMPH % 7.9 % (20.0-40.0); MEAN CELL VOLUME 84.6 fl (81.0-99.0); MEAN CORPUSCULAR HEMOGLOBIN 28.2 pg (27.0-31.0); MEAN CORPUSCULAR HGB CONC 33.3 g/dL (33.0-37.0); MEAN PLATELET VOLUME 8.9 fl (7.2-11.7); MONO # 0.8 K/uL (0.0-0.8); MONO % 4.7 % (0.0-10.0); NEUT # 14.2 K/uL (1.8-7.0); NEUT % 87.1 % (50.0-75.0); RBC 2.7 Mil/uL (3.80-5.20); RED CELL DISTRIBUTION WIDTH 14.4 % (11.5-14.5); WHITE BLOOD COUNT 16.3 K/uL (4.8-10.8)
[2018-09-03 07:11] LABS: BLOOD UREA NITROGEN 33 mg/dl (7-17); CALCIUM 7.4 mg/dL (8.4-10.2); GFR NON-AFRICAN AMERICAN > 60
[2018-09-03] MEDS ORDERED: Lidocaine 2% MPF (5 ml) Inj ONE (09:10)
[2018-09-03] MEDS ORDERED: Propofol 10 mg/ml Inj (20 ML) ONE (09:11)
[2018-09-03] MEDS ORDERED: Etomidate 20 mg/10ml Inj IV ONE (09:11)
[2018-09-03] MEDS ORDERED: ePHEDrine 50 mg/ml Inj ONE (09:12)
[2018-09-03] MEDS ORDERED: EPINEPHrine 1 mg/ml (1:1000) Inj ONE (09:15)
[2018-09-03] MEDS ORDERED: Sodium Chloride 0.9% 1,000 ML IV ONE (09:35)
--- NOTE | 2018-09-03 09:44 | PCM.PROC ---
Procedures Attestation:: I certify that I have explained the specified Operation(s) or Procedure(s), risks, benefits and reasonable alternatives to the Patient and/or other person responsible. The opportunity was given to ask questions and all questions answered - Central Line Placement Right Internal Jugular Triple Lumen Catheter Aseptic technique was employed throughout the procedure: Hand Hygiene done prior to procedure, Full sterile barriers (mask, hair cover, sterile gown, sterile gloves), Full body sterile drape, Chloraprep Antiseptic: 30 second prep for IJ or SC sites CVP Time Out Performed: Yes Pt. Placed on Pulse Ox Monitor: Yes Central Line Prep: Chlorhexidine-Alcohol Combination Local Anesthesia Used: Lidocaine 1% Amount of Anesthesia Used (mls): 3 Ultrasound Used for Placement: Yes Central Line Lumen Inserted: triple Central Line Length: 20 cm (secured at 16cm at the level of the skin) Post Procedure: Sutured in Place, Good Blood Return, All Ports Aspirated, Flushed, Capped, Sterile Dressing Applied Secured by: Suture Post procedure dressing: Clear vapor permeable, Chlorhexidine disc (Biopatch) Patient Tolerated Procedure: Well, No Complications Immediate Complications: None
--- NOTE | 2018-09-03 10:14 | CP.PCM.PN ---
<Jose Mclean - Last Filed: 09/03/18 10:19> Subjective - Date & Time of Evaluation Date of Evaluation: 09/03/18 Time of Evaluation: 10:19 - Subjective Subjective: HBP Surgery Note for Dr. Ortega Patient seen and examined at bedside. Overnight, patient had three episodes of melanotic stool and one episode of hematemesis. NGT with 350cc of serosanguinous/bilious output. Marte with 650 cc since insertion. Patient received 2u PRBC yesterday. Hgb 10.3 to 7.1 to 9.2 then back to 7.6 this AM. She is receiving 2u pRBC and 2u FFP today. Endoscopy at 930 AM. Patient feels weak but denies abd pain. Objective - Vital Signs/Intake and Output Vital Signs (last 24 hours): Temp Pulse Resp BP Pulse Ox 98.8 F 102 H 15 103/47 L 100 09/03/18 08:23 09/03/18 08:23 09/03/18 08:23 09/03/18 08:23 09/03/18 08:00 Intake and Output: 09/03/18 09/03/18 06:59 18:59 Intake Total 2395 310 Output Total 1001 Balance 1394 310 - Medications Medications: Current Medications Pantoprazole Sodium 40 mg/ (Sodium Chloride) 100 mls @ 50 mls/hr IVPB Q5H [facility] Last Admin: 09/03/18 05:50 Dose: 50 mls/hr Sodium Chloride (Sodium Chloride 0.9%) 500 mls @ 1,000 mls/hr IV .Q30M [facility] Last Admin: 09/03/18 04:00 Dose: 1,000 mls/hr Lactated Ringer's (Lactated Ringer's) 1,000 mls @ 150 mls/hr IV .Q6H40M [facility] Last Admin: 09/03/18 04:48 Dose: 150 mls/hr Ondansetron HCl (Zofran Inj) 4 mg IVP Q6H PRN PRN Reason: Nausea/Vomiting - Labs Labs: 09/03/18 04:25 09/03/18 04:25 PT 14.4 Seconds (9.8-13.1) H 09/02/18 13:00 INR 1.3 09/02/18 13:00 APTT 29.6 Seconds (25.6-37.1) 09/02/18 13:00 - Additional Findings Additional findings: - Constitutional Appears: toxic, No Acute Distress - Head Exam Head Exam: ATRAUMATIC - Eye Exam Eye Exam: EOMI. absent: Scleral icterus - ENT Exam ENT Exam: Mucous Membranes Dry - Respiratory Exam Respiratory Exam: NORMAL BREATHING PATTERN. absent: Accessory Muscle Use, Respiratory Distress - Cardiovascular Exam Cardiovascular Exam: REGULAR RHYTHM. absent: Bradycardia, Tachycardia - GI/Abdominal Exam GI & Abdominal Exam: Soft, Tenderness (midly tender mid-abdomen). 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 Collins PGY2 <Rusty Schneider - Last Filed: 09/04/18 21:30> Objective - Vital Signs/Intake and Output Vital Signs (last 24 hours): Temp Pulse Resp BP Pulse Ox 98.6 F 91 H 12 108/59 L 98 09/04/18 16:00 09/04/18 20:00 09/04/18 20:00 09/04/18 20:00 09/04/18 20:00 Intake and Output: 09/04/18 09/05/18 18:59 06:59 Intake Total 2050 60 Output Total 3300 Balance -1250 60 - Medications Medications: Current Medications Famotidine (Pepcid) 20 mg IVP Q12 [facility] Sodium Chloride (Sodium Chloride 0.9%) 500 mls @ 1,000 mls/hr IV .Q30M [facility] Last Admin: 09/03/18 04:00 Dose: 1,000 mls/hr Lactated Ringer's (Lactated Ringer's) 1,000 mls @ 150 mls/hr IV .Q6H40M [facility] Last Admin: 09/04/18 08:45 Dose: 150 mls/hr Ondansetron HCl (Zofran Inj) 4 mg IVP Q6H PRN PRN Reason: Nausea/Vomiting - Labs Labs: 09/04/18 15:06 09/04/18 15:06 PT 13.3 Seconds (9.8-13.1) H 09/04/18 15:06 INR 1.2 09/04/18 15:06 APTT 27.0 Seconds (25.6-37.1) 09/04/18 15:06 Assessment and Plan - Assessment and Plan (Free Text) Assessment: All medical record entries made by the resident were at my direction. I have reviewed the chart and agree that the record accurately reflects my personal performance of the history, physical exam, and medical decision making.
--- NOTE | 2018-09-03 11:18 | RAD ---
Date of service: 09/03/2018 HISTORY: TLC placement COMPARISON: Portable chest 09/02/2018. TECHNIQUE: 1 view obtained. FINDINGS: LUNGS: Nasogastric tube is unchanged in position. An intervalcentral venous catheter is been placed by an apparent right internal jugular approach with the tip turning at the cavoatrial junction. PLEURA: No significant pleural effusion identified, no pneumothorax apparent. CARDIOVASCULAR: No aortic atherosclerotic calcification present. Normal cardiac size. No pulmonary vascular congestion. OSSEOUS STRUCTURES: No significant abnormalities. VISUALIZED UPPER ABDOMEN: Surgical clips again noted right upper quadrant abdomen. OTHER FINDINGS: None. IMPRESSION: Interval right central venous catheter deployment in good apparent position. Stable nasogastric tube placement. No acute cardiopulmonary disease appreciable.
--- NOTE | 2018-09-03 11:24 | CP.PCM.PN ---
<Yarelis Ford - Last Filed: 09/03/18 11:18> Subjective - Date & Time of Evaluation Date of Evaluation: 09/03/18 Time of Evaluation: 10:00 - Subjective Subjective: Patient asleep on exam s/p endoscopy. No acute events overnight. Received 2 units pRBC overnight. Receiving 2 more units pRBC today and 2 units of FFP. Objective - Vital Signs/Intake and Output Vital Signs (last 24 hours): Temp Pulse Resp BP Pulse Ox 98.2 F 91 H 20 101/78 100 09/03/18 10:53 09/03/18 10:53 09/03/18 10:53 09/03/18 10:53 09/03/18 10:30 Intake and Output: 09/03/18 09/03/18 06:59 18:59 Intake Total 2395 160 Output Total 1001 Balance 1394 160 - Medications Medications: Current Medications Pantoprazole Sodium 40 mg/ (Sodium Chloride) 100 mls @ 50 mls/hr IVPB Q5H [facility] Last Admin: 09/03/18 11:01 Dose: 50 mls/hr Sodium Chloride (Sodium Chloride 0.9%) 500 mls @ 1,000 mls/hr IV .Q30M [facility] Last Admin: 09/03/18 04:00 Dose: 1,000 mls/hr Lactated Ringer's (Lactated Ringer's) 1,000 mls @ 150 mls/hr IV .Q6H40M [facility] Last Admin: 09/03/18 11:02 Dose: 150 mls/hr Ondansetron HCl (Zofran Inj) 4 mg IVP Q6H PRN PRN Reason: Nausea/Vomiting - Labs Labs: 09/03/18 04:25 09/03/18 04:25 PT 14.4 Seconds (9.8-13.1) H 09/02/18 13:00 INR 1.3 09/02/18 13:00 APTT 29.6 Seconds (25.6-37.1) 09/02/18 13:00 - Constitutional Appears: No Acute Distress - Eye Exam Eye Exam: Normal appearance - ENT Exam ENT Exam: Mucous Membranes Moist - Respiratory Exam Respiratory Exam: Clear to Ausculation Bilateral, NORMAL BREATHING PATTERN. absent: Accessory Muscle Use, Chest Wall Tenderness, Decreased Breath Sounds, Prolonged Expiratory Phase, Rales, Rhonchi, Wheezes, Respiratory Distress, Stridor - Cardiovascular Exam Cardiovascular Exam: +S1, +S2, Murmur - GI/Abdominal Exam GI & Abdominal Exam: Soft, Normal Bowel Sounds. absent: Distended, Firm, Guarding, Rigid, Tenderness, Rebound - Extremities Exam Extremities Exam: Normal Capillary Refill, Normal Inspection. absent: Calf Tenderness, Pedal Edema, Tenderness - Neurological Exam Additional comments: Asleep s/p procedure. - Psychiatric Exam Psychiatric exam: Normal Affect, Normal Mood - Skin Skin Exam: Dry, Intact, Normal Color, Warm Assessment and Plan - Assessment and Plan (Free Text) Assessment: 42 to female with history of cardiac valve repair (x2- aortic and mitral repair) on lovenox, presented to [facility] ED because of vomiting blood clots admitted for upper GI bleed. Patient underwent endoscopy 09/03 which showed hemorrhagic gastritis gastric ulcer. Patient recieving a total of 4 units of pRBC and 2 units FFP. Was scheduled for surgery but is now on hold given drop in hemoglobin. Plan: Upper GI bleed - possibly secondary to ERCP with sphincterotomy performed 08/30 - S/P endoscopy 09/03 - hemorrhagic gastritis gastric ulcer- pending report - Monitor vitals as patient is hypotensive - H/H: 10.3/31.3 trended down to 7.6/22.8 --> will recieve a total of 4 units pRBC and 2 units FFP. - Repeat CBC in 6 hours , serial CBC - FOBT: positive - S/P Protonix 80 IVP x1 (loading dose); Protonix Drip currently. 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 Dilated CBD measures 17 mm in diameter. Small fi lling defect present measuring 6 mm, possibly small calculus. Distal CBD demonstrates abrupt taper; primary or secondary stricture not excluded. Intrahepatic biliary ductal dilatation. Transaminitis - AST/ALT: 64 / 210 - Alk Phos: 279 - LDH: 781 - Trending down since last admission- secondary to choledolithiasis - Trend labs. Mechanical valves - S/P mitral and aortic valve repair - Metoprolol and Lovenox on hold at this time given GI bleed and hypotension DVT prophylaxis - SCD at this time - no anticoagulation at this time given upper GI bleed. <Lit Hsieh D - Last Filed: 09/03/18 13:20> Objective - Vital Signs/Intake and Output Vital Signs (last 24 hours): Temp Pulse Resp BP Pulse Ox 98.7 F 81 21 105/53 L 100 09/03/18 13:13 09/03/18 13:13 09/03/18 13:13 09/03/18 13:13 09/03/18 12:00 Intake and Output: 09/03/18 09/03/18 06:59 18:59 Intake Total 2395 710 Output Total 1001 Balance 1394 710 - Medications Medications: Current Medications Pantoprazole Sodium 40 mg/ (Sodium Chloride) 100 mls @ 50 mls/hr IVPB Q5H [facility] Last Admin: 09/03/18 11:01 Dose: 50 mls/hr Sodium Chloride (Sodium Chloride 0.9%) 500 mls @ 1,000 mls/hr IV .Q30M [facility] Last Admin: 09/03/18 04:00 Dose: 1,000 mls/hr Lactated Ringer's (Lactated Ringer's) 1,000 mls @ 150 mls/hr IV .Q6H40M [facility] Last Admin: 09/03/18 11:02 Dose: 150 mls/hr Ondansetron HCl (Zofran Inj) 4 mg IVP Q6H PRN PRN Reason: Nausea/Vomiting - Labs Labs: 09/03/18 04:25 09/03/18 04:25 PT 14.4 Seconds (9.8-13.1) H 09/02/18 13:00 INR 1.3 09/02/18 13:00 APTT 29.6 Seconds (25.6-37.1) 09/02/18 13:00 Attending/Attestation - Attestation I have personally seen and examined this patient.: Yes I have fully participated in the care of the patient.: Yes I have reviewed all pertinent clinical information, including history, physical exam and plan: Yes Notes (Text): 09/03/18 13:17 Patient seen and examined with resident. Case discussed and agreed with assessment and plan. Will get cardiology consult to assist in managing patient who has 2 prosthetic mechanical valves.
[2018-09-03] MEDS ORDERED: Lactated Ringer's 500 ML IV SCH ×2 (11:30→11:45)
[2018-09-03 14:58] LABS: HEMOGLOBIN 9.2 g/dL (12.0-16.0); MEAN CELL VOLUME 84.7 fl (81.0-99.0); MEAN CORPUSCULAR HEMOGLOBIN 28.9 pg (27.0-31.0); MEAN CORPUSCULAR HGB CONC 34.2 g/dL (33.0-37.0); RBC 3.18 Mil/uL (3.80-5.20); RED CELL DISTRIBUTION WIDTH 13.7 % (11.5-14.5); WHITE BLOOD COUNT 14.1 K/uL (4.8-10.8)
--- NOTE | 2018-09-03 16:53 | RAD ---
Date of service: 09/02/2018 HISTORY: ngt insertion COMPARISON: Portable chest 08/25/2018. TECHNIQUE: 1 view obtained. FINDINGS: LUNGS: No active pulmonary disease. PLEURA: No significant pleural effusion identified, no pneumothorax apparent. CARDIOVASCULAR: No aortic atherosclerotic calcification present. Normal cardiac size. No pulmonary vascular congestion. OSSEOUS STRUCTURES: Sternotomy wires reiterated VISUALIZED UPPER ABDOMEN: A nasogastric tube is identified placed terminating at the right upper quadrant abdomen. OTHER FINDINGS: None. IMPRESSION: No interval acute cardiopulmonary disease. Nasogastric tube in good apparent position.
--- NOTE | 2018-09-03 17:48 | PN ---
DATE: 09/03/2018 CRITICAL CARE PROGRESS NOTE LOCATION: The patient is in ICU, bed 421. TIME SPENT: 45 minutes. SUBJECTIVE: The patient is seen and evaluated at the bedside. Past medical, surgical, family and social history reviewed. 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 The patient is status post cholecystectomy in 2000. Admitted to [facility] complaining of pain in right upper quadrant associated with nausea, vomiting. An MRCP showed filling defect in the distal common bile duct, consistent with calculus and also distal narrowing. Seen by GI, underwent ERCP, sphincterotomy. During the procedure, the patient was noted to have a choledochal cyst. The patient was Lovenox, discharged home to continue on Lovenox and pending choledochal cyst resection and hepaticojejunostomy. Admitted and presented to ER complaining of nausea, vomiting, hematemesis, followed by melena, noted to be hypertensive, complaining of dizziness and lightheadedness. Received transfusion of 3 units of packed red blood cells with improvement in her symptoms. The patient currently has no abdominal pain, but noted to have melanotic stools. PHYSICAL EXAMINATION: VITAL SIGNS: Temperature 100, heart rate 102-105 regular, blood pressure 103/47, respiratory rate 15. Intake: 2395. Output 1501. Positive balance 891, weight 166 pounds. HEAD, EYES, EARS, NOSE AND THROAT: Pupils are reactive. Conjunctivae are pink. Sclerae white. NECK: Supple. Trachea is central. CHEST: Bilateral breath sounds. Clear to auscultation. HEART: Rhythm regular. S1 and S2 normal intensity. Click present in the aortic and mitral valve area. ABDOMEN: Bowel sounds present, soft. EXTREMITIES: No edema. NEUROLOGIC: Nonfocal. CURRENT MEDICATIONS: Ringer's Lactate at 150 mL/hr, Zofran 4 mg IV ever 6 hours p.r.n., Protonix drip at 40 mg in 100 mL at 20 mg per hour. LABORATORY DATA: WBC 16.3, hemoglobin 7.6, hematocrit 22.8, and platelet count 167, neutrophils 87.1, lymphocytes 7.9, monocytes 4.7. PT 14.5, INR 1.3, and PTT 29.6. ABG lactate level 1.6. SMA-7: Sodium 136, potassium 4.4, chloride 111, CO2 of 20, blood urea nitrogen 33, creatinine 0.7, random glucose 128, calcium 7.4. AST 64, ALT 210, alkaline phosphatase 279, LDH 781. Stool occult blood positive. Microbiology, none reported. Chest x-ray, sternotomy present, both pleural cardiophrenic and costophrenic angles are clear. No pulmonary congestion. EKG, heart rate 81, MD interval 0.13 seconds. QT corrected 48, consistent with a normal sinus rhythm. T-wave abnormality in the inferior leads. IMPRESSION: 1. Neuro: Alert and awake. Follows commands, appropriate. 2. Cardiac: History of rheumatic heart disease status post aortic and mitral valve replacement, anticoagulation on hold secondary to GI bleeding. Cardiology evaluation requested. 3. Pulmonary: No acute issues. 4. Gastrointestinal: Elevated liver enzymes, trending down. Cholecystectomy status post ERCP for suspected stone in the distal common bile duct, status post ERCP and sphincterotomy. Postop noted to have bleeding. Continue transfusion. Keep hemoglobin and hematocrit close to 10/30. Continue Protonix drip and IV hydration. 5. Renal: No issues noted. 6. Hematology: Leukocytosis. Anemia secondary to acute GI blood loss. Continue to monitor and transfuse as needed. 7. Infectious Disease: Leukocytosis, probably reactive. Blood culture so far negative. If she continues to be afebrile, we will start antibiotic empirically to cover for any site infection. Discuss with Surgery consult, pending endoscopy this morning. Followup hemoglobin and hematocrit. Lonny Licona MD
[2018-09-04] MEDS: Lactated Ringer's 1,000 ML IV SCH ×3 (01:00→21:41)
--- NOTE | 2018-09-04 01:48 | DS ---
HISTORY OF PRESENT ILLNESS: This is a 42-year-old woman with a longstanding history of cardiac disease, rheumatic heart fever, cardiac valve repair x2 of the aortic and the mitral valves, who a week ago was admitted here in the hospital and had ERCP performed by Dr. Ryan past because of choledocholithiasis. At that time, a sphincterotomy was done with removal of stones. The patient did well postprocedure; however, she was discharged on Monday. Because of her history of valve repair, she had to be restarted on anticoagulants, specifically subcutaneous Lovenox was ordered for the patient to maintain on until she was coming back for an elective cholecystectomy tomorrow here in the hospital. Unfortunately, while on the Lovenox, yesterday she started to have episodes of hematemesis and melena prior to coming to the emergency room. Over the last 24 hours, she said she has had multiple bouts of melena and hematemesis although an NG tube that was put in initially was clear. Her hemoglobin did drop down to as low as 7.1. She received two units of blood overnight. This morning her hemoglobin was only 7.6, so she is receiving blood now. She has been kept n.p.o. and on Protonix drip. I just had a long conservation with her about her situation and the need for an urgent and emergent endoscopy to look for the source of bleeding, she is agreeable to that and she has been kept n.p.o. in order to perform that this morning. Other than that, she is presently a bit pale but her vital signs have been stable. She is receiving the IV fluids as well as the Protonix drip. MEDICATIONS: Noted. ALLERGIES: NO KNOWN DRUG ALLERGIES. PAST MEDICAL HISTORY: As per the HPI. PAST SURGICAL HISTORY: As per the HPI. FAMILY HISTORY: Noncontributory. SOCIAL HISTORY: Noncontributory. PHYSICAL EXAMINATION: GENERAL: A well-developed, well-nourished woman, awake, alert, and oriented x3, in no acute distress at the present time, although she does have some pallor and weakness. VITAL SIGNS: Presently stable. She is afebrile and she has been afebrile. ABDOMEN: Soft with good bowel sounds, nontender, and nondistended. There are no palpable masses or lesions. She has an NG tube in place as well as a Marte. LABORATORY DATA: This morning her white is 16.3, H and H 7.6 and 22.8, platelet count is 167. Her INR yesterday was 1.3. She had been on Lovenox, now warfarin. SMA-7; yesterday BUN was up to 41, today is down to 33. LFTs are elevated but better than it had been last week. IMPRESSION AND PLAN: A 42-year-old woman status post endoscopic retrograde cholangiopancreatography with sphincterotomy this past who came in with an apparent upper gastrointestinal bleed, having had hematemesis and multiple bouts of melena requiring blood transfusion. She has presently received her third blood transfusion because her hemoglobin this morning was only 7.6. She has been kept nothing by mouth, on a Protonix drip and I will perform an emergent endoscopy this morning. Once I perform the endoscopy, depending on what I find, I will make further recommendations but more than likely this was bleeding from the sphincterotomy site and I will be focusing on looking at that as well any other possible reasons that could be the source of the bleeding. Kaiser Rubi MD
[2018-09-04] MEDS: Pantoprazole 40 MG in Sodium Chloride 0.9% 100 ML IVPB SCH ×3 (02:00→14:04)
[2018-09-04 05:29] LABS: BLOOD UREA NITROGEN 14 mg/dl (7-17); CALCIUM 7.8 mg/dL (8.4-10.2); GFR NON-AFRICAN AMERICAN > 60
[2018-09-04 05:30] LABS: HEMOGLOBIN 8.8 g/dL (12.0-16.0); MEAN CELL VOLUME 83.7 fl (81.0-99.0); MEAN CORPUSCULAR HEMOGLOBIN 29.6 pg (27.0-31.0); MEAN CORPUSCULAR HGB CONC 35.3 g/dL (33.0-37.0); RBC 2.97 Mil/uL (3.80-5.20); RED CELL DISTRIBUTION WIDTH 14.2 % (11.5-14.5); WHITE BLOOD COUNT 9.7 K/uL (4.8-10.8)
--- NOTE | 2018-09-04 07:31 | CP.PCM.PN ---
<ShayneIvana-Harshad - Last Filed: 09/04/18 07:23> Subjective - Date & Time of Evaluation Date of Evaluation: 09/04/18 Time of Evaluation: 07:23 - Subjective Subjective: Surgery: Dr. Ortega Patient states she is feeling better today. Denies further black or bloody bowel movements. Per nursing no acute events overnight. Patient received 2 PRBC and 2 FFP yesterday. Objective - Vital Signs/Intake and Output Vital Signs (last 24 hours): Temp Pulse Resp BP Pulse Ox 99 F 78 19 113/65 99 09/04/18 04:00 09/04/18 06:00 09/04/18 06:00 09/04/18 06:00 09/04/18 06:00 Intake and Output: 09/04/18 09/04/18 06:59 18:59 Intake Total 1870 Output Total 2000 Balance -130 - Medications Medications: Current Medications Pantoprazole Sodium 40 mg/ (Sodium Chloride) 100 mls @ 50 mls/hr IVPB Q5H [facility] Last Admin: 09/04/18 02:00 Dose: 50 mls/hr Sodium Chloride (Sodium Chloride 0.9%) 500 mls @ 1,000 mls/hr IV .Q30M [facility] Last Admin: 09/03/18 04:00 Dose: 1,000 mls/hr Lactated Ringer's (Lactated Ringer's) 1,000 mls @ 150 mls/hr IV .Q6H40M [facility] Last Admin: 09/04/18 01:00 Dose: 150 mls/hr Ondansetron HCl (Zofran Inj) 4 mg IVP Q6H PRN PRN Reason: Nausea/Vomiting - Labs Labs: 09/04/18 04:21 09/04/18 04:21 PT 14.4 Seconds (9.8-13.1) H 09/02/18 13:00 INR 1.3 09/02/18 13:00 APTT 29.6 Seconds (25.6-37.1) 09/02/18 13:00 - Constitutional Appears: Non-toxic, No Acute Distress - Head Exam Head Exam: ATRAUMATIC, NORMOCEPHALIC - Eye Exam Eye Exam: EOMI, Normal appearance - ENT Exam ENT Exam: Mucous Membranes Moist - Respiratory Exam Respiratory Exam: NORMAL BREATHING PATTERN. absent: Respiratory Distress - Cardiovascular Exam Cardiovascular Exam: REGULAR RHYTHM. absent: Tachycardia - GI/Abdominal Exam GI & Abdominal Exam: Soft. absent: Distended, Tenderness - Neurological Exam Neurological Exam: Alert, Awake - Psychiatric Exam Psychiatric exam: Normal Affect, Normal Mood - Skin Skin Exam: Normal Color, Warm Assessment and Plan - Assessment and Plan (Free Text) Assessment: 42 y/o female presenting w/ GI bleed Plan: -hold AC -HD stable s/p total 4 PRBC and 2 FFP -EGD with nonbleeding ulcer -transfuse prn -monitor for further bleeding -will hold off on choledochal cystectomy until medically stable -further recs per Dr. Alejandro PGY4 <Rusty Schneider - Last Filed: 09/04/18 21:29> Objective - Vital Signs/Intake and Output Vital Signs (last 24 hours): Temp Pulse Resp BP Pulse Ox 98.6 F 91 H 12 108/59 L 98 09/04/18 16:00 09/04/18 20:00 09/04/18 20:00 09/04/18 20:00 09/04/18 20:00 Intake and Output: 09/04/18 09/05/18 18:59 06:59 Intake Total 2050 60 Output Total 3300 Balance -1250 60 - Medications Medications: Current Medications Famotidine (Pepcid) 20 mg IVP Q12 [facility] Sodium Chloride (Sodium Chloride 0.9%) 500 mls @ 1,000 mls/hr IV .Q30M [facility] Last Admin: 09/03/18 04:00 Dose: 1,000 mls/hr Lactated Ringer's (Lactated Ringer's) 1,000 mls @ 150 mls/hr IV .Q6H40M [facility] Last Admin: 09/04/18 08:45 Dose: 150 mls/hr Ondansetron HCl (Zofran Inj) 4 mg IVP Q6H PRN PRN Reason: Nausea/Vomiting - Labs Labs: 09/04/18 15:06 09/04/18 15:06 PT 13.3 Seconds (9.8-13.1) H 09/04/18 15:06 INR 1.2 09/04/18 15:06 APTT 27.0 Seconds (25.6-37.1) 09/04/18 15:06 Assessment and Plan - Assessment and Plan (Free Text) Plan: All medical record entries made by the resident were at my direction. I have reviewed the chart and agree that the record accurately reflects my personal performance of the history, physical exam, and medical decision making.
--- NOTE | 2018-09-04 07:38 | CP.CCUPN ---
CCU Subjective - Physician Review Subjective (Free Text): 09/04/18 The patient was Seen/interviewed and examined by me at the bedside during ICU round, Medical records reviewed and Management issues were discussed and formulated with the house staff. Events reviewed Patient is a 42 years old female with past medical history of rheumatic heart disease, status post aortic and mitral valve replacement and choledocholithiasis Who presented to the emergency room for evaluation of vomiting with blood clots and abdominal pain She was admitted to the ICU for management of acute gastrointestinal bleed and also found to have type I fusiform choledochal cyst Patient underwent EGD that shows hemorrhagic gastritis and no areas of active bleeding Patient has been on IV Protonix and his H&H has been stable, and no further episode of GI bleeding Patient is doing better today, abdominal pain well controlled Comfortable in no apparent distress Afebrile Who is actually CCU Objective - Vital Signs / Intake & Output Vital Signs (Last 4 hours): Vital Signs Temp Pulse Resp BP Pulse Ox 09/04/18 06:00 78 19 113/65 99 09/04/18 04:00 99 F 77 19 110/50 L 97 Intake and Output (Last 8hrs): Intake & Output 09/03/18 09/04/18 09/04/18 22:59 06:59 14:59 Intake Total 2430 1360 Output Total 600 2000 Balance 1830 -640 Weight 164 lb 12.8 oz Intake: IV 2250 1360 Blood Product 180 Output: Urine 600 2000 Urethral (Marte) 600 2000 Other: # Bowel Movements 1 - Physical Exam Head: Positive for: Atraumatic, Normocephalic Pupils: Positive for: PERRL Extroacular Muscles: Positive for: EOMI Conjunctiva: Positive for: Normal Mouth: Positive for: Moist Mucous Membranes Nose (Internal): Positive for: Normal Inspection Neck: Positive for: Normal Range of Motion, Trachea Midline Respiratory/Chest: Positive for: Clear to Auscultation, Good Air Exchange. Negative for: Respiratory Distress, Accessory Muscle Use Cardiovascular: Positive for: Regular Rate and Rhythm, Normal S1, S2. Negative for: Murmurs Abdomen: Positive for: Normal Bowel Sounds. Negative for: Tenderness, Distention - Medications Active Medications: Active Medications Generic Name Dose Route Start Last Admin Trade Name Freq PRN Reason Stop Dose Admin Pantoprazole Sodium 40 mg/ 100 mls @ 50 mls/hr 09/02/18 20:15 05/28/19 02:00 Sodium Chloride IVPB 50 mls/hr Q5H [facility] Administration 20 MG/HR Sodium Chloride 500 mls @ 1,000 mls/hr 09/03/18 04:00 09/03/18 04:00 Sodium Chloride 0.9% IV 1,000 mls/hr .Q30M [facility] Administration Lactated Ringer's 1,000 mls @ 150 mls/hr 09/03/18 04:16 09/04/18 01:00 Lactated Ringer's IV 150 mls/hr .Q6H40M [facility] Administration Ondansetron HCl 4 mg 09/02/18 14:28 Zofran Inj IVP Q6H PRN Nausea/Vomiting - Patient Studies Lab Studies: Microbiology Studies 09/02/18 13:10 Blood Culture - Preliminary Blood-Venous NO GROWTH AFTER 24 HOURS 09/02/18 12:56 Blood Culture - Preliminary Blood-Venous NO GROWTH AFTER 24 HOURS Lab Studies 09/04/18 09/04/18 09/03/18 Range/Units 04:21 04:21 14:48 WBC 9.7 14.1 H (4.8-10.8) K/uL RBC 2.97 L 3.18 L (3.80-5.20) Mil/uL Hgb 8.8 L 9.2 L (12.0-16.0) g/dL Hct 24.9 L 26.9 L (34.0-47.0) % MCV 83.7 84.7 (81.0-99.0) fl MCH 29.6 28.9 (27.0-31.0) pg MCHC 35.3 34.2 (33.0-37.0) g/dL RDW 14.2 13.7 (11.5-14.5) % Plt Count 120 L 122 L D (130-400) K/uL Sodium 135 (132-148) mmol/l Potassium 3.7 (3.6-5.0) MMOL/L Chloride 104 (98-107) mmol/L Carbon Dioxide 28 (22-30) mmol/L Anion Gap 7 L (10-20) BUN 14 (7-17) mg/dl Creatinine 0.7 (0.7-1.2) mg/dl Est GFR ( Amer) > 60 Est GFR (Non-Af Amer) > 60 Random Glucose 91 (65-105) mg/dL Calcium 7.8 L (8.4-10.2) mg/dL Urine HCG, Qual (NEGATIVE) Blood Type Antibody Screen Crossmatch BBK History Checked 09/03/18 09/02/18 Range/Units 08:41 12:56 WBC (4.8-10.8) K/uL RBC (3.80-5.20) Mil/uL Hgb (12.0-16.0) g/dL Hct (34.0-47.0) % MCV (81.0-99.0) fl MCH (27.0-31.0) pg MCHC (33.0-37.0) g/dL RDW (11.5-14.5) % Plt Count (130-400) K/uL Sodium (132-148) mmol/l Potassium (3.6-5.0) MMOL/L Chloride (98-107) mmol/L Carbon Dioxide (22-30) mmol/L Anion Gap (10-20) BUN (7-17) mg/dl Creatinine (0.7-1.2) mg/dl Est GFR ( Amer) Est GFR (Non-Af Amer) Random Glucose (65-105) mg/dL Calcium (8.4-10.2) mg/dL Urine HCG, Qual Negative (NEGATIVE) Blood Type A POSITIVE Antibody Screen Negative Crossmatch See Detail BBK History Checked Patient has bt Laboratory Results - last 24 hr 09/02/18 09/03/18 09/03/18 12:56 08:41 14:48 WBC 14.1 H RBC 3.18 L Hgb 9.2 L Hct 26.9 L MCV 84.7 MCH 28.9 MCHC 34.2 RDW 13.7 Plt Count 122 L D Sodium Potassium Chloride Carbon Dioxide Anion Gap BUN Creatinine Est GFR ( Amer) Est GFR (Non-Af Amer) Random Glucose Calcium Urine HCG, Qual Negative Blood Type A POSITIVE Antibody Screen Negative Crossmatch See Detail BBK History Checked Patient has bt 09/04/18 09/04/18 04:21 04:21 WBC 9.7 RBC 2.97 L Hgb 8.8 L Hct 24.9 L MCV 83.7 MCH 29.6 MCHC 35.3 RDW 14.2 Plt Count 120 L Sodium 135 Potassium 3.7 Chloride 104 Carbon Dioxide 28 Anion Gap 7 L BUN 14 Creatinine 0.7 Est GFR ( Amer) > 60 Est GFR (Non-Af Amer) > 60 Random Glucose 91 Calcium 7.8 L Urine HCG, Qual Blood Type Antibody Screen Crossmatch BBK History Checked Radiology Impressions: Radiology Impressions Chest X-Ray 09/02/18 20:12 IMPRESSION: No interval acute cardiopulmonary disease. Nasogastric tube in good apparent position. Chest X-Ray 09/03/18 09:41 IMPRESSION: Interval right central venous catheter deployment in good apparent position. Stable nasogastric tube placement. No acute cardiopulmonary disease appreciable. Fingerstick Blood Sugar Results: 129 Review of Systems - Cardiovascular Cardiovascular: absent: Acrocyanosis, Chest Pain, Chest Pain at Rest, Chest Pain with Activity, Edema - Respiratory Respiratory: absent: Cough, Dyspnea, Hemoptysis, Dyspnea on Exertion - Gastrointestinal Gastrointestinal: Abdominal Pain Critical Care Progress Note - Extremities/Vascular Does the Patient have a Central Venous Catheter?: Yes Does the Patient need a Central Venous Catheter?: Yes Does the Patient have a Marte Catheter?: No Does the Patient need a Marte Catheter?: No - Nutrition Nutrition: Nutrition Category Date Time Status Liquid Diet [DIET] Diets 09/03/18 Dinner Active Assessment/Plan (1) Gastrointestinal hemorrhage Current Visit: Yes Status: Acute Priority: High (2) Choledochal cyst Current Visit: Yes Status: Acute Priority: High (3) Choledocholithiasis with acute cholecystitis Current Visit: Yes Status: Acute Priority: High (4) Mechanical heart valve present Current Visit: Yes Status: Chronic Priority: High (5) Abdominal pain Current Visit: Yes Status: Acute Priority: High - Assessment and Plan (Free Text) Assessment: Labs significant for platelet count drop about 50%, hematology consult and lab was sent to rule out HIT Extensive discussion with cardiology, hematology and surgery in regard to the abdomen anticoagulation planning in light of the fact that argatroban could be harmful and patient with mechanical valve, argatroban drip withheld, because of the low possibility of HIT we will not give heparin or Lovenox, we feel restarting her Coumadin would be the most optimal and safer at this time, Patient had mitral valve replaced 25 years ago and aortic valve about 18 years ago, she has been on Coumadin 5 mg 5 times a week, every day except Monday and Monday when she gets 7.5 mg We will give the patient 10 mg Coumadin mila
--- NOTE | 2018-09-04 07:52 | DS ---
HISTORY OF PRESENT ILLNESS: A 42-year-old woman with an upper GI bleed who was prepped for an emergent endoscopy. This is a report for the endoscopy. After obtaining informed consent from the patient, she was placed on left lateral decubitus position in the ICU and sedated by Dr. Catalan of the Anesthesia Department. A complete upper endoscopy was performed. FINDINGS: As follows, 1. Her esophagus was completely unremarkable. It was fair length with the Z-line at about 34 cm from the incisors. 2. She had a 3 to 4 cm length sliding hiatus hernia within which the mucosa appeared unremarkable. 3. The gastric body along the greater curvature had a significant degree of hemorrhagic gastritis, NG tube contusions and a couple of clean based ulcerations of the mucosa were indeed noted. The antral mucosa appeared unremarkable. Scope was placed in retroflex position within the aforementioned hiatus hernia and the aforementioned hemorrhagic gastritis, but there was no blood whatsoever in the stomach. Scope advanced through the prepylorus down to the third and fourth portions of the duodenum. There was no blood or bleeding visualized. I took a very good look at the papilla since she had a sphincterotomy just 4 days ago. The papilla looks completely unremarkable without any evidence of bleeding whatsoever either. She tolerated the procedure very well and postop orders had been written. I will start her on clear liquids. Continue with the Protonix. She is receiving 2 units of blood today. Repeat hemoglobin later today and we will follow along with you. Kaiser Rubi MD
[2018-09-04 09:12] LABS: ALB/GLOB RATIO 1.1 (1.0-2.1); ALBUMIN 2.6 g/dL (3.5-5.0); BILIRUBIN,DIRECT 0.2 mg/ml (0.0-0.4)
--- NOTE | 2018-09-04 09:33 | CP.PCM.PN ---
<Yarelis Ford - Last Filed: 09/04/18 10:50> Subjective - Date & Time of Evaluation Date of Evaluation: 09/04/18 Time of Evaluation: 09:50 - Subjective Subjective: Patient seen and examined at bedside. No acute events overnight. Patient denies abdominal pain, dizziness, nausea, vomiting. Reports BM yesterday. Objective - Vital Signs/Intake and Output Vital Signs (last 24 hours): Temp Pulse Resp BP Pulse Ox 97.9 F 77 20 115/58 L 100 09/04/18 07:56 09/04/18 07:56 09/04/18 07:56 09/04/18 07:56 09/04/18 07:56 Intake and Output: 09/04/18 09/04/18 06:59 18:59 Intake Total 1870 340 Output Total 2000 Balance -130 340 - Medications Medications: Current Medications Pantoprazole Sodium 40 mg/ (Sodium Chloride) 100 mls @ 50 mls/hr IVPB Q5H [facility] Last Admin: 09/04/18 08:44 Dose: 50 mls/hr Sodium Chloride (Sodium Chloride 0.9%) 500 mls @ 1,000 mls/hr IV .Q30M [facility] Last Admin: 09/03/18 04:00 Dose: 1,000 mls/hr Lactated Ringer's (Lactated Ringer's) 1,000 mls @ 150 mls/hr IV .Q6H40M [facility] Last Admin: 09/04/18 08:45 Dose: 150 mls/hr Ondansetron HCl (Zofran Inj) 4 mg IVP Q6H PRN PRN Reason: Nausea/Vomiting - Labs Labs: 09/04/18 04:21 09/04/18 04:21 PT 14.4 Seconds (9.8-13.1) H 09/02/18 13:00 INR 1.3 09/02/18 13:00 APTT 29.6 Seconds (25.6-37.1) 09/02/18 13:00 - Constitutional Appears: Toxic, No Acute Distress, Chronically Ill - Eye Exam Eye Exam: Normal appearance - ENT Exam ENT Exam: Mucous Membranes Moist - Respiratory Exam Respiratory Exam: Clear to Ausculation Bilateral, NORMAL BREATHING PATTERN. absent: Accessory Muscle Use, Chest Wall Tenderness, Decreased Breath Sounds, Prolonged Expiratory Phase, Rales, Rhonchi, Wheezes, Respiratory Distress, Stridor - Cardiovascular Exam Cardiovascular Exam: +S1, +S2, Murmur - GI/Abdominal Exam GI & Abdominal Exam: Soft, Normal Bowel Sounds. absent: Distended, Firm, Guarding, Rigid, Tenderness, Mass, Rebound - Extremities Exam Extremities Exam: Normal Capillary Refill, Normal Inspection. absent: Calf Tenderness, Joint Swelling, Pedal Edema, Tenderness - Neurological Exam Neurological Exam: Alert, Awake, Oriented x3 - Psychiatric Exam Psychiatric exam: Normal Affect, Normal Mood - Skin Skin Exam: Dry, Warm Additional comments: ecchymosis noted on arms and legs, present on admission. Assessment and Plan - Assessment and Plan (Free Text) Assessment: 42 to female with history of cardiac valve repair (x2- aortic and mitral repair) on lovenox, presented to [facility] ED because of vomiting blood clots admitted for upper GI bleed. Patient underwent endoscopy 09/03 which showed hemorrhagic gastritis gastric ulcer. Patient s/p a total of 4 units of pRBC and 2 units FFP. Pending Cardiology consult given patient is currently not on anticoagulants given GI bleeding. Thrombocytopenia noted, consulted hem/onc- Dr. Roa. Hemodynamically stable at this time. Plan: Upper GI bleed - ERCP with sphincterotomy performed 08/30 - S/P endoscopy 09/03 - hemorrhagic gastritis gastric non-bleding ulcer- pending final report - Monitor vitals as patient is hypotensive - H/H: stable s/p 4 units pRBC and 2 units FFP. - FOBT: positive - S/P Protonix 80 IVP x1 (loading dose) - Protonix 40mg Q5H - Liquid diet at this time Choledolchocyst - found on ERCP performed 08/30 - S/P ERCP sphincterotomy 08/30 - GI consulted, appreciate rec's - Was scheduled for surgery with Dr. Cook for type 1 choledochol cyst excision hepaticojejunostomy - on hold for now - Surgery Consult - surgery on hold; - previous CT abdomen showed dilated CBD and MRCP showed small filling defect in CBD and possible distal stricture; - MRCP showed :Cholecystectomy. Dilated CBD measures 17 mm in diameter. Small filling defect present measuring 6 mm, possibly small calculus. Distal CBD demonstrates abrupt taper; primary or secondary stricture not excluded. Intrahepatic biliary ductal dilatation. Transaminitis - Trending down - AST/ALT: 64 / 210 - Alk Phos: 279 - LDH: 781 - Trending down since last admission- secondary to choledolithiasis - Trend labs. Thrombocytopenia - Consult Hem/Onc- Dr. Roa - from 295 to 120 Mechanical valves - S/P mitral and aortic valve repair - Metoprolol and Lovenox on hold at this time given GI bleed and hypotension -Cardiology consult appreciated DVT prophylaxis - SCD at this time - no anticoagulation at this time given upper GI bleed. <Nancy Shafer - Last Filed: 09/04/18 15:22> Objective - Vital Signs/Intake and Output Vital Signs (last 24 hours): Temp Pulse Resp BP Pulse Ox 98.4 F 86 19 117/61 99 09/04/18 11:57 09/04/18 11:57 09/04/18 11:57 09/04/18 11:57 09/04/18 11:57 Intake and Output: 09/04/18 09/04/18 06:59 18:59 Intake Total 1870 1020 Output Total 2000 Balance -130 1020 - Medications Medications: Current Medications Pantoprazole Sodium 40 mg/ (Sodium Chloride) 100 mls @ 50 mls/hr IVPB Q5H [facility] Last Admin: 09/04/18 14:04 Dose: 50 mls/hr Sodium Chloride (Sodium Chloride 0.9%) 500 mls @ 1,000 mls/hr IV .Q30M [facility] Last Admin: 09/03/18 04:00 Dose: 1,000 mls/hr Lactated Ringer's (Lactated Ringer's) 1,000 mls @ 150 mls/hr IV .Q6H40M [facility] Last Admin: 09/04/18 08:45 Dose: 150 mls/hr Argatroban 250 mg/ Sodium (Chloride) 252.5 mls @ 2.27 mls/hr IV .Q24H RADHA; Protocol Ondansetron HCl (Zofran Inj) 4 mg IVP Q6H PRN PRN Reason: Nausea/Vomiting - Labs Labs: 09/04/18 15:06 09/04/18 04:21 PT 14.4 Seconds (9.8-13.1) H 09/02/18 13:00 INR 1.3 09/02/18 13:00 APTT 29.6 Seconds (25.6-37.1) 09/02/18 13:00 Attending/Attestation - Attestation I have personally seen and examined this patient.: Yes I have fully participated in the care of the patient.: Yes I have reviewed all pertinent clinical information, including history, physical exam and plan: Yes Notes (Text): Upper GI Bleed prob from Gastritis Acute Blood Loss Anemia from GI Bleed Thrombocytopenia ? Dilutional from Blood TRansfusion r/o HIT Abnormal LFTs with Choledocholithiasis ( Hx of Cholecystectomy) s/p ERCP with Sphincterotomy Choledochal Cyst History of Mechanical Valve Replacement cont Protonix drip Pt had EGD - showed Hemorrhagic Gastritis , no active bleeding monitor CBC - stable so far since transfusion, no asigns of active bleed Hematology consulted- discussed case with Dr Roa - unlikely HIT but he rec to start Argatroban Surgery on case - will hold off with any surgery for the Choledochal cyst for now Advance diet
--- NOTE | 2018-09-04 09:43 | CP.PCM.PN ---
Subjective - Date & Time of Evaluation Date of Evaluation: 09/04/18 Time of Evaluation: 09:42 - Subjective Subjective: no overnight events Objective - Vital Signs/Intake and Output Vital Signs (last 24 hours): Temp Pulse Resp BP Pulse Ox 97.9 F 77 20 115/58 L 100 09/04/18 07:56 09/04/18 07:56 09/04/18 07:56 09/04/18 07:56 09/04/18 07:56 Intake and Output: 09/04/18 09/04/18 06:59 18:59 Intake Total 1870 340 Output Total 2000 Balance -130 340 - Medications Medications: Current Medications Pantoprazole Sodium 40 mg/ (Sodium Chloride) 100 mls @ 50 mls/hr IVPB Q5H [facility] Last Admin: 09/04/18 08:44 Dose: 50 mls/hr Sodium Chloride (Sodium Chloride 0.9%) 500 mls @ 1,000 mls/hr IV .Q30M [facility] Last Admin: 09/03/18 04:00 Dose: 1,000 mls/hr Lactated Ringer's (Lactated Ringer's) 1,000 mls @ 150 mls/hr IV .Q6H40M [facility] Last Admin: 09/04/18 08:45 Dose: 150 mls/hr Ondansetron HCl (Zofran Inj) 4 mg IVP Q6H PRN PRN Reason: Nausea/Vomiting - Labs Labs: 09/04/18 04:21 09/04/18 04:21 PT 14.4 Seconds (9.8-13.1) H 09/02/18 13:00 INR 1.3 09/02/18 13:00 APTT 29.6 Seconds (25.6-37.1) 09/02/18 13:00 - Head Exam Head Exam: NORMAL INSPECTION - Respiratory Exam Respiratory Exam: Clear to Ausculation Bilateral, NORMAL BREATHING PATTERN - Cardiovascular Exam Cardiovascular Exam: REGULAR RHYTHM - GI/Abdominal Exam GI & Abdominal Exam: Soft, Normal Bowel Sounds Assessment and Plan - Assessment and Plan (Free Text) Assessment: 42 yo female with GIB hgb trending advance diet if not having any procedures
--- NOTE | 2018-09-04 12:17 | CP.PCM.CON ---
History of Present Illness - History of Present Illness History of Present Illness: 42 year old female with a history of mechanical heart valves (aortic and mitral) on lovenox, recent ERCP for choledocalithias, presenting with hematemesis, found to have anemia, thrombocytopenia and concern for HIT. The patient notes to vomiting blood clots which prompted her to come to the hospital. She required 4U PRBC and 2U FFP. EGD revealed gastritis and gastric ulcer. She was admitted with a normal plt count which declined to 120,000. Lovenox has been held and HIT is being rule out. Past medical history: mechanical heart valves (aortic and mitral) on lovenox, recent ERCP for choledocalithias Past surgical history: mechanical heart valves (aortic and mitral) on lovenox, recent ERCP for choledocalithias Family history: Denies hematologic and oncologic problems Social history: Zaid tobacco, alcohol, and illicit drug use. Allergies: NKA Review of systems: All remaining review of systems including HEENT, cardiovascular, respiratory, gastrointestinal, genitourinary, musculoskeletal, dermatologic, neurologic, and psychiatric are negative unless mentioned in the HPI. Past Patient History - Past Medical History & Family History Past Medical History?: Yes - Past Social History Alcohol: None Drugs: Denies - CARDIAC Hx Cardiac Disorders: Yes Hx Heart Murmur: Yes Other/Comment: cardiac valve repair, rheumatic disease - PULMONARY Hx Pneumonia: Yes - NEUROLOGICAL Hx Neurological Disorder: No - HEENT Hx HEENT Problems: No - RENAL Hx Chronic Kidney Disease: No - ENDOCRINE/METABOLIC Hx Endocrine Disorders: No - HEMATOLOGICAL/ONCOLOGICAL Hx Human Immunodeficiency Virus (HIV): No - INTEGUMENTARY Hx Dermatological Problems: No - MUSCULOSKELETAL/RHEUMATOLOGICAL Hx Musculoskeletal Disorders: No - GASTROINTESTINAL Hx Gastrointestinal Disorders: No - GENITOURINARY/GYNECOLOGICAL Hx Genitourinary Disorders: No - PSYCHIATRIC Hx Psychophysiologic Disorder: No Hx Substance Use: No - SURGICAL HISTORY Hx Cholecystectomy: Yes - ANESTHESIA Hx Anesthesia: Yes Hx Anesthesia Reactions: No Meds Allergies/Adverse Reactions: Allergies Allergy/AdvReac Type Severity Reaction Status Date / Time No Known Allergies Allergy Verified 09/02/18 12:26 - Medications Medications: Current Medications Pantoprazole Sodium 40 mg/ (Sodium Chloride) 100 mls @ 50 mls/hr IVPB Q5H [facility] Last Admin: 09/04/18 08:44 Dose: 50 mls/hr Sodium Chloride (Sodium Chloride 0.9%) 500 mls @ 1,000 mls/hr IV .Q30M [facility] Last Admin: 09/03/18 04:00 Dose: 1,000 mls/hr Lactated Ringer's (Lactated Ringer's) 1,000 mls @ 150 mls/hr IV .Q6H40M [facility] Last Admin: 09/04/18 08:45 Dose: 150 mls/hr Ondansetron HCl (Zofran Inj) 4 mg IVP Q6H PRN PRN Reason: Nausea/Vomiting Physical Exam - Head Exam Head Exam: ATRAUMATIC - Eye Exam Eye Exam: Normal appearance - ENT Exam ENT Exam: Mucous Membranes Dry - Respiratory Exam Respiratory Exam: NORMAL BREATHING PATTERN - Cardiovascular Exam Cardiovascular Exam: +S1, +S2 - GI/Abdominal Exam GI & Abdominal Exam: Normal Bowel Sounds - Neurological Exam Neurological exam: Oriented x3 - Psychiatric Exam Psychiatric exam: Normal Affect, Normal Mood - Skin Skin Exam: Warm Results - Vital Signs Recent Vital Signs: Last Vital Signs Temp 98.4 F 09/04/18 11:57 Pulse 86 09/04/18 11:57 Resp 19 09/04/18 11:57 BP 117/61 09/04/18 11:57 Pulse Ox 99 09/04/18 11:57 - Labs Result Diagrams: 09/04/18 21:15 09/04/18 15:06 Labs: Laboratory Results - last 24 hr 09/02/18 09/03/18 09/04/18 12:56 14:48 04:21 WBC 14.1 H 9.7 RBC 3.18 L 2.97 L Hgb 9.2 L 8.8 L Hct 26.9 L 24.9 L MCV 84.7 83.7 MCH 28.9 29.6 MCHC 34.2 35.3 RDW 13.7 14.2 Plt Count 122 L D 120 L Sodium Potassium Chloride Carbon Dioxide Anion Gap BUN Creatinine Est GFR ( Amer) Est GFR (Non-Af Amer) Random Glucose Calcium Total Bilirubin Direct Bilirubin AST ALT Alkaline Phosphatase Total Protein Albumin Globulin Albumin/Globulin Ratio Crossmatch See Detail 09/04/18 09/04/18 04:21 08:15 WBC RBC Hgb Hct MCV MCH MCHC RDW Plt Count Sodium 135 Potassium 3.7 Chloride 104 Carbon Dioxide 28 Anion Gap 7 L BUN 14 Creatinine 0.7 Est GFR ( Amer) > 60 Est GFR (Non-Af Amer) > 60 Random Glucose 91 Calcium 7.8 L Total Bilirubin 0.5 Direct Bilirubin 0.2 AST 42 H D ALT 88 H D Alkaline Phosphatase 108 Total Protein 5.0 L Albumin 2.6 L D Globulin 2.4 Albumin/Globulin Ratio 1.1 Crossmatch Assessment & Plan (1) Thrombocytopenia Assessment and Plan: low suspcion for HIT but awaiting sent w/u likely dilutional thrombocytopenia from transfusions argatroban felt to be inadequate anticoagulation for mechanical valve as discussed with cardiology cardiology plan to restart coumadin surgery to be performed at a later date. Status: Acute (2) Anemia Assessment and Plan: GI bleeding retic count, b12, folate, ferritin to further characterize Thank you for this interesting consult. Status: Acute
[2018-09-04 15:08] LABS: MEAN CELL VOLUME 83.9 fl (81.0-99.0); MEAN CORPUSCULAR HEMOGLOBIN 29.1 pg (27.0-31.0); MEAN CORPUSCULAR HGB CONC 34.7 g/dL (33.0-37.0); RBC 3.07 Mil/uL (3.80-5.20); RED CELL DISTRIBUTION WIDTH 14.1 % (11.5-14.5); WHITE BLOOD COUNT 9.8 K/uL (4.8-10.8)
[2018-09-04 15:17] LABS: INR 1.2; PROTHROMBIN TIME 13.3 Seconds (9.8-13.1)
[2018-09-04 15:31] LABS: ALB/GLOB RATIO 1.1 (1.0-2.1); ALBUMIN 2.7 g/dL (3.5-5.0); ALT/SGPT 87 U/L (9-52); AST/SGOT 36 U/L (14-36); BILIRUBIN,DIRECT 0.3 mg/ml (0.0-0.4); BLOOD UREA NITROGEN 10 mg/dl (7-17); GFR NON-AFRICAN AMERICAN > 60
--- NOTE | 2018-09-04 15:51 | CP.PCM.CON ---
Past Patient History - Past Medical History & Family History Past Medical History?: Yes - Past Social History Alcohol: None Drugs: Denies - CARDIAC Hx Cardiac Disorders: Yes Hx Heart Murmur: Yes Other/Comment: cardiac valve repair, rheumatic disease - PULMONARY Hx Pneumonia: Yes - NEUROLOGICAL Hx Neurological Disorder: No - HEENT Hx HEENT Problems: No - RENAL Hx Chronic Kidney Disease: No - ENDOCRINE/METABOLIC Hx Endocrine Disorders: No - HEMATOLOGICAL/ONCOLOGICAL Hx Human Immunodeficiency Virus (HIV): No - INTEGUMENTARY Hx Dermatological Problems: No - MUSCULOSKELETAL/RHEUMATOLOGICAL Hx Musculoskeletal Disorders: No - GASTROINTESTINAL Hx Gastrointestinal Disorders: No - GENITOURINARY/GYNECOLOGICAL Hx Genitourinary Disorders: No - PSYCHIATRIC Hx Psychophysiologic Disorder: No Hx Substance Use: No - SURGICAL HISTORY Hx Cholecystectomy: Yes - ANESTHESIA Hx Anesthesia: Yes Hx Anesthesia Reactions: No Meds Allergies/Adverse Reactions: Allergies Allergy/AdvReac Type Severity Reaction Status Date / Time No Known Allergies Allergy Verified 09/02/18 12:26 - Medications Medications: Current Medications Pantoprazole Sodium 40 mg/ (Sodium Chloride) 100 mls @ 50 mls/hr IVPB Q5H [facility] Last Admin: 09/04/18 14:04 Dose: 50 mls/hr Sodium Chloride (Sodium Chloride 0.9%) 500 mls @ 1,000 mls/hr IV .Q30M [facility] Last Admin: 09/03/18 04:00 Dose: 1,000 mls/hr Lactated Ringer's (Lactated Ringer's) 1,000 mls @ 150 mls/hr IV .Q6H40M [facility] Last Admin: 09/04/18 08:45 Dose: 150 mls/hr Argatroban 250 mg/ Sodium (Chloride) 252.5 mls @ 2.27 mls/hr IV .Q24H [facility]; Protocol Last Admin: 09/04/18 15:43 Dose: 0.5 mcg/kg/min, 2.27 mls/hr Ondansetron HCl (Zofran Inj) 4 mg IVP Q6H PRN PRN Reason: Nausea/Vomiting Results - Vital Signs Recent Vital Signs: Last Vital Signs Temp 98.4 F 09/04/18 11:57 Pulse 78 09/04/18 14:00 Resp 17 09/04/18 14:00 BP 117/58 L 09/04/18 14:00 Pulse Ox 99 09/04/18 14:00 - Labs Result Diagrams: 09/04/18 15:06 09/04/18 15:06 Labs: Laboratory Results - last 24 hr 09/04/18 09/04/18 09/04/18 04:21 04:21 08:15 WBC 9.7 RBC 2.97 L Hgb 8.8 L Hct 24.9 L MCV 83.7 MCH 29.6 MCHC 35.3 RDW 14.2 Plt Count 120 L PT INR APTT Sodium 135 Potassium 3.7 Chloride 104 Carbon Dioxide 28 Anion Gap 7 L BUN 14 Creatinine 0.7 Est GFR ( Amer) > 60 Est GFR (Non-Af Amer) > 60 Random Glucose 91 Calcium 7.8 L Phosphorus Magnesium Total Bilirubin 0.5 Direct Bilirubin 0.2 AST 42 H D ALT 88 H D Alkaline Phosphatase 108 Total Protein 5.0 L Albumin 2.6 L D Globulin 2.4 Albumin/Globulin Ratio 1.1 09/04/18 09/04/18 09/04/18 15:06 15:06 15:06 WBC 9.8 RBC 3.07 L Hgb 9.0 L Hct 25.8 L MCV 83.9 MCH 29.1 MCHC 34.7 RDW 14.1 Plt Count 125 L PT 13.3 H INR 1.2 APTT 27.0 Sodium 135 Potassium 3.5 L Chloride 101 Carbon Dioxide 29 Anion Gap 9 L BUN 10 Creatinine 0.7 Est GFR ( Amer) > 60 Est GFR (Non-Af Amer) > 60 Random Glucose 86 Calcium 8.0 L Phosphorus 3.5 Magnesium 1.4 L Total Bilirubin 0.6 Direct Bilirubin 0.3 AST 36 ALT 87 H Alkaline Phosphatase 97 Total Protein 5.3 L Albumin 2.7 L Globulin 2.5 Albumin/Globulin Ratio 1.1 Assessment & Plan (1) H/O mitral valve replacement with mechanical valve Status: Acute (2) H/O mechanical aortic valve replacement Status: Acute (3) Choledochal cyst Status: Acute Priority: High (4) Choledocholithiasis with acute cholecystitis Status: Acute Priority: High (5) Gastrointestinal hemorrhage Status: Acute Priority: High - Assessment and Plan (Free Text) Plan: [facility]. ALTHOUGH HER PLT DROP IS LIKELY DILUTION HEME DOES NOT RECOMMEND RESTARTING HEPARIN UNTIL LABS ARE RESULTED. DIRECT THROMBIN INHIBITORS SHOULD NOT BE USED WITH MECH HEART VALVES. WE WILL START PT WARFARIN TODAY AT 10MG. RECOMMEND HOLDING OFF ON GI SURGERY FOR THE TIME BEING.
[2018-09-04] MEDS ORDERED: Magnesium Sulfate 2 gm/50 ml 2 GM/50 ML BAG IVPB ONE (16:45)
[2018-09-04] MEDS ORDERED: Potassium Chloride 20 mEq/15 ml LIQ UD PO ONE (16:46)
[2018-09-04 21:34] LABS: BASO # 0.1 K/uL (0.0-0.2); BASO % 0.7 % (0.0-2.0); EOS # 0.2 K/uL (0.0-0.7); LYMPH # 1.7 K/uL (1.0-4.3); LYMPH % 14.5 % (20.0-40.0); MEAN CELL VOLUME 84.4 fl (81.0-99.0); MEAN CORPUSCULAR HEMOGLOBIN 29.2 pg (27.0-31.0); MEAN CORPUSCULAR HGB CONC 34.5 g/dL (33.0-37.0); MEAN PLATELET VOLUME 8.2 fl (7.2-11.7); MONO # 0.9 K/uL (0.0-0.8); MONO % 7.9 % (0.0-10.0); NEUT # 8.7 K/uL (1.8-7.0); NEUT % 74.9 % (50.0-75.0); RBC 3.1 Mil/uL (3.80-5.20); WHITE BLOOD COUNT 11.6 K/uL (4.8-10.8)
[2018-09-05] MEDS: Lactated Ringer's 1,000 ML IV SCH (03:16)
[2018-09-05 05:40] LABS: HEMOGLOBIN 8.6 g/dL (12.0-16.0); MEAN CELL VOLUME 85.9 fl (81.0-99.0); MEAN CORPUSCULAR HEMOGLOBIN 29.5 pg (27.0-31.0); MEAN CORPUSCULAR HGB CONC 34.4 g/dL (33.0-37.0); RBC 2.92 Mil/uL (3.80-5.20); RED CELL DISTRIBUTION WIDTH 14.3 % (11.5-14.5); WHITE BLOOD COUNT 9.1 K/uL (4.8-10.8)
[2018-09-05 05:41] LABS: INR 1.1
[2018-09-05 05:43] LABS: PARTIAL THROMBOPLASTIN TIME 26.8 Seconds (25.6-37.1)
[2018-09-05 06:00] LABS: ALBUMIN 2.6 g/dL (3.5-5.0); ALT/SGPT 70 U/L (9-52); AST/SGOT 30 U/L (14-36); BLOOD UREA NITROGEN 11 mg/dl (7-17); CALCIUM 7.9 mg/dL (8.4-10.2); GFR NON-AFRICAN AMERICAN > 60
[2018-09-05 06:32] LABS: FERRITIN 75.5 ng/Ml (6.24-137.0)
--- NOTE | 2018-09-05 08:55 | CP.PCM.PN ---
<Yarelis Ford - Last Filed: 09/05/18 10:55> Subjective - Date & Time of Evaluation Date of Evaluation: 09/05/18 Time of Evaluation: 08:55 - Subjective Subjective: Patient seen and examined at bedside. Denies any complaints. Tolerating PO intake and had a BM yesterday. No acute events overnight. Hemodynamically stable. Objective - Vital Signs/Intake and Output Vital Signs (last 24 hours): Temp Pulse Resp BP Pulse Ox 98.2 F 84 12 100/61 100 09/05/18 08:00 09/05/18 08:00 09/05/18 08:00 09/05/18 08:00 09/05/18 08:00 Intake and Output: 09/05/18 09/05/18 06:59 18:59 Intake Total 1860 150 Output Total 1950 Balance -90 150 - Medications Medications: Current Medications Cyanocobalamin (Vitamin B12 1000 Mcg/Ml Inj) 1,000 mcg IM DAILY [facility] Sodium Chloride (Sodium Chloride 0.9%) 500 mls @ 1,000 mls/hr IV .Q30M [facility] Last Admin: 09/03/18 04:00 Dose: 1,000 mls/hr Lactated Ringer's (Lactated Ringer's) 1,000 mls @ 150 mls/hr IV .Q6H40M [facility] Last Admin: 09/05/18 03:16 Dose: 150 mls/hr Ondansetron HCl (Zofran Inj) 4 mg IVP Q6H PRN PRN Reason: Nausea/Vomiting Pantoprazole Sodium (Protonix Ec Tab) 40 mg PO BID [facility] Warfarin Sodium (Coumadin) 10 mg PO QD5 [facility]; Protocol Stop: 09/05/18 17:01 - Labs Labs: 09/05/18 04:11 09/05/18 04:11 PT 13.0 Seconds (9.8-13.1) 09/05/18 04:11 INR 1.1 09/05/18 04:11 APTT 26.8 Seconds (25.6-37.1) 09/05/18 04:11 - Constitutional Appears: Non-toxic, No Acute Distress - Eye Exam Eye Exam: Normal appearance - ENT Exam ENT Exam: Mucous Membranes Moist - Respiratory Exam Respiratory Exam: Clear to Ausculation Bilateral, NORMAL BREATHING PATTERN. absent: Accessory Muscle Use, Chest Wall Tenderness, Decreased Breath Sounds, Prolonged Expiratory Phase, Rales, Rhonchi, Wheezes, Respiratory Distress, Stridor - Cardiovascular Exam Cardiovascular Exam: +S1, +S2, Murmur - GI/Abdominal Exam GI & Abdominal Exam: Soft, Normal Bowel Sounds. absent: Distended, Firm, Guarding, Rigid, Tenderness, Rebound - Extremities Exam Extremities Exam: Normal Capillary Refill, Normal Inspection. absent: Calf Tenderness, Pedal Edema, Tenderness - Neurological Exam Neurological Exam: Alert, Awake, Oriented x3 - Psychiatric Exam Psychiatric exam: Normal Affect, Normal Mood - Skin Skin Exam: Dry, Intact, Normal Color, Warm Assessment and Plan - Assessment and Plan (Free Text) Assessment: 42 to female with history of cardiac valve repair (x2-aortic and mitral repair) on lovenox, presented to [facility] because of vomiting blood clots admitted for upper GI bleed. Patient underwent endoscopy 09/03 which showed hemorrhagic gastritis gastric ulcer. Patient receiving a total of 4 units of pRBC and 2 units FFP. Patient is now tolerating regular diet. Warfarin was restarted a 10mg. Following INR at this time- subtherapeutic. Plan: Upper GI bleed - ERCP with sphincterotomy performed 08/30 - S/P endoscopy 09/03 - hemorrhagic gastritis gastric non-bleding ulcer- pending final report - Monitor vitals - H/H: stable s/p 4 units pRBC and 2 units FFP. - FOBT: positive - S/P Protonix 80 IVP x1 (loading dose) - s/p Protonix 40mg Q5H - Protonix PO at this time given IVP is back order. 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 Dilated CBD measures 17 mm in diameter. Small filling defect present measuring 6 mm, possibly small calculus. Distal CBD demonstrates abrupt taper; primary or secondary stricture not excluded. Intrahepatic biliary ductal dilatation. Transaminitis - Trending down - AST/ALT: 64 / 210 - Alk Phos: 279 - LDH: 781 - Trending down since last admission- secondary to choledolithiasis - Trend labs. Thrombocytopenia - Consult Hem/Onc- Dr. Roa - trending back up today - Lab work sent for HIT at this time Mechanical valves - S/P mitral and aortic valve repair - Metoprolol and Lovenox on hold at this time given GI bleed and hypotension -Cardiology consult appreciated - started Warfarin 10mg and following the INR DVT prophylaxis - SCD at this time - no anticoagulation at this time given upper GI bleed. <Nancy Shafer - Last Filed: 09/05/18 17:05> Objective - Vital Signs/Intake and Output Vital Signs (last 24 hours): Temp Pulse Resp BP Pulse Ox 98.0 F 78 23 105/54 L 100 09/05/18 16:00 09/05/18 16:00 09/05/18 16:00 09/05/18 16:00 09/05/18 16:00 Intake and Output: 09/05/18 09/05/18 06:59 18:59 Intake Total 1860 700 Output Total 1950 Balance -90 700 - Medications Medications: Current Medications Sodium Chloride (Sodium Chloride 0.9%) 500 mls @ 1,000 mls/hr IV .Q30M [facility] Last Admin: 09/03/18 04:00 Dose: 1,000 mls/hr Lactated Ringer's (Lactated Ringer's) 1,000 mls @ 150 mls/hr IV .Q6H40M [facility] Last Admin: 09/05/18 03:16 Dose: 150 mls/hr Ondansetron HCl (Zofran Inj) 4 mg IVP Q6H PRN PRN Reason: Nausea/Vomiting Pantoprazole Sodium (Protonix Ec Tab) 40 mg PO BID [facility] Last Admin: 09/05/18 09:26 Dose: 40 mg - Labs Labs: 09/05/18 04:11 09/05/18 04:11 PT 13.0 Seconds (9.8-13.1) 09/05/18 04:11 INR 1.1 09/05/18 04:11 APTT 26.8 Seconds (25.6-37.1) 09/05/18 04:11 Attending/Attestation - Attestation I have personally seen and examined this patient.: Yes I have fully participated in the care of the patient.: Yes I have reviewed all pertinent clinical information, including history, physical exam and plan: Yes Notes (Text): Upper GI Bleed prob from Gastritis Acute Blood Loss Anemia from GI Bleed Thrombocytopenia ? Dilutional from Blood TRansfusion r/o HIT - now resolved Abnormal LFTs with Choledocholithiasis ( Hx of Cholecystectomy) s/p ERCP with Sphincterotomy Choledochal Cyst History of Mechanical Valve Replacement cont Protonix drip Pt had EGD - showed Hemorrhagic Gastritis , no active bleeding monitor CBC - stable so far since transfusion, no signs of active bleed Hematology consulted- discussed case with Dr Roa - unlikely HIT but he rec to start Argatroban however Cardio Dr Trent recommended against Argatroban and wants only Coumadin ff up on HIT work up, Platelet now normal Surgery on case - will hold off with any surgery for the Choledochal cyst for now Tolerating Regular diet Coumadin 10 mg today, monitor PT/INR and H/H
[2018-09-05] MEDS ORDERED: Pantoprazole 40 mg EC Tab PO SCH (09:00)
[2018-09-05] MEDS: Pantoprazole 40 mg EC Tab PO SCH ×2 (09:26→17:06)
--- NOTE | 2018-09-05 10:35 | CP.PCM.PN ---
<Johnathann - Last Filed: 09/05/18 10:37> Subjective - Date & Time of Evaluation Date of Evaluation: 09/05/18 Time of Evaluation: 10:32 - Subjective Subjective: Surgery Progress Note- Dr. Ortega No new complaints at this time. GCS 15, AAOx3, non-focal. Denies Bloody BM overnight. off protonix ggt, currently IVP BID. No signs of active bleeding. Denies fevers, chills, chest pain shortness of breath. Received dose of Coumadin yesterday, remains sub-therapeutic this AM. Objective - Vital Signs/Intake and Output Vital Signs (last 24 hours): Temp Pulse Resp BP Pulse Ox 98.2 F 84 12 100/61 100 09/05/18 08:00 09/05/18 08:00 09/05/18 08:00 09/05/18 08:00 09/05/18 08:00 Intake and Output: 09/05/18 09/05/18 06:59 18:59 Intake Total 1860 150 Output Total 1950 Balance -90 150 - Medications Medications: Current Medications Cyanocobalamin (Vitamin B12 1000 Mcg/Ml Inj) 1,000 mcg IM DAILY [facility] Last Admin: 09/05/18 09:26 Dose: 1,000 mcg Sodium Chloride (Sodium Chloride 0.9%) 500 mls @ 1,000 mls/hr IV .Q30M [facility] Last Admin: 09/03/18 04:00 Dose: 1,000 mls/hr Lactated Ringer's (Lactated Ringer's) 1,000 mls @ 150 mls/hr IV .Q6H40M [facility] Last Admin: 09/05/18 03:16 Dose: 150 mls/hr Ondansetron HCl (Zofran Inj) 4 mg IVP Q6H PRN PRN Reason: Nausea/Vomiting Pantoprazole Sodium (Protonix Ec Tab) 40 mg PO BID [facility] Last Admin: 09/05/18 09:26 Dose: 40 mg Warfarin Sodium (Coumadin) 10 mg PO QD5 [facility]; Protocol Stop: 09/05/18 17:01 - Labs Labs: 09/05/18 04:11 09/05/18 04:11 PT 13.0 Seconds (9.8-13.1) 09/05/18 04:11 INR 1.1 09/05/18 04:11 APTT 26.8 Seconds (25.6-37.1) 09/05/18 04:11 - Constitutional Appears: Non-toxic, No Acute Distress - Head Exam Head Exam: ATRAUMATIC - Eye Exam Eye Exam: EOMI. absent: Scleral icterus - ENT Exam ENT Exam: Mucous Membranes Moist - Respiratory Exam Respiratory Exam: NORMAL BREATHING PATTERN. absent: Accessory Muscle Use, Respiratory Distress - Cardiovascular Exam Cardiovascular Exam: REGULAR RHYTHM. absent: Bradycardia, Tachycardia - GI/Abdominal Exam GI & Abdominal Exam: Soft. absent: Distended, Firm, Guarding, Rigid, Tenderness - Neurological Exam Neurological Exam: Alert, Awake, Oriented x3 - Psychiatric Exam Psychiatric exam: Normal Affect - Skin Skin Exam: Intact, Warm Assessment and Plan - Assessment and Plan (Free Text) Assessment: 42F w/ choledochal cyst admitted for GIB s/p EGD showing non-bleeding ulcer active bleeding at this time Total transfusions: 4PRBC, 2FFP Plan: - Due to patient mechanical heart valve cardiology recs- Coumadin - Undergoing workup for HIT - monitor h/h; transfuse prn - monitor for further bleeding - will hold off on choledochal cystectomy until medically stable - further recs per Dr. Davis PGY2 <Rusty Schneider - Last Filed: 09/06/18 13:38> Objective - Vital Signs/Intake and Output Vital Signs (last 24 hours): Temp Pulse Resp BP Pulse Ox 98.2 F 76 14 118/63 100 09/06/18 11:56 09/06/18 12:52 09/06/18 12:52 09/06/18 12:52 09/06/18 12:52 Intake and Output: 09/06/18 09/06/18 06:59 18:59 Intake Total 50 100 Balance 50 100 - Medications Medications: Current Medications Ondansetron HCl (Zofran Inj) 4 mg IVP Q6H PRN PRN Reason: Nausea/Vomiting Pantoprazole Sodium (Protonix Ec Tab) 40 mg PO BID [facility] Last Admin: 09/06/18 08:45 Dose: 40 mg Warfarin Sodium (Coumadin) 10 mg PO QD5 [facility]; Protocol Stop: 09/06/18 17:01 - Labs Labs: 09/06/18 08:30 09/06/18 06:15 PT 16.8 Seconds (9.8-13.1) H 09/06/18 06:15 INR 1.5 09/06/18 06:15 APTT 26.8 Seconds (25.6-37.1) 09/05/18 04:11 Assessment and Plan - Assessment and Plan (Free Text) Plan: All medical record entries made by the resident were at my direction. I have reviewed the chart and agree that the record accurately reflects my personal performance of the history, physical exam, and medical decision making.
--- NOTE | 2018-09-05 15:56 | CP.PCM.PN ---
Subjective - Date & Time of Evaluation Date of Evaluation: 09/05/18 Time of Evaluation: 15:56 - Subjective Subjective: NO CP OR SOB SR ON TELE Objective - Vital Signs/Intake and Output Vital Signs (last 24 hours): Temp Pulse Resp BP Pulse Ox 98.2 F 83 17 112/61 100 09/05/18 12:00 09/05/18 14:00 09/05/18 14:00 09/05/18 14:00 09/05/18 14:00 Intake and Output: 09/05/18 09/05/18 06:59 18:59 Intake Total 1860 700 Output Total 1950 Balance -90 700 - Medications Medications: Current Medications Sodium Chloride (Sodium Chloride 0.9%) 500 mls @ 1,000 mls/hr IV .Q30M [facility] Last Admin: 09/03/18 04:00 Dose: 1,000 mls/hr Lactated Ringer's (Lactated Ringer's) 1,000 mls @ 150 mls/hr IV .Q6H40M [facility] Last Admin: 09/05/18 03:16 Dose: 150 mls/hr Ondansetron HCl (Zofran Inj) 4 mg IVP Q6H PRN PRN Reason: Nausea/Vomiting Pantoprazole Sodium (Protonix Ec Tab) 40 mg PO BID [facility] Last Admin: 09/05/18 09:26 Dose: 40 mg Warfarin Sodium (Coumadin) 10 mg PO QD5 [facility]; Protocol Stop: 09/05/18 17:01 - Labs Labs: 09/05/18 04:11 09/05/18 04:11 PT 13.0 Seconds (9.8-13.1) 09/05/18 04:11 INR 1.1 09/05/18 04:11 APTT 26.8 Seconds (25.6-37.1) 09/05/18 04:11 Assessment and Plan (1) H/O mitral valve replacement with mechanical valve Status: Acute (2) H/O mechanical aortic valve replacement Status: Acute (3) Choledochal cyst Status: Acute (4) Choledocholithiasis with acute cholecystitis Status: Acute (5) Gastrointestinal hemorrhage Status: Acute - Assessment and Plan (Free Text) Plan: WARFARIN 10MG TODAY. I RECOMMEND WAITING ON ANY SURGICAL PROCEDURES.
[2018-09-06 06:40] LABS: INR 1.5; PROTHROMBIN TIME 16.8 Seconds (9.8-13.1)
[2018-09-06 07:34] LABS: ALB/GLOB RATIO 1.3 (1.0-2.1); ALBUMIN 3.5 g/dL (3.5-5.0); ALT/SGPT 65 U/L (9-52); AST/SGOT 31 U/L (14-36); BLOOD UREA NITROGEN 15 mg/dl (7-17); CALCIUM 8.4 mg/dL (8.4-10.2); GFR NON-AFRICAN AMERICAN > 60
[2018-09-06] MEDS: Pantoprazole 40 mg EC Tab PO SCH (08:45)
[2018-09-06 08:48] LABS: HEMOGLOBIN 9.4 g/dL (12.0-16.0); MEAN CELL VOLUME 86.8 fl (81.0-99.0); MEAN CORPUSCULAR HEMOGLOBIN 29.5 pg (27.0-31.0); RBC 3.17 Mil/uL (3.80-5.20); RED CELL DISTRIBUTION WIDTH 14.2 % (11.5-14.5); WHITE BLOOD COUNT 9.6 K/uL (4.8-10.8)
[2018-09-06 08:54] VITALS: O2SAT 100
--- NOTE | 2018-09-06 09:59 | CP.PCM.PN ---
<Axel Juan - Last Filed: 09/06/18 09:59> Subjective - Date & Time of Evaluation Date of Evaluation: 09/06/18 Time of Evaluation: 09:53 - Subjective Subjective: Surgery Progress note- Dr. Ortega Pt seen and examined at bedside. feeling significantly better. Tolerating current diet. Feels like she needs to have a BM during encounter. No bloody BMs noted overnight. + OOB and ambulating. Denies fevers, chills, chest pain, shortness of breath. Objective - Vital Signs/Intake and Output Vital Signs (last 24 hours): Temp Pulse Resp BP Pulse Ox 98.6 F 85 18 113/59 L 100 09/06/18 08:04 09/06/18 08:54 09/06/18 08:54 09/06/18 08:54 09/06/18 08:54 Intake and Output: 09/06/18 09/06/18 06:59 18:59 Intake Total 50 100 Balance 50 100 - Medications Medications: Current Medications Ondansetron HCl (Zofran Inj) 4 mg IVP Q6H PRN PRN Reason: Nausea/Vomiting Pantoprazole Sodium (Protonix Ec Tab) 40 mg PO BID [facility] Last Admin: 09/06/18 08:45 Dose: 40 mg - Labs Labs: 09/06/18 08:30 09/06/18 06:15 PT 16.8 Seconds (9.8-13.1) H 09/06/18 06:15 INR 1.5 09/06/18 06:15 APTT 26.8 Seconds (25.6-37.1) 09/05/18 04:11 - Constitutional Appears: Non-toxic, No Acute Distress - Head Exam Head Exam: ATRAUMATIC - Eye Exam Eye Exam: EOMI. absent: Scleral icterus - ENT Exam ENT Exam: Mucous Membranes Moist - Respiratory Exam Respiratory Exam: NORMAL BREATHING PATTERN. absent: Accessory Muscle Use, Respiratory Distress - Cardiovascular Exam Cardiovascular Exam: REGULAR RHYTHM. absent: Bradycardia, Tachycardia - GI/Abdominal Exam GI & Abdominal Exam: Soft. absent: Distended, Firm, Guarding, Rigid, Tenderness - Extremities Exam Extremities Exam: absent: Calf Tenderness - Neurological Exam Neurological Exam: Alert, Awake, Oriented x3 - Psychiatric Exam Psychiatric exam: Normal Affect - Skin Skin Exam: Intact, Warm Assessment and Plan - Assessment and Plan (Free Text) Assessment: 42F w/ choledochal cyst admitted for GIB s/p EGD showing non-bleeding ulcer active bleeding at this time Total transfusions: 4PRBC, 2FFP Plan: - Due to patient mechanical heart valve cardiology recs- Coumadin - follow up HIT pannel - monitor h/h; transfuse prn - monitor for further bleeding - medical optimization and clearance prior to choledochal cystectomy - d/w Dr. Light PGY2 <Rusty Schneider N - Last Filed: 09/06/18 13:34> Objective - Vital Signs/Intake and Output Vital Signs (last 24 hours): Temp Pulse Resp BP Pulse Ox 98.2 F 76 14 118/63 100 09/06/18 11:56 09/06/18 12:52 09/06/18 12:52 09/06/18 12:52 09/06/18 12:52 Intake and Output: 09/06/18 09/06/18 06:59 18:59 Intake Total 50 100 Balance 50 100 - Medications Medications: Current Medications Ondansetron HCl (Zofran Inj) 4 mg IVP Q6H PRN PRN Reason: Nausea/Vomiting Pantoprazole Sodium (Protonix Ec Tab) 40 mg PO BID [facility] Last Admin: 09/06/18 08:45 Dose: 40 mg Warfarin Sodium (Coumadin) 10 mg PO QD5 [facility]; Protocol Stop: 09/06/18 17:01 - Labs Labs: 09/06/18 08:30 09/06/18 06:15 PT 16.8 Seconds (9.8-13.1) H 09/06/18 06:15 INR 1.5 09/06/18 06:15 APTT 26.8 Seconds (25.6-37.1) 09/05/18 04:11 Assessment and Plan - Assessment and Plan (Free Text) Plan: All medical record entries made by the resident were at my direction. I have reviewed the chart and agree that the record accurately reflects my personal performance of the history, physical exam, and medical decision making. Although choledochocyst needs removal, will wait until she fully recovers from GI bleed, HIT is addressed, and her anticoagulation is stable
--- NOTE | 2018-09-06 10:13 | CP.PCM.PN ---
Subjective - Date & Time of Evaluation Date of Evaluation: 09/05/18 Time of Evaluation: 16:00 - Subjective Subjective: no overnight events Objective - Vital Signs/Intake and Output Vital Signs (last 24 hours): Temp Pulse Resp BP Pulse Ox 98.6 F 85 18 113/59 L 100 09/06/18 08:04 09/06/18 08:54 09/06/18 08:54 09/06/18 08:54 09/06/18 08:54 Intake and Output: 09/06/18 09/06/18 06:59 18:59 Intake Total 50 100 Balance 50 100 - Medications Medications: Current Medications Ondansetron HCl (Zofran Inj) 4 mg IVP Q6H PRN PRN Reason: Nausea/Vomiting Pantoprazole Sodium (Protonix Ec Tab) 40 mg PO BID [facility] Last Admin: 09/06/18 08:45 Dose: 40 mg - Labs Labs: 09/06/18 08:30 09/06/18 06:15 PT 16.8 Seconds (9.8-13.1) H 09/06/18 06:15 INR 1.5 09/06/18 06:15 APTT 26.8 Seconds (25.6-37.1) 09/05/18 04:11 - Neck Exam Neck Exam: Normal Inspection - Cardiovascular Exam Cardiovascular Exam: REGULAR RHYTHM - GI/Abdominal Exam GI & Abdominal Exam: Soft, Normal Bowel Sounds Assessment and Plan - Assessment and Plan (Free Text) Assessment: 42 yo female with UGIB hgb stable dc planning
[2018-09-06 11:56] VITALS: TEMP 98.2
--- NOTE | 2018-09-06 12:00 | CP.PCM.PN ---
Subjective - Date & Time of Evaluation Date of Evaluation: 09/06/18 Time of Evaluation: 09:15 - Subjective Subjective: Patient seen and examined at bedside. Reports she is feeling much better. Had maroon colored stool this morning. Tolerating PO intake. No nausea, vomiting or abdominal pain. No acute overnight events. Objective - Vital Signs/Intake and Output Vital Signs (last 24 hours): Temp Pulse Resp BP Pulse Ox 98.2 F 77 21 116/65 100 09/06/18 11:56 09/06/18 11:56 09/06/18 11:56 09/06/18 11:56 09/06/18 11:56 Intake and Output: 09/06/18 09/06/18 06:59 18:59 Intake Total 50 100 Balance 50 100 - Medications Medications: Current Medications Ondansetron HCl (Zofran Inj) 4 mg IVP Q6H PRN PRN Reason: Nausea/Vomiting Pantoprazole Sodium (Protonix Ec Tab) 40 mg PO BID RADHA Last Admin: 09/06/18 08:45 Dose: 40 mg - Labs Labs: 09/06/18 08:30 09/06/18 06:15 PT 16.8 Seconds (9.8-13.1) H 09/06/18 06:15 INR 1.5 09/06/18 06:15 APTT 26.8 Seconds (25.6-37.1) 09/05/18 04:11 - Constitutional Appears: Non-toxic, No Acute Distress - Eye Exam Eye Exam: Normal appearance - ENT Exam ENT Exam: Mucous Membranes Moist - Respiratory Exam Respiratory Exam: Clear to Ausculation Bilateral, NORMAL BREATHING PATTERN. absent: Accessory Muscle Use, Chest Wall Tenderness, Decreased Breath Sounds, Prolonged Expiratory Phase, Rales, Rhonchi, Wheezes, Respiratory Distress, Stridor - Cardiovascular Exam Cardiovascular Exam: +S1, +S2, Murmur - GI/Abdominal Exam GI & Abdominal Exam: Soft, Normal Bowel Sounds. absent: Distended, Firm, Rigid, Tenderness, Rebound - Extremities Exam Extremities Exam: Full ROM, Normal Capillary Refill, Normal Inspection. 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 Patient underwent endoscopy 09/03 which showed hemorrhagic gastritis gastric ulcer. Patient recieving a total of 4 units of pRBC and 2 units FFP. Patient is now tolerating regular diet. Warfarin was restarted at 10mg. Pending HIT laboratory to return. GI, Hem/Onc and Cardiology consulted. Following INR at this time- subtherapeutic. Being transferred to telemetry from ICU given patient is now stable. Plan: Upper GI bleed - ERCP with sphincterotomy performed 08/30 - S/P endoscopy 09/03 - hemorrhagic gastritis gastric non-bleding ulcer- pending final report - Monitor vitals - H/H: stable s/p 4 units pRBC and 2 units FFP. 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 Dilated CBD measures 17 mm in diameter. Small filling defect present measuring 6 mm, possibly small calculus. Distal CBD demonstrates abrupt taper; primary or secondary stricture not excluded. Intrahepatic biliary ductal dilatation. Transaminitis - Trending down - AST/ALT: 64 / 210 - Alk Phos: 279 - LDH: 781 - Trending down since last admission- secondary to choledolithiasis - Trend labs. Thrombocytopenia - Consult Hem/Onc- Dr. Roa - trending back up today - F/U HIT labs Mechanical valves - S/P mitral and aortic valve repair - Metoprolol and Lovenox on hold at this time given GI bleed and hypotension -Cardiology consult appreciated - started Warfarin 10mg and following the INR DVT prophylaxis - SCD at this time - no anticoagulation at this time given upper GI bleed.
[2018-09-06 12:53] VITALS: BP 118/63; PULSE 76; RESP 14
--- NOTE | 2018-09-06 15:06 | CP.PCM.DIS ---
Provider - Provider Date of Admission: 09/02/18 14:00 Attending physician: Lit Hsieh MD Consults: 09/02/18 13:57 Gastroenterology Consult Stat Comment: DR CANDELARIA MADE AWARE 145p Consulting Provider: Kaiser Candelaria Consulting Physician: Kaiser Candelaria Reason for Consult: GI bleed recent ERCP 09/02/18 14:47 Critical Care Consult Stat Comment: MADE AWARE Consulting Provider: Jane Chaparro Consulting Physician: Jane Chaparro Reason for Consult: gi bleed Surgery [General Surgery Consult] Stat Comment: resident made aware Consulting Provider: Rusty Burns Consulting Physician: Rusty Burns Reason for Consult: choledochal cyst 09/03/18 10:53 Cardiology Consult Routine Comment: Consulting Provider: Lico Trent Consulting Physician: Lico Trent Reason for Consult: GI bleed with mechanical prosthetic valve 09/04/18 07:28 Hematology Oncology Consult Routine Comment: Consulting Provider: Jamie Roa Consulting Physician: Jamie Roa Reason for Consult: decrease in platelet count; Time Spent in preparation of Discharge (in minutes): 30 Diagnosis - Discharge Diagnosis (1) Upper GI bleed Status: Acute Hospital Course - Lab Results Lab Results: Micro Results 09/02/18 13:10 Blood-Venous Blood Culture - Preliminary NO GROWTH AFTER 4 DAYS 09/02/18 12:56 Blood-Venous Blood Culture - Preliminary NO GROWTH AFTER 4 DAYS 09/02/18 20:30 Naris MRSA Culture (Admit) - Final MRSA NOT DETECTED Most Recent Lab Values WBC 9.6 K/uL (4.8-10.8) 09/06/18 08:30 RBC 3.17 Mil/uL (3.80-5.20) L 09/06/18 08:30 Hgb 9.4 g/dL (12.0-16.0) L 09/06/18 08:30 Hct 27.5 % (34.0-47.0) L 09/06/18 08:30 MCV 86.8 fl (81.0-99.0) 09/06/18 08:30 MCH 29.5 pg (27.0-31.0) 09/06/18 08:30 MCHC 34.0 g/dL (33.0-37.0) 09/06/18 08:30 RDW 14.2 % (11.5-14.5) 09/06/18 08:30 Plt Count 183 K/uL (130-400) 09/06/18 08:30 MPV 8.2 fl (7.2-11.7) 09/04/18 21:15 Neut % (Auto) 74.9 % (50.0-75.0) 09/04/18 21:15 Lymph % (Auto) 14.5 % (20.0-40.0) L 09/04/18 21:15 [place] % (Auto) 7.9 % (0.0-10.0) 09/04/18 21:15 Eos % (Auto) 2.0 % (0.0-4.0) 09/04/18 21:15 Baso % (Auto) 0.7 % (0.0-2.0) 09/04/18 21:15 Neut # (Auto) 8.7 K/uL (1.8-7.0) H 09/04/18 21:15 Lymph # (Auto) 1.7 K/uL (1.0-4.3) 09/04/18 21:15 [place] # (Auto) 0.9 K/uL (0.0-0.8) H 09/04/18 21:15 Eos # (Auto) 0.2 K/uL (0.0-0.7) 09/04/18 21:15 Baso # (Auto) 0.1 K/uL (0.0-0.2) 09/04/18 21:15 Neutrophils % (Manual) 83 % (42-75) H 09/03/18 00:20 Band Neutrophils % 1 % (0-2) 09/03/18 00:20 Lymphocytes % (Manual) 8 % (20-50) L 09/03/18 00:20 Monocytes % (Manual) 8 % (0-10) 09/03/18 00:20 Toxic Granulation Present 09/03/18 00:20 Platelet Estimate Normal (NORMAL) 09/03/18 00:20 Hypochromasia (manual) Slight 09/03/18 00:20 Poikilocytosis (manual Slight 09/03/18 00:20 Anisocytosis (manual) Slight 09/03/18 00:20 Target Cells Slight 09/03/18 00:20 [place] Cells Slight 09/03/18 00:20 Retic Count 3.3 % (0.5-1.5) H 09/05/18 04:11 PT 16.8 Seconds (9.8-13.1) H 09/06/18 06:15 INR 1.5 09/06/18 06:15 APTT 26.8 Seconds (25.6-37.1) 09/05/18 04:11 Fibrinogen 219 mg/dl (200-400) 09/05/18 04:11 pO2 42 mm/Hg (30-55) 09/02/18 12:38 VBG pH 7.43 (7.32-7.43) 09/02/18 12:38 VBG pCO2 33 mmHg (40-60) L 09/02/18 12:38 VBG HCO3 23.1 mmol/L 09/02/18 12:38 VBG Total CO2 22.9 mmol/L (22-28) 09/02/18 12:38 VBG O2 Sat (Calc) 88.1 % (40-65) H 09/02/18 12:38 VBG Base Excess -2.0 mmol/L (0.0-2.0) L 09/02/18 12:38 VBG Potassium 5.0 mmol/L (3.6-5.2) 09/02/18 12:38 Sodium 134.0 mmol/L (132-148) 09/02/18 12:38 Chloride 107.0 mmol/L (98-107) 09/02/18 12:38 Glucose 124 mg/dL (65-105) H 09/02/18 12:38 Lactate 1.6 mmol/L (0.7-2.1) 09/02/18 12:38 FiO2 21.0 % 09/02/18 12:38 Sodium 136 mmol/l (132-148) 09/06/18 06:15 Potassium 3.8 MMOL/L (3.6-5.0) 09/06/18 06:15 Chloride 102 mmol/L (98-107) 09/06/18 06:15 Carbon Dioxide 28 mmol/L (22-30) 09/06/18 06:15 Anion Gap 10 (10-20) 09/06/18 06:15 BUN 15 mg/dl (7-17) 09/06/18 06:15 Creatinine 0.8 mg/dl (0.7-1.2) 09/06/18 06:15 Est GFR ( Amer) > 60 09/06/18 06:15 Est GFR (Non-Af Amer) > 60 09/06/18 06:15 POC Glucose (mg/dL) 98 mg/dL (65-110) 09/02/18 12:55 Random Glucose 118 mg/dL (65-105) H 09/06/18 06:15 Calcium 8.4 mg/dL (8.4-10.2) 09/06/18 06:15 Phosphorus 4.0 mg/dl (2.5-4.5) 09/06/18 06:15 Magnesium 1.7 MG/DL (1.6-2.3) 09/06/18 06:15 Ferritin 75.5 ng/Ml (6.24-137.0) 09/05/18 04:11 Total Bilirubin 0.4 mg/dl (0.2-1.3) 09/06/18 06:15 Direct Bilirubin 0.3 mg/ml (0.0-0.4) 09/04/18 15:06 AST 31 U/L (14-36) 09/06/18 06:15 ALT 65 U/L (9-52) H 09/06/18 06:15 Alkaline Phosphatase 107 U/L (38-126) 09/06/18 06:15 Lactate Dehydrogenase 781 U/L (313-618) H 09/02/18 12:55 Total Protein 6.2 G/DL (6.3-8.2) L 09/06/18 06:15 Albumin 3.5 g/dL (3.5-5.0) D 09/06/18 06:15 Globulin 2.8 gm/dL (2.2-3.9) 09/06/18 06:15 Albumin/Globulin Ratio 1.3 (1.0-2.1) 09/06/18 06:15 Amylase 106 U/L (30-110) 09/02/18 12:55 Lipase 95 U/L (23-300) 09/02/18 12:55 Vitamin B12 369 pg/mL (239-931) 09/05/18 04:11 Folate 9.0 ng/mL 09/05/18 04:11 Venous Blood Potassium 5.0 mmol/L (3.6-5.2) 09/02/18 12:38 Urine HCG, Qual Negative (NEGATIVE) 09/03/18 08:41 Stool Occult Blood Positive (NEGATIVE) H 09/02/18 12:48 Heparin-induced Plt Ab Negative (Negative) 09/04/18 08:15 Hep-Induced Plt Ab Cmmt 0.095 09/04/18 08:15 HIPA Patient OD 0.096 09/04/18 08:15 HIV 1&2 Antibody Screen Negative (NEGATIVE) 09/05/18 04:11 Blood Type A POSITIVE 09/02/18 12:56 Antibody Screen Negative 09/02/18 12:56 Crossmatch See Detail 09/02/18 12:56 BBK History Checked Patient has bt 09/02/18 12:56 - Hospital Course Hospital Course: 42 to female with 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 Patient underwent endoscopy 09/03 which showed hemorrhagic gastritis gastric ulcer. Patient receiving a total of 4 units of pRBC and 2 units FFP. Patient is tolerating regular diet. Warfarin was restarted at 10mg during hospital stay. Discharged on warfarin 5 mg po daily for 3 days. Following INR at this time- subtherapeutic. Will have repeat INR in two days (script given to patient) and will follow up with Dr. Sherman this week. Patient will also follow up with Dr. Burns and Dr. Traylor outpatient. Discharge Exam - Head Exam Head Exam: ATRAUMATIC - Eye Exam Eye Exam: Normal appearance - ENT Exam ENT Exam: Mucous Membranes Moist - Respiratory Exam Respiratory Exam: Clear to PA & Lateral, NORMAL BREATHING PATTERN, UNREMARKABLE. absent: Accessory Muscle Use, Chest Wall Tenderness, Decreased Breath Sounds, Prolonged Expiratory Phase, Rales, Rhonchi, Wheezes, Respiratory Distress, Stridor - Cardiovascular Exam Cardiovascular Exam: Clicks, REGULAR RHYTHM, +S1, +S2, Systolic Murmur - GI/Abdominal Exam GI & Abdominal Exam: Normal Bowel Sounds, Soft, Unremarkable. absent: Distended, Firm, Guarding, Rebound, Rigid, Tenderness - Extremities Exam Extremities exam: full ROM, normal capillary refill, normal inspection, pedal pulses present - Neurological Exam Neurological exam: Alert, Oriented x3 - Psychiatric Exam Psychiatric exam: Normal Affect, Normal Mood - Skin Skin Exam: Dry, Intact, Normal Color, Warm Discharge Plan - Discharge Medications Prescriptions: Pantoprazole [Protonix EC Tab] 40 mg PO BID #60 tab Warfarin [Coumadin] 5 mg PO DAILY #3 tab - Follow Up Plan Condition: STABLE Disposition: HOME/ ROUTINE Patient education suggested?: Yes Instructions: Acute Abdominal Pain (DC), Acute Abdominal Pain (GEN) Additional Instructions: Follow up with Dr. Sherman out patient Warfarin 5mg po daily for three days INR repeat in three days. F/U with PMD this week. Referrals: Prakash Bangura MD [Staff Provider] - Gilbert Ryan MD, PhD [Staff Provider] - Rusty Burns MD [Staff Provider] -
--- NOTE | 2018-09-07 01:19 | CP.PCM.PN ---
Subjective - Date & Time of Evaluation Date of Evaluation: 09/05/18 Time of Evaluation: 12:00 - Subjective Subjective: No complaints. Objective - Vital Signs/Intake and Output Vital Signs (last 24 hours): Temp Pulse Resp BP Pulse Ox 98.2 F 76 14 118/63 100 09/06/18 11:56 09/06/18 12:52 09/06/18 12:52 09/06/18 12:52 09/06/18 12:52 Intake and Output: 09/06/18 09/07/18 18:59 06:59 Intake Total 100 Balance 100 - Labs Labs: 09/06/18 08:30 09/06/18 06:15 PT 16.8 Seconds (9.8-13.1) H 09/06/18 06:15 INR 1.5 09/06/18 06:15 APTT 26.8 Seconds (25.6-37.1) 09/05/18 04:11 - Head Exam Head Exam: ATRAUMATIC - Eye Exam Eye Exam: Normal appearance - ENT Exam ENT Exam: Mucous Membranes Dry - Respiratory Exam Respiratory Exam: NORMAL BREATHING PATTERN - Cardiovascular Exam Cardiovascular Exam: +S1, +S2 Assessment and Plan (1) Anemia Assessment & Plan: GI blood loss transfusion support Status: Acute
--- NOTE | 2018-09-07 01:21 | CP.PCM.PN ---
Subjective - Date & Time of Evaluation Date of Evaluation: 09/06/18 Time of Evaluation: 12:00 - Subjective Subjective: No complaints Objective - Vital Signs/Intake and Output Vital Signs (last 24 hours): Temp Pulse Resp BP Pulse Ox 98.2 F 76 14 118/63 100 09/06/18 11:56 09/06/18 12:52 09/06/18 12:52 09/06/18 12:52 09/06/18 12:52 Intake and Output: 09/06/18 09/07/18 18:59 06:59 Intake Total 100 Balance 100 - Labs Labs: 09/06/18 08:30 09/06/18 06:15 PT 16.8 Seconds (9.8-13.1) H 09/06/18 06:15 INR 1.5 09/06/18 06:15 APTT 26.8 Seconds (25.6-37.1) 09/05/18 04:11 - Head Exam Head Exam: ATRAUMATIC - Eye Exam Eye Exam: Normal appearance - ENT Exam ENT Exam: Mucous Membranes Dry - Respiratory Exam Respiratory Exam: NORMAL BREATHING PATTERN - Cardiovascular Exam Cardiovascular Exam: +S1, +S2 - GI/Abdominal Exam GI & Abdominal Exam: Normal Bowel Sounds Assessment and Plan (1) Anemia Assessment & Plan: GI blood loss resolved s/p transfusion support Status: Acute
== END 2018-09-06 15:39 | disposition home or self-care (01) | DRG 241 ==
LOC: H.ER 12:22 → H.ERHOLD 14:00 → H.ICU/CCU 15:42
PROC: 30233N1 Transfusion of Nonautologous Red Blood Cells into Peripheral Vein, Percutaneous Approach (ICD-10-PCS; 2018-09-02)
PROC: 05HM33Z Insertion of Infusion Device into Right Internal Jugular Vein, Percutaneous Approach (ICD-10-PCS; 2018-09-03)
PROC: 30233K1 Transfusion of Nonautologous Frozen Plasma into Peripheral Vein, Percutaneous Approach (ICD-10-PCS; 2018-09-03)
PROC: 0W3P8ZZ Control Bleeding in Gastrointestinal Tract, Via Natural or Artificial Opening Endoscopic (ICD-10-PCS; principal; 2018-09-03 07:30)
DX: K29.01 Acute gastritis with bleeding (principal); I95.89 Other hypotension; K80.42 Calculus of bile duct with acute cholecystitis without obstruction; D69.59 Other secondary thrombocytopenia; D62 Acute posthemorrhagic anemia; Q44.4 Choledochal cyst; K44.9 Diaphragmatic hernia without obstruction or gangrene; D72.828 Other elevated white blood cell count; I09.9 Rheumatic heart disease, unspecified; I10 Essential (primary) hypertension; Z79.01 Long term (current) use of anticoagulants; Z95.2 Presence of prosthetic heart valve; Z87.01 Personal history of pneumonia (recurrent)